=== PATIENT | female | born 1960 | race Caucasian/White ===

== ENCOUNTER 2023-06-18 06:16 | Outpatient (OUT) | payer OTHER, SELFPAY ==
--- NOTE | 2023-06-18 | PCN_ITS ---
CARDIAC STRESS TEST Requesting Physician:? Procedure Date:? 06/18/2023 This was a treadmill stress test with myocardial perfusion imaging performed at the [facility] on 06/18/2023.? Informed consent was obtained.? The patient was attached to electrocardiographic monitoring.? An intravenous line was secured. The patient exercised on the treadmill according to the Clement protocol.? Exercise time was 8 minutes and 31 seconds and the patient reached stage 3 of the protocol and achieved 10.1 METS. Cardiolite was injected at peak exercise. Resting heart rate was 51 BPM.? Maximum heart rate was 133 BPM, representing 84% of maximal predicted heart rate.? Resting blood pressure was 128/76 and maximum blood pressure was 188/82. Resting ECG showed sinus bradycardia with no ischemic changes.? ECG during treadmill exercise showed sinus tachycardia with occasional PVCs.? There was evidence of [address] segment depressions in leads 2, 3, AVF, V4, V5 and V6 that persisted into the recovery period.? After 4 minutes into recovery period, the ECG changes resolved and the ECG returned to baseline.? The patient developed dyspnea and severe nausea that resolved 2 minutes into recovery period. SUMMARY OF THE FINDINGS: 1.? Positive exercise stress test for exercise induced ischemic ECG changes. 2.? 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 3.? Resting hypertension with hypertensive response to exercise. 4. Myocardial perfusion imaging will be reported separately. TRESSA
--- NOTE | 2023-06-18 06:20 | NM_ITS ---
Patient: KAMAR DE LA TORRE Exam Date: 06/18/2023 : 1960 Gender:F Ordering : ANGELLA GANT Admission #: [id number] Family : DR Tristen Michaels . Order #: [id number] CLICK HERE TO VIEW EXAM RADIOLOGY REPORT PROCEDURE: NM KG PERF SPECT REST STR COMPARISON: None. INDICATIONS: Dyspnea on exertion TECHNIQUE: Exam Description: Stress/Rest one day protocol gated SPECT Rest Imagin.2 mCi Tc-99m Cardiolite IV on 06/18/2023 Stress Imaging 29.9 mCi Tc-99m Cardiolite IV on 06/18/2023 Exercise Protocol: Clement Heart Rate (bpm): Rest: 51 Max: 133 PMHR: 84 Blood Pressure: Rest: 128/76 Max: 188/82 Symptoms: fatigue, dyspnea, nausea Rest and peak stress ECG findings were abnormal and the exercise portion of the study was abnormal per attending physician Dr. Thomas due to EKG changes. For more details please see separate cardiac stress test report. FINDINGS: QUALITY OF STUDY: Excellent. PERFUSION DEFECT: None. LOCATION: N/A SIZE: N/A. SEVERITY: N/A. TYPE: N/A. WALL MOTION: Normal. LV SIZE: Normal. 73 mL. TID / TCD: None; 0.8 LVEF: Normal. Calculated EF 73%. SUMMARY: Myocardial perfusion imaging study is NORMAL. CONCLUSION: 1. Normal myocardial perfusion scan with no reversible ischemia 2. Abnormal exercise test secondary to EKG changes Dictated by: Vishal Botello MD on 06/19/2023 at 10:06 Approved by: Vishal Botello MD on 06/19/2023 at 10:08
== END 2023-06-18 06:17 | disposition home or self-care (01) ==
LOC: NM 06:16
PROVIDERS: PCP Family Medicine; Visit Provider Internal Medicine Cardiovascular Disease
DX: R07.9 Chest pain, unspecified (principal); R06.00 Dyspnea, unspecified; R53.83 Other fatigue; R11.0 Nausea
CPT/HCPCS: 78452; 93017; A9500

== ENCOUNTER 2023-06-20 14:07 | Outpatient (OUT) | payer OTHER, SELFPAY ==
--- NOTE | 2023-06-20 14:35 | CA_ITS ---
Patient: KAMAR DE LA TORRE Exam Date: 06/20/2023 : 1960 Gender:F Ordering : ANGELLA GANT Admission #: [id number] Family : Order #: [id number] CLICK HERE TO VIEW EXAM ECHOCARDIOGRAM REPORT PROCEDURE: CA ECHO DOPPLER COMPLETE INDICATIONS: Shortness of breath COMPARISON: None. DESCRIPTION: COMPLETE ECHOCARDIOGRAM Real-time transthoracic echocardiography with 2D, M-mode, spectral and color flow Doppler performed. QUALITY: Technical quality was good. LEFT VENTRICLE: Normal chamber size. Normal left ventricular wall thickness. Normal systolic function. LV EF: Normal left ventricular ejection fraction, (55%). DIASTOLIC: Normal diastolic function. ATRIAL SEPTUM: Visually appears intact. LEFT ATRIUM: Normal chamber size. RIGHT ATRIUM: Normal chamber size. RIGHT VENTRICLE: Normal chamber size. Normal right ventricular systolic function. TRICUSPID VALVE: Normal mobility and thickness. No stenosis with trivial regurgitation. No evidence of pulmonary hypertension. RVSP 33 mmHg MITRAL VALVE: Normal mobility and thickness. No evidence of mitral valve stenosis. There is no mitral annular calcification. Mild mitral regurgitation. AORTIC VALVE: Normal trileaflet appearance. No visible sclerosis. Normal leaflet mobility. No evidence of aortic valve stenosis. No aortic regurgitation. AORTIC ROOT: Normal diameter and appearance. PULMONIC VALVE: Normal thickness and mobility. No stenosis. Mild regurgitation. PERICARDIUM: No evidence of pericardial effusion. IVC: Collapses with inspirations. PLEURA: CONCLUSION: 1. Normal ventricular function. LVEF is 55%. 2. No significant valvular dysfunction. 3. Normal right-sided pressures. 4. No pericardial effusion. Adult Echocardiography Procedure Report Left Ventricle LVEDD (3.7 - 5.6 cm): 4.83 cm LVESD (2.2 - 4.0 cm): 3.25 cm LVIVS thickness (0.6 - 1.2 cm): 0.79 cm LVPW thickness (0.5 - 1.0 cm): 0.80 cm e': 0.10 m/s E - e': 4.74 LVOT Max Gradient: 2.54 mm[Hg] LVOT Area (cm2): 0.80 m/s Peak Velocity (LVOT): 0.80 m/s Mean Velocity (LVOT): 0.59 m/s LVOT Diameter 2.27 cm Left Atrium LA Volume Index (2D A2C): 27.53 ml/m2 Left Atrium Systolic Dimension: 3.79 cm Mitral Valve MV E to A Ratio: 0.71 Mitral Valve A-Wave Peak Velocity: 0.66 m/s Mitral Valve E-Wave Peak Velocity: 0.47 m/s Right Ventricle Aorta AO Root Diam: 3.07 cm Ascending Ao Diam: 2.51 cm Aortic Valve AoV Area (Peak Fernie): 2.42 cm2, 2.42 cm2 AoV Area (VTI): 2.47 cm2, 2.47 cm2 Peak Velocity(Antegrade Flow): 1.33 m/s Peak Gradient(Antegrade Flow): 7.05 mm[Hg] Mean Velocity(Antegrade Flow): 0.88 m/s Mean Gradient(Antegrade Flow): 3.60 mm[Hg] Velocity Time Integral: 30.52 cm Tricuspid Valve Peak Velocity (Regurgitant Flow): 2.75 m/s Pulmonic Valve Peak Velocity: 0.97 m/s Peak Gradient: 4.05 mm[Hg], 3.44 mm[Hg] Right Atrium Right Atrium Systolic Pressure: 37.56 ml, 37.56 ml Dictated by: Mundo Thomas M.D. on 06/20/2023 at 19:10 Approved by: Mundo Thomas M.D. on 06/20/2023 at 19:13
== END 2023-06-20 14:08 | disposition home or self-care (01) ==
LOC: CARD 14:07
PROVIDERS: PCP Family Medicine; Visit Provider Internal Medicine Cardiovascular Disease
DX: R06.02 Shortness of breath (principal)
CPT/HCPCS: 93306

== ENCOUNTER 2023-06-29 09:02 | Outpatient (OUT) | payer OTHER, SELFPAY ==
--- NOTE | 2023-06-29 | US_ITS ---
[address] [address] Patient Name: KAMAR DE LA TORRE MRN: [id number] date: 1960 Sex: F Assigned Patient Location: Current Patient Location: Accession/Order Number: [id number] Exam Date: 06/29/2023 09:15 Report Date: 06/29/2023 18:08 At the request of: ANGELA QUILES Procedure: US abdomen complete EXAM: US abdomen complete EXAM DATE: 06/29/2023 7:15 AM MDT COMPARISON: None available. INDICATION: R10.13 EPIGASTRIC PAIN FINDINGS: Liver parenchyma is homogeneous. Hepatic echotexture is relatively isoechoic to adjacent renal cortex (normal). Hepatic length measures 14.1 cm. Splenic parenchyma is homogeneous. Pancreas is partially obscured by bowel gas; visualized pancreatic parenchyma is homogeneous. Gallbladder is normally distended. No gallstones are identified. Gallbladder wall measures 1 mm. Sonographic Lyles's sign is absent. No intra-or extrahepatic bile duct dilatation noted. Portal vein is patent with normal hepatopedal flow. Aorta measures up to 2 cm in AP diameter. There is scattered atherosclerotic disease throughout the visualized aorta. No free fluid noted. Incidental note is made of a left ovarian cyst measuring up to 1.7 cm. No internal color Doppler flow is noted within this cyst. Dimensions- Common bile duct: 2.9 mm. Spleen: 9.5 cm in length. Right kidney: 9.9 x 6 x 5.7 cm. Left kidney: 9.5 x 4.8 x 4.2 cm. US/US abdomen complete IMPRESSION: 1. No acute sonographic abnormality identified within the abdomen. 2. Incidentally noted 1.7 cm simple appearing left ovarian cyst is within the physiological size range for a post-menopausal woman. 3. No gallstones or bile duct dilation identified. Sonographic Lyles's sign is absent. Electronically authenticated by: KANA MEJIA Date: 06/29/2023 18:08
== END 2023-06-29 09:03 | disposition home or self-care (01) ==
LOC: US 09:03
PROVIDERS: PCP Family Medicine; Visit Provider Nurse Practitioner Family
DX: R10.13 Epigastric pain (principal)
CPT/HCPCS: 76700

== ENCOUNTER 2023-10-08 11:39 | Outpatient (OUT) | payer OTHER, SELFPAY ==
[2023-10-08 11:59] LABS: Basophils Percent Auto 0.6 % (0.2-2.0); Eosinophils Percent Auto 0.7 % (0.9-7.0); Hematocrit 41.1 % (36.0-48.0); Hemoglobin 13.6 g/dL (12.0-16.0); Immature Granulocytes Abs Auto 0.01 10^3/uL (0.00-0.03); Immature Granulocytes Pct Auto 0.2 % (0.0-0.5); Lymphocytes Absolute Auto 1.2 10^3/uL (1.2-3.8); Lymphocytes Percent Auto 21.9 % (20.5-60.0); Mean Corpuscular HGB Conc 33.1 g/dL (29.9-35.2); Mean Corpuscular Volume 93.6 fL (81.0-99.0); Mean Platelet Volume 9.6 fL (9.5-13.5); Monocytes Absolute Auto 0.4 10^3/uL (0.3-0.8); Monocytes Percent Auto 7.9 % (1.7-12.0); Neutrophils Absolute Auto 3.7 10^3/uL (1.4-6.5); Neutrophils Percent Auto 68.7 % (43.0-75.0); Platelet Count 252 10^3/uL (150-450); Red Blood Count 4.39 10^6/uL (4.20-5.40); Red Cell Distribution Width 12.5 % (11.0-15.0); White Blood Count 5.3 10^3/uL (4.0-11.0)
[2023-10-08 13:37] LABS: Anion Gap 8.8; BUN Creatinine Ratio 18.3; Calcium 8.8 mg/dL (8.5-10.1); Carbon Dioxide 30.3 mmol/L (21.0-32.0); Chloride 105 mmol/L (98-107); Estimated GFR (African America >60 (>=60); Estimated GFR (Non-African Ame 51 (>=60); Glucose 83 mg/dL (74-106); Potassium 4.1 mmol/L (3.5-5.1); Sodium 140 mmol/L (136-145)
== END 2023-10-08 11:40 | disposition home or self-care (01) ==
LOC: LAB 11:43
PROVIDERS: PCP Family Medicine
DX: Z01.812 Encounter for preprocedural laboratory examination (principal); E04.1 Nontoxic single thyroid nodule
CPT/HCPCS: 36415; 80048; 85025

== ENCOUNTER 2023-11-30 12:40 | Outpatient (OUT) | payer OTHER, SELFPAY ==
--- OUTSIDE RECORDS SUMMARY | 2023-11-30 12:45 | XMS_ITS | CCD ---
Author Name Unknown Address [address] [place] [address] Organization [facility] Care Team Providers Care Cane Cutter Name Role Phone MD Payal Franco Attending Provider DIAB ., PAYAL Admitting Unavailable DIAB ., PAYAL Consulting Unavailable DIAB ., PAYAL Attending Unavailable HOY ., DR AGUAYO Primary Care Unavailable LEEROY VILLA Consulting Unavailable UNLUTL Consulting Unavailable HOY ., DR AGUAYO Admitting Unavailable HOY ., DR AGUAYO Primary Care Unavailable HOY ., DR AGUAYO Consulting Unavailable HOY ., DR AGUAYO Attending Unavailable ZIEBER, DR ANDREW Cabrera Consulting Unavailable HOY ., DR AGUAYO Attending Unavailable HOY ., DR AGUAYO Admitting Unavailable HOY ., DR AGUAYO Primary Care Unavailable LONAY ., DR AGUAYO Consulting Unavailable MD Dede Michaels Primary Care Provider [phone] MD Oziel Whalen Attending Provider Oziel Whalen Admitting Unavailable Oziel Whalen Attending Unavailable Ddee Michaels Primary Care Unavailable Diab, Payal A Admitting Unavailable Diab, Payal A Attending Unavailable Dede Michaels Primary Care Unavailable Markell Odell Unavailable ANGELLA JI Attending Unavailable ANGELLA JI Attending Unavailable ANGELLA JI Attending Unavailable Allergies Allergy Classification Reported Allergen(s) Allergy Type Date of Onset Reaction(s) Facility (1 source) bee venom Drug allergy (disorder) [facility] Repository (2 sources) venom-honey bee; Translations: [venom-honey bee] Allergy to substance 07-08-20 Anaphylaxis [facility] (2 sources) Sulfamethoxazole / Trimethoprim Drug Allergy upset stomach [employer] Other Medications Current Medications Medication Drug Class(es) Dates Sig (Normalized) Sig (Original) [id number] 200 actuat albuterol 0.09 mg/actuat metered dose inhaler (1 source) beta2-Adrenergi c Agonist Start: 07-08-2023 take 90 ug by inhalation every four hours Albuterol Sulfate Active 90 MCG INHALATION Q4H July 08, 2023 12:00am apixaban 5 mg oral tablet (1 source) Factor Xa Inhibitor Start: 07-08-2023 take 1 tablet by mouth once daily Apixaban (Eliquis) 5 mg tablet Active 5 MG PO Daily July 08, 2023 12:00am cholecalciferol 0.125 mg oral tablet (1 source) Vitamin D Start: 07-08-2023 take 1 tablet by mouth once daily Cholecalciferol (Vitamin D3) (Vitamin D3) 125 mcg (5,000 unit) Tablet Active 125 MCG PO Daily July 08, 2023 12:00am FLUoxetine 20 mg oral capsule (3 sources) Serotonin Reuptake Inhibitor Start: 07-08-2023 take 1 capsule by mouth once daily Fluoxetine (Prozac) 20 mg Capsule Active 20 MG PO Daily July 08, 2023 12:00am PROzac Active methIMAzole 10 mg oral tablet (3 sources) Thyroid Hormone Synthesis Inhibitor Start: 07-08-2023 Methimazole Active 1 0 MG PO LOADING DOSE July 08, 2023 12:00am methIMAzole Acti ve metoprolol tartrate 25 mg oral tablet (3 sources) beta-Adrenergic Julia Start: 07-08-2023 take 12.5 mg by mouth once daily Metoprolol Tartrate Active 12.5 MG PO Daily July 08, 2023 12:00am Metoprolol Tartr ate Active omeprazole 40 mg delayed release oral capsule (4 sources) Proton Pump Inhibitor Start: 08-16-2023 take 1 capsule by mouth once daily Omeprazole 40 MG 1 capsule 30 minutes before morning meal Orally Once a day for 30 day(s) Aug, Active Start: 07-09-2023 take 40 mg by mouth once daily Omeprazole Active 40 MG PO Daily July 09, 2023 12:00am Start: 07-08-2023 End: 07-09-2023 take 1 capsule by mouth once daily Omeprazole (Prilosec) 20 mg Capsule,Delayed Release(Dr/Ec) Discontinued 20 MG PO Daily July 08, 2023 12:00am July 09, 2023 2:03pm Problems Active Problems Problem Classification Problem Date Documented Da te Episodic/Chronic Abdominal hernia (2 sources) Diaphragmatic hernia without obstruction or gangrene Episodic Acute bronchitis (1 source) Acute bronchitis due to other specified organisms; Translations: [ACUTE BRONCHITIS D/T SPEC ORGANISMS] Onset: 04-30-2023 Episodic Cardiac dysrhythmias (3 sources) Unspecified atrial fibrillation; Translations: [Paroxysmal atrial fibrillation] Onset: 04-30-2023 Chronic Congestive heart failure; nonhypertensive (1 source) Unspecified diastolic (congestive) heart failure; Translations: [UNSPECIFIED DIASTOLIC HEART FAILURE] Onset: 06-13-2022 Chronic Heart valve disorders (1 source) Nonrheumatic pulmonary valve insufficiency; Translations: [NONRHEUMATIC PULMONARY VALVE INSUFF] Onset: 06-13-2022 Chronic Hypertension with complications and secondary hypertension (1 source) Hypertensive heart disease with heart failure; Translations: [HTN HEART DISEASE W/HEART FAIL] Onset: 06-13-2022 Chronic Other aftercare (1 source) 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; Translations: [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] Onset: 04-30-2023 Episodic Other gastrointestinal disorders (1 source) Dysphagia, unspecified; Translations: [Dysphagia, unspecified] Onset: 07-09-2023 Episodic Other lower respiratory disease (4 sources) Shortness of breath; Translations: [SHORTNESS OF BREATH] Onset: 04-29-2023 Episodic Other lower respiratory disease (1 source) Shortness of breath; Translations: [Shortness of breath] Onset: 04-29-2023 Episodic Thyroid disorders (1 source) Autoimmune thyroiditis; Translations: [AUTOIMMUNE THYROIDITIS] Onset: 04-30-2023 Chronic Viral infection (1 source) COVID-19; Translations: [COVID-19] Onset: 06-13-2022 Past or Other Problems Problem Classification Problem Date Documented Da te Episodic/Chronic Deficiency and other anemia (1 source) Anemia, unspecified; Translations: [ANEMIA UNSPECIFIED] Onset: 06-13-2022 Episodic Diabetes mellitus without complication (1 source) Other abnormal glucose; Translations: [OTHER ABNORMAL GLUCOSE] Onset: 06-13-2022 Episodic Other lower respiratory disease (5 sources) Dyspnea, unspecified; Translations: [DYSPNEA UNSPECIFIED] Onset: 06-02-2022 Episodic Other screening for suspected conditions (not mental disorders or infectious disease) (4 sources) Abnormal results of kidney function studies; Translations: [ABNORM RESULTS KIDNEY FUNCTION STDY] Onset: 06-11-2022 Episodic Results Test Name Value Interpretation Reference Range Facility Office Visiton 08-09-2023 Follow-up visit [id number] Liliana Vázquez 1960 F Date Provider Department Center 08/09/2023 3848-ANGELLA JI CARD [facility] Family History Problem Relation Age of Onset Stroke Mother Stroke Father Stroke Sister Family Status - Relation Status Age at Mother Father Sister Level of Service:91244 [place] OFFICE/OUTPATIENT ESTABLISHED MOD MDM 30-[address] [facility] Neeraj 07-09-2023 L - -------- Specimen: [id number] Received: 07/09/23 Status: MITCHELL Elina Num: [id number] Spec Type: Surgical Subm Dr: Oziel Whalen MD Tissues: A Esophagus Biopsy (ESOPHAGUS BX) Procedures: HE/Ivelisse, Gross/Micro L4 -------- Age/ Patient Sex Location Account Attending Physician -------- Liliana Vázquez 63/F [id number] Oziel Whalen MD -------- SPEC NUM: [id number] RECD: 07/09/23 STATUS: MITCHELL ANTOINE NUM: [id number] RUSYT: 07/09/23- [facility] DR: Oziel Whalen MD ENTERED: 07/09/[address] [facility] [address]: SPEC TYPE: Surgical DEPT: S ORDERED: HE/2, Gross/Micro L4 ORDERED: HE/2, Gross/Micro L4 Pathological Diagnosis Esophagus, biopsy: - Squamous esophageal mucosa with mild chronic esophagitis - No columnar mucosa identified - No evidence of eosinophilic esophagitis identified Clinical Information Dysphagia, rule out EOE Gross Description Received in formalin labeled with the patient's name, date of and esophagus biopsy is one padilla tissue measuring 0.5 x 0.2 x 0.1 cm. Entirely submitted in one cassette labeled A1. Microscopic Description Two H E slides reviewed. The microscopic examination confirms the diagnosis. -------- Specimen: [id number] Received: 07/09/23 Status: MITCHELL Antoine Num: [id number] Spec Type: Surgical Subm Dr: Oziel Whalen MD Tissues: A Esophagus Biopsy (ESOPHAGUS BX) Procedures: Caleb MARTIN -------- Patient: Liliana Vázquez [id number] (Continued) -------- Specimen: [id number] Received: 07/09/23 (Continued) Signed (signature on file) Jaylen Sauceda MD 07/11/23 1157 -------- Specimen: [id number] Received: 07/09/23 Status: MITCHELL Antoine Num: [id number] Spec Type: Surgical Subm Dr: Oziel Whalen MD Tissues: A Esophagus Biopsy (ESOPHAGUS BX) Procedures: Michael MARTIN/Felton L4 -------- Patient: Liliana Vázquez [id number] (Continued) -------- Specimen: [id number] Received: 07/09/23 (Continued) CPT Codes 53153 -------- -------- Specimen: [id number] Received: 07/09/23 Status: MITCHLEL Antoine Num: [id number] Spec Type: Surgical Subm Dr: Oziel Whalen MD Tissues: A Esophagus Biopsy (ESOPHAGUS BX) Procedures: HE/2, Gross/Micro L4 -------- Patient: Liliana Vázquez [id number] (Continued) -------- Signed (signature on file) Jaylen Sauceda MD 07/11/23 1157 [facility] 36on 07-02-2023 36 Patient's event monitor showed 19 mins of afib this morning. Strip was emailed to Dr. Ji who recommended she start Eliquis 5mg bid. I then spoke with patient who agreed to start it. Rx was sent to her pharmacy. [facility] Office Visiton 06-25-2023 Follow-up visit [id number] GurpreetLiliana S 1960 F Date Provider Department [facility] No family history on file Level of Service:18071 [place] OFFICE/OUTPATIENT ESTABLISHED MOD MDM 30-39 MIN [facility] Office Visiton 06-07-2023 Follow-up visit [id number] Liliana Vázquez 1960 F Date Provider Department Center 06/07/2023 ANGELLA GRIER ROMA [facility] No family history on file Level of Service:77474 [place] OFFICE/OUTPATIENT NEW MODERATE MDM 45-59 MINUTES [facility] BNPon 04-29-2023 Natriuretic peptide B (Bld) [Mass/Vol] 181.0 pg/mL Normal <=900.0 [facility] Comment on above: Performed By: #### B LOOSE HAND PACKER, CMP, CMADM ####[facility] [address] [place] [address]DrStefania Barnhart CARDIAC NAVA ADMITon 05-29-2 023 CK [Catalytic activity/Vol] 78 U/L Normal 26-192 [facility] Comment on above: Performed By: #### B LOOSE HAND PACKER, CMP, CMADM ####[facility] [address] [place] [address]Dr. Madison Barnhart CK.MB [Mass/Vol] ng/mL Normal <=3.60 [facility] Comment on above: Performed By: #### B LOOSE HAND PACKER, CMP, CMADM ####[facility] [address] [place] [address]Dr. Madison Barnhart HSTROP 5.2 pg/mL Normal 4.0-51.3 [facility] Comment on above: Result Comment: CUT- OFF POINTS HAVE BEEN ESTABLISHED BASED ON THE FOURTH UNIVERSAL DEFINITIONS OF MYOCARDIAL INFARCTION. THE UPPER REFERENCE LIMIT (URL) OF TROPONIN, DEFINED THE 99TH PERCENTILE OF cTnI DISTRIBUTION IN A REFERENCE POPULATION, HAS BEEN CONFIRMED THE DECISION THRESHOLD FOR MS DIAGNOSIS. Performed By: #### B LOOSE HAND PACKER, CMP, CMADM ####[facility] [address] [place] [address]Dr. Madison Barnhart KG 72 ng/mL Normal 9-82 [facility] Comment on above: Performed By: #### B LOOSE HAND PACKER, CMP, CMADM ####[facility] [address] [place], [place] [address]Dr. Madison Barnhart CBC AUTO DIFFon 04-29-2023 BASO # 0.0 103/ul Normal 0.0-0.1 [facility] Comment on above: Performed By: #### C BC ####[facility] [address] [place] [address]Dr. Madison Barnhart Basophils/100 WBC (Bld) 0.3 % Normal 0.2-2.0 [facility] Comment on above: Performed By: #### C BC ####[facility] [address] [place], [place] [address]DrStefania Barnhart EO # 0.1 103/ul Normal 0.0-0.7 [facility] Comment on above: Performed By: #### C BC ####[facility] [address] [place], [place] [address]DrStefania Barnhart Eosinophils/100 WBC (Bld) 2.2 % Normal 0.9-7.0 [facility] Comment on above: Performed By: #### C BC ####[facility] [address] [place] [address]Dr. Madison Barnhart Erythrocyte distribution width (RBC) [Ratio] 13.1 % Normal 11.0-15.0 [facility] Comment on above: Performed By: #### C BC ####[facility] [address] [place], [place] [address]Dr. Madison Barnhart Hematocrit (Bld) [Volume fraction] 42.1 % Normal 36.0-48.0 [facility] Comment on above: Performed By: #### C BC ####[facility] [address] [place], [place] [address]Dr. Madison Barnhart Hemoglobin (Bld) [Mass/Vol] 13.9 g/dL Normal 12.0-16.0 [facility] Comment on above: Performed By: #### C BC ####[facility] [address] [place], [place] [address]Dr. Madison Barnhart IG # 0.04 10e3/ul Critically high 0.00-0.03 The [facility] Comment on above: Performed By: #### C BC ####[facility] [address] [place], [place] [address]Dr. Madison Barnhart IG % 0.7 % Critically high 0.0-0.5 The [facility] Comment on above: Performed By: #### C BC ####[facility] [address] [place], [place] [address]Dr. Madison Barnhart LYMPH # 0.5 103/ul Critically low 1.2-3.8 The [facility] Comment on above: Performed By: #### C BC ####[facility] [address] [place], [place] [address]Dr. Madison Barnhart Lymphocytes/100 WBC (Bld) 7.9 % Critically low 20.5-60.0 [facility] Comment on above: Performed By: #### C BC ####[facility] [address] [place] [address]Dr. Madison Barnhart MANUAL DIFF REQ NO Normal [facility] Comment on above: Performed By: #### C BC ####[facility] [address] [place] [address]Dr. Madison Barnhart MCH (RBC) [Entitic mass] 30.7 pg Normal 26.7-34.0 [facility] Comment on above: Performed By: #### C BC ####[facility] [address] [place] [address]Dr. Madison Barnhart MCHC (RBC) [Mass/Vol] 33.0 g/dL Normal 29.9-35.2 [facility] Comment on above: Performed By: #### C BC ####[facility] [address] [place], [place] [address]Dr. Madison Obey MCV (RBC) [Entitic vol] 92.9 fL Normal 81.0-99.0 [facility] Comment on above: Performed By: #### C BC ####[facility] [address] [place], [place] [address]Dr. Madison Obey MONO # 0.8 103/ul Normal 0.3-0.8 [facility] Comment on above: Performed By: #### C BC ####[facility] [address] [place] [address]Dr. Lamarhilario Barnhart Monocytes/100 WBC (Bld) 13.1 % Critically high 1.7-12.0 [facility] Comment on above: Performed By: #### C BC ####[facility] [address] [place] [address]Dr. Madison Obey NEUT # 4.6 103/ul Normal 1.4-6.5 [facility] Comment on above: Performed By: #### C BC ####[facility] [address] [place], [place] [address]Dr. Madison Obey Neutrophils/100 WBC (Bld) 75.8 % Critically high 43.0-75.0 [facility] Comment on above: Performed By: #### C BC ####[facility] [address] [place], [place] [address]Zx. Madison Barnhart Platelet mean volume (Bld) [Entitic vol] 9.4 fL Critically low 9.5-13.5 [facility] Comment on above: Performed By: #### C BC ####[facility] [address] [place], [place] [address]Hr. Madison Barnhart PLT 237 103/ul Normal 150-450 [facility] Comment on above: Performed By: #### C BC ####[facility] [address] [place], [place] [address]Xl. Madison Barnhart RBC 4.53 106/ul Normal 4.20-5.40 [facility] Comment on above: Performed By: #### C BC ####[facility] [address] [place], [place] [address]Yf. Madison Barnhart WBC 6.0 103/ul Normal 4.0-11.0 [facility] Comment on above: Performed By: #### C BC ####[facility] [address] [place], [place] [address] CHEST W CONon 04-29-2023 CT CHEST W CON EXAMINATION: CT CHES T W CON HISTORY: SHORTNESS OF BREATH COMPARISON: XR chest 04/29/2023, CTA chest 06/02/2022. TECHNIQUE: Helical axial CT images of the chest were obtained after the administration of intravenous contrast. Dose reduction techniques were achieved by using automated exposure control and/or adjustment of mA and/or kV according to patient size and/or use of iterative reconstruction technique. FINDINGS: VASCULATURE: No aneurysm. No atherosclerotic calcification. HEART/PERICARDIUM: The heart is normal in size. No pericardial effusion. MEDIASTINAL/HILAR LYMPH NODES: No lymphadenopathy. ESOPHAGUS: Normal as visualized. PLEURAL CAVITY: No pleural effusion or pneumothorax. LUNGS/AIRWAYS: No areas of consolidation, nodule or mass is seen. There are areas of scarring in bilateral apex, bilateral lower lobes and right middle lobe. The central airways are patent. CHEST WALL/AXILLA/LOWER NECK: There are small low-attenuation nodules in bilateral thyroid lobes. VISUALIZED UPPER ABDOMEN: Images through the upper abdomen demonstrates no acute abnormality. Decreased density of the liver, likely represent steatosis. BONES: No acute process.. IMPRESSION: No acute cardiopulmonary abnormality. Small low-attenuation nodules in bilateral thyroid lobes. Ultrasound is recommended for better evaluation on nonemergent basis. Electronically authenticated by: TL UNLU Date: 2023-04-29 14:57 Normal [facility] D-Dimer High Sensitivityon 0 04-29-2023 D-Dimer High Sensitivity < 200 Normal 0-243 [facility] Comment on above: Result Comment: The reference range for D-dimer is <243 ng/mL D-dimer units. D-dimer results must be used in conjunction with a clinical pretest probability (PTP) assessment model for deep vein thrombosis (DVT) and pulmonary embolism (PE). Results <230 ng/mL d-dimer units can be used as a negative predictor in patients with low or moderate probability for DVT/PE. Results above the exclusion threshold of 230 ng/ml D-dimer units for DVT/PE may indicate the need for further diagnostic testing. D-Dimer can be increased in hospitalized patients due to co-morbid conditions. PERFORMED BY: [place] [address] PATHOLOGIST FENCE INSTALLER HELPER HOWIE BARKER M.D. Performed By: #### D DIMER #### [address] No Panel InformationOrdered By: Payal Franco on 04-29-2023 D-Dimer Quantitative (PE/DVT) < 200 ng/mL 0-243 [facility] Comment on above: The reference range for D-dimer is <243 ng/mL D-dimer units.D-dimer results must be used in conjunction with a clinicalpretest probability (PTP) assessment model for deep veinthrombosis (DVT) and pulmonary embolism (PE). Results <230ng/mL d-dimer units can be used as a negative predictor inpatients with low or moderate probability for DVT/PE.Results above the exclusion threshold of 230 ng/ml D-dimerunits for DVT/PE may indicate the need for furtherdiagnostic testing.D-Dimer can be increased in hospitalized patients due toco-morbid conditions. PROF 14(COMP METB)on 023 Albumin [Mass/Vol] 3.2 g/dL Critically low 3.4-5.0 [facility] Comment on above: Performed By: #### B LOOSE HAND PACKER, CMP, CMADM ####[facility] [address] [place] [address]Dr. Madison Obey Albumin/Globulin [Mass ratio] 1.1 {ratio} Normal [facility] Comment on above: Performed By: #### B LOOSE HAND PACKER, CMP, CMADM ####[facility] [address] [place] [address]Dr. Madison Barnhart ALP [Catalytic activity/Vol] 119 U/L Critically high 46-116 [facility] Comment on above: Performed By: #### B LOOSE HAND PACKER, CMP, CMADM ####[facility] [address] [place] [address]Dr. Madison Barnhart ALT [Catalytic activity/Vol] 32 U/L Normal 14-59 [facility] Comment on above: Performed By: #### B LOOSE HAND PACKER, CMP, CMADM ####[facility] [address] [place] [address]Dr. Madison Barnhart Anion gap [Moles/Vol] 10.4 mmol/L Normal [facility] Comment on above: Performed By: #### B LOOSE HAND PACKER, CMP, CMADM ####[facility] [address] [place] [address]Dr. Madison Barnhart AST [Catalytic activity/Vol] 21 U/L Normal 15-37 [facility] Comment on above: Performed By: #### B LOOSE HAND PACKER, CMP, CMADM ####[facility] [address] [place] [address]Dr. Madison Barnhart Bilirubin [Mass/Vol] 0.6 mg/dL Normal 0.2-1.0 [facility] Comment on above: Performed By: #### B LOOSE HAND PACKER, CMP, CMADM ####[facility] [address] [place] [address]Dr. Madison Barnhart Calcium [Mass/Vol] 8.2 mg/dL Critically low 8.5-10.1 [facility] Comment on above: Performed By: #### B LOOSE HAND PACKER, CMP, CMADM ####[facility] [address] [place] [address]Dr. Madison Barnhart Chloride [Moles/Vol] 107 mmol/L Normal 98-107 [facility] Comment on above: Performed By: #### B LOOSE HAND PACKER, CMP, CMADM ####[facility] [address] [place] [address]Dr. Madison Barnhart CO2 [Moles/Vol] 27.7 mmol/L Normal 21.0-32.0 [facility] Comment on above: Performed By: #### B LOOSE HAND PACKER, CMP, CMADM ####[facility] [address] [place] [address]Dr. Madison Barnhart Creatinine [Mass/Vol] 1.19 mg/dL Critically high 0.55-1.02 [facility] Comment on above: Performed By: #### B LOOSE HAND PACKER, CMP, CMADM ####[facility] [address] [place] [address]Dr. Madison Barnhart EGFR-AF GUATEMALAN 56 mL/min/1.73m2 Critically low >=60 [facility] Comment on above: Performed By: #### B LOOSE HAND PACKER, CMP, CMADM ####[facility] [address] [place] [address]Dr. Madison Barnhart EGFR-NON AF GUATEMALAN 46 mL/min/1.73m2 Critically low >=60 [facility] Comment on above: Performed By: #### B LOOSE HAND PACKER, CMP, CMADM ####[facility] [address] [place] [address]Dr. Madison Barnhart Globulin (S) [Mass/Vol] 3.0 g/dL Normal [facility] Comment on above: Performed By: #### B LOOSE HAND PACKER, CMP, CMADM ####[facility] [address] [place] [address]Dr. Madison Barnhart Glucose [Mass/Vol] 122 mg/dL Critically high 74-106 [facility] Comment on above: Performed By: #### B LOOSE HAND PACKER, CMP, CMADM ####[facility] [address] [place] [address]Dr. Madison Barnhart Potassium [Moles/Vol] 4.1 mmol/L Normal 3.5-5.1 [facility] Comment on above: Performed By: #### B LOOSE HAND PACKER, CMP, CMADM ####[facility] [address] [place] [id number]. Madison Barnhart Protein [Mass/Vol] 6.2 g/dL Critically low 6.4-8.2 [facility] Comment on above: Performed By: #### B LOOSE HAND PACKER, CMP, CMADM ####[facility] [address] [place] [id number]. Madison Barnhart Sodium [Moles/Vol] 141 mmol/L Normal 136-145 [facility] Comment on above: Performed By: #### B LOOSE HAND PACKER, CMP, CMADM ####[facility] [address] [place] [id number]. Madison Barnhart Urea nitrogen [Mass/Vol] 16.0 mg/dL Normal 7.0-18.0 [facility] Comment on above: Performed By: #### B LOOSE HAND PACKER, CMP, CMADM ####[facility] [address] [id number]. Madison Barnhart Urea nitrogen/Creatinine [Mass ratio] 13.4 mg/mg Normal [facility] Comment on above: Performed By: #### B LOOSE HAND PACKER, CMP, CMADM ####[facility] [address] [place] [address]Dr. Madison Barnhart TROPONIN, HIGH SENSITIVITYon 04-29-2023 HSTROP 5.2 pg/mL Normal 4.0-51.3 [facility] Comment on above: Result Comment: CUT- OFF POINTS HAVE BEEN ESTABLISHED BASED ON THE FOURTH UNIVERSAL DEFINITIONS OF MYOCARDIAL INFARCTION. THE UPPER REFERENCE LIMIT (URL) OF TROPONIN, DEFINED THE 99TH PERCENTILE OF cTnI DISTRIBUTION IN A REFERENCE POPULATION, HAS BEEN CONFIRMED THE DECISION THRESHOLD FOR MS DIAGNOSIS. Performed By: #### H STROPN #### [facility] Laboratory [address] [address] [address] Madison Barnhart XR CHEST 1 Von 04-29-2023 XR CHEST 1 V XR CHEST 1 V 04/29/2023 11:20 AM EDT INDICATION: Dyspnea COMPARISON: CT angiography of the chest 06/02/2022, radiograph of the chest 05/06/2019 FINDINGS: Cardiomediastinal silhouette within normal limits. No focal consolidation or pleural effusion. No pneumothorax. No acute fracture or dislocation. IMPRESSION: No acute cardiopulmonary process. Electronically authenticated by: LEEROY VILLA Date: 2023-04-29 11:45 Normal [facility] CREATININE CLEARon 2 CREA CLEARANCE 79.62 ml/min Normal 75.00-115.[address] [facility] Comment on above: Result Comment: Prev iously reported as: 1.74 On 06/11/2022 10:36 By [email or web address] Performed By: #### C REACL #### [facility] Laboratory [address] [place] [address] Dr. Madison Barnhart CREA, 24 HR UR 1359.90 mg/24 hr Normal 800.00-1, 800. 00 [facility] Comment on above: Performed By: #### C REACL #### [facility] Laboratory [address] [place] [address] Dr. Madison Barnhart Creatinine [Mass/Vol] 1.08 mg/dL Critically high 0.55-1.02 [facility] Comment on above: Result Comment: repe ated Previously reported as: 49.42 On 06/11/2022 10:36 By [email or web address] Performed By: #### C REACL #### [facility] [address] [place] [address] Dr. Madison Barnhart UR TOT VOL 3000 ml/24 HR Normal [facility] Comment on above: Performed By: #### C REACL #### [facility] [address] [place] [address] Dr. Madison Barnhart URINE CREAT 45.33 mg/dL Normal 20.00-300.00 [facility] Comment on above: Performed By: #### C REACL #### [facility] Laboratory [address] [place] [address] Dr. Madison Barnhart ECHOCARDIO M/2D COMPLETEon 0 06-11-2022 ECHOCARDIO M/2D COMPLETE Patient: LILIANA VÁZQUEZ Exam Date: 06/11/2022 : 1960 Gender:F Ordering : DR DEDE MICHAELS . Admission #: [id number] Family : Order #: [id number] CLICK HERE TO VIEW EXAM ECHOCARDIOGRAM REPORT PROCEDURE: CARDIO PULMONARY ECHOCARDIO M/2D COMP INDICATIONS: Dyspnea, Acute Covid COMPARISON: None. DESCRIPTION: COMPLETE ECHOCARDIOGRAM Real-time transthoracic echocardiography with 2D, M-mode, spectral and color flow Doppler performed. QUALITY: Technical quality was good. LEFT VENTRICLE: Normal chamber size. Normal wall thickness. Global left ventricular systolic function is normal. LV EF: Calculated left ventricular ejection fraction is 61% DIASTOLIC: Normal diastolic function. ATRIAL SEPTUM: LEFT ATRIUM: Normal chamber size. RIGHT ATRIUM: Mild dilatation. RIGHT VENTRICLE: Normal chamber size. Normal right ventricular systolic function. TRICUSPID VALVE: Normal mobility and thickness. No stenosis with trivial regurgitation. No evidence of pulmonary hypertension. RVSP 33 mmHg MITRAL VALVE: Mild anterior leaflet prolapse. No evidence of mitral valve stenosis. There is no mitral annular calcification. Mild mitral regurgitation. AORTIC VALVE: Normal trileaflet appearance. No visible sclerosis. Normal leaflet mobility. No evidence of aortic valve stenosis. No aortic regurgitation. AORTIC ROOT: Normal diameter and appearance. PULMONIC VALVE: Normal thickness and mobility. No stenosis. Mild regurgitation. PERICARDIUM: No evidence of pericardial effusion. IVC: Normal in size and collapses with inspiration. PLEURA: CONCLUSION: 1. Normal left ventricular size and wall thickness. Normal systolic function. LVEF is 60 to 65%. 2. Normal right ventricular size and systolic function. 3. Normal diastolic function. 4. Mild anterior mitral leaflet prolapse with mild regurgitation. 5. Mild pulmonary regurgitation. 6. Normal right-sided pressures. 7. No pericardial effusion. Dictated by: Mundo Thomas M.D. on 06/11/2022 at 16:21 Approved by: Mundo Thomas M.D. on 06/11/2022 at 16:26 Normal [facility] PROTEIN 24HR URINEon 022 T PROT, 24 HR UR 123.0 mg/24 hr Normal <=149.1 [facility] Comment on above: Performed By: #### P ROT24U ####[facility] [address] [place], [place] [address]QxStefania Barnhart UR PROT 4.1 mg/dL Normal <=11.9 [facility] Comment on above: Performed By: #### P ROT24U ####[facility] [address] [place] [address]DrStefania Barnhart UR TOT VOL 3000 ml/24 HR Normal [facility] Comment on above: Performed By: #### P ROT24U ####[facility] [address] [place] [address]DrStefania Barnhart INSULINon 06-05-2022 Insulin 10.2 uIU/mL Normal 2.6-24.9 [facility] Comment on above: Performed By: #### I NSULIN ####[facility] [address] [place] [address]DrStefania Barnhart BNPon 06-02-2022 Natriuretic peptide B (Bld) [Mass/Vol] 215.0 pg/mL Normal <=900.0 [facility] Comment on above: Performed By: #### L IPID, T7, TSH, BNP, CMP #### [facility] Laboratory [address] [address] [address] Madison Barnhart CBC AUTO DIFFon 06-02-2022 BASO # 0.0 103/ul Normal 0.0-0.1 [facility] Comment on above: Performed By: #### C BC ####[facility] [address] [place] [address]DrStefania Barnhart Basophils/100 WBC (Bld) 0.7 % Normal 0.2-2.0 [facility] Comment on above: Performed By: #### C BC ####[facility] [address] [place] [address]DrStefania Barnhart EO # 0.1 103/ul Normal 0.0-0.7 [facility] Comment on above: Performed By: #### C BC ####[facility] [address] [place] [address]DrStefania Barnhart Eosinophils/100 WBC (Bld) 1.5 % Normal 0.9-7.0 [facility] Comment on above: Performed By: #### C BC ####[facility] [address] [place], [place] [address]DrStefania Barnhart Erythrocyte distribution width (RBC) [Ratio] 13.2 % Normal 11.0-15.0 [facility] Comment on above: Performed By: #### C BC ####[facility] [address] [place] [address]Dr. Madison Barnhart Hematocrit (Bld) [Volume fraction] 42.2 % Normal 36.0-48.0 [facility] Comment on above: Performed By: #### C BC ####[facility] [address] [place] [address]Dr. Madison Barnhart Hemoglobin (Bld) [Mass/Vol] 13.7 g/dL Normal 12.0-16.0 [facility] Comment on above: Performed By: #### C BC ####[facility] [address] [place], [place] [address]Dr. Madison Barnhart IG # 0.04 10e3/ul Critically high 0.00-0.03 [facility] Comment on above: Performed By: #### C BC ####[facility] [address] [place], [place] [address]Dr. Madison Barnhart IG % 0.7 % Critically high 0.0-0.5 [facility] Comment on above: Performed By: #### C BC ####[facility] [address] [place], [place] [address]Dr. Madison Barnhart LYMPH # 1.3 103/ul Normal 1.2-3.8 [facility] Comment on above: Performed By: #### C BC ####[facility] [address] [place], [place] [address]Dr. Madison Barnhart Lymphocytes/100 WBC (Bld) 23.3 % Normal 20.5-60.0 [facility] Comment on above: Performed By: #### C BC ####[facility] [address] [place], [place] [address]Dr. Madison Barnhart MANUAL DIFF REQ NO Normal [facility] Comment on above: Performed By: #### C BC ####[facility] [address] [place], [place] [address]Dr. Madison Barnhart MCH (RBC) [Entitic mass] 30.6 pg Normal 26.7-34.0 [facility] Comment on above: Performed By: #### C BC ####[facility] [address] [place] [address]Dr. Lamarhilario Obey MCHC (RBC) [Mass/Vol] 32.5 g/dL Normal 29.9-35.2 [facility] Comment on above: Performed By: #### C BC ####[facility] [address] [place] [address]Dr. Madison Barnhart MCV (RBC) [Entitic vol] 94.2 fL Normal 81.0-99.0 [facility] Comment on above: Performed By: #### C BC ####[facility] [address] [place], [place] [address]DrStefania Barnhart MONO # 0.5 103/ul Normal 0.3-0.8 [facility] Comment on above: Performed By: #### C BC ####[facility] [address] [place], [place] [address]Dr. Madison Barnhart Monocytes/100 WBC (Bld) 8.8 % Normal 1.7-12.0 [facility] Comment on above: Performed By: #### C BC ####[facility] [address] [place], [place] [address]DrStefania Barnhart NEUT # 3.5 103/ul Normal 1.4-6.5 [facility] Comment on above: Performed By: #### C BC ####[facility] [address] [place], [place] [address]Dr. Madison Barnhart Neutrophils/100 WBC (Bld) 65.0 % Normal 43.0-75.0 [facility] Comment on above: Performed By: #### C BC ####[facility] [address] [place], [place] [address]DrStefania Barnhart Platelet mean volume (Bld) [Entitic vol] 9.0 fL Critically low 9.5-13.5 [facility] Comment on above: Performed By: #### C BC ####[facility] [address] [place], [place] [address]Dr. Madison Barnhart PLT 245 103/ul Normal 150-450 [facility] Comment on above: Performed By: #### C BC ####[facility] [address] [place] [address]Dr. Madison Barnhart RBC 4.48 106/ul Normal 4.20-5.40 [facility] Comment on above: Performed By: #### C BC ####[facility] [address] [place] [id number] Barnhart WBC 5.4 103/ul Normal 4.0-11.0 [facility] Comment on above: Performed By: #### C BC ####[facility] [address] [place] [address]Dr. Madison Barnhart FREE THYROXINE INDEX T7on FTI 2.26 Normal 1.30-4.50 [facility] Comment on above: Performed By: #### L IPID, T7, TSH, BNP, CMP #### [facility] Laboratory [address] [address] [address] Madison Barnhart T3U 31.0 % Normal 30.0-39.0 [facility] Comment on above: Performed By: #### L IPID, T7, TSH, BNP, CMP #### [facility] [address] [address] [address] Madison Barnhart T4 [Mass/Vol] 7.30 ug/dL Normal 4.80-13.90 [facility] Comment on above: Performed By: #### L IPID, T7, TSH, BNP, CMP #### [facility] [address] [address] [address] Madison Barnhart GLYCOHEMOGLOBIN A1Con 2021 ADA RECOMMENDATION SEE BELOW Normal [facility] Comment on above: Result Comment: ADA RECOMMENDED LIMIT 4.0 - 6.0 ADA THERAPEUTIC TARGET < 7.0 ACTION SUGGESTED > 7.0 Performed By: #### A 1C ####[facility] [address] [place] [address]Dr. Madison Barnhrat Glucose [Mass/Vol] 117 mg/dL Normal [facility] Comment on above: Performed By: #### A 1C ####[facility] [address] [place], [place] [address]OkStefania Barnhart HbA1c (Bld) [Mass fraction] 5.7 % Normal 4.5-6.2 [facility] Comment on above: Performed By: #### A 1C ####[facility] [address] [place], [place] [address]YeStefania Barnhart IRONon 06-02-2022 Iron [Mass/Vol] 85.0 ug/dL Normal 50.0-170.0 [facility] Comment on above: Performed By: #### I JACK ####[facility] [address] [place], [place] [address]JcStefania Barnhart LIPID PROFILEon 06-02-2022 CHOL-HDL RATIO NORM SEE BELOW Normal [facility] Comment on above: Result Comment: 3.3 - 4.4 LOW RISK 4.4 - 7.1 AVERAGE RISK 7.1 - 11.0 MODERATE RISK >11.0 HIGH RISK Performed By: #### L IPID, T7, TSH, BNP, CMP #### [facility] [address] [address] [address] Madison Barnhart Cholesterol [Mass/Vol] 238 mg/dL Critically high <=200 [facility] Comment on above: Performed By: #### L IPID, T7, TSH, BNP, CMP #### [facility] [address] [place], [place] [address] Dr. Madison Barnhart Cholesterol in HDL [Mass/Vol] 90 mg/dL Critically high 40-60 [facility] Comment on above: Performed By: #### L IPID, T7, TSH, BNP, CMP #### [facility] [address] [address] [address] Madison Barnhart Cholesterol in LDL [Mass/Vol] 132.4 mg/dL Normal [facility] Comment on above: Performed By: #### L IPID, T7, TSH, BNP, CMP #### [facility] [address] [address] [address] Madison Barnhart Cholesterol.total/Chol esterol in HDL [Mass ratio] 2.6 {ratio} Normal [facility] Comment on above: Performed By: #### L IPID, T7, TSH, BNP, CMP #### [facility] [address] [address] [address] Madison Barnhart HDL NORMAL > or = 60 mg/dl - LO W CARDIOVASCULAR RISK <40 mg/dl - HIGH CARDIOVASCULAR RISK Normal [facility] Comment on above: Performed By: #### L IPID, T7, TSH, BNP, CMP #### [facility] [address] [address] [address] Madison Barnhart LDL CALC NORMAL SEE BELOW Normal [facility] Comment on above: Result Comment: <100 mg/dl OPTIMAL 100 - 129 mg/dl NEAR OR ABOVE OPTIMAL 130 - 159 mg/dl BORDERLINE HIGH 160 - 189 mg/dl HIGH >190 mg/dl VERY HIGH Performed By: #### L IPID, T7, TSH, BNP, CMP #### [facility] Laboratory [address] [place] [address] Dr. Madison Barnhart Triglyceride [Mass/Vol] 78 mg/dL Normal <=150 [facility] Comment on above: Performed By: #### L IPID, T7, TSH, BNP, CMP #### [facility] [address] [place] [address] Dr. Madison Barnhart VLDL CALC 15.6 mg/dL Normal [facility] Comment on above: Performed By: #### L IPID, T7, TSH, BNP, CMP #### [facility] [address] [place] [address] Dr. Madison Barnhart PROF 14(COMP METB)on 022 Albumin [Mass/Vol] 3.5 g/dL Normal 3.4-5.0 [facility] Comment on above: Performed By: #### L IPID, T7, TSH, BNP, CMP #### [facility] [address] [place] [address] Dr. Madison Barnhart Albumin/Globulin [Mass ratio] 1.1 {ratio} Normal [facility] Comment on above: Performed By: #### L IPID, T7, TSH, BNP, CMP #### [facility] [address] [place] [address] Dr. Madison Barnhart ALP [Catalytic activity/Vol] 92 U/L Normal 46-116 [facility] Comment on above: Performed By: #### L IPID, T7, TSH, BNP, CMP #### [facility] [address] [place] [address] Dr. Madison Barnhart ALT [Catalytic activity/Vol] 28 U/L Normal 14-59 [facility] Comment on above: Performed By: #### L IPID, T7, TSH, BNP, CMP #### [facility] [address] [place] [address] Dr. Madison Barnhart Anion gap [Moles/Vol] 10.6 mmol/L Normal [facility] Comment on above: Performed By: #### L IPID, T7, TSH, BNP, CMP #### [facility] [address] [place] [address] Dr. Madison Barnhart AST [Catalytic activity/Vol] 17 U/L Normal 15-37 [facility] Comment on above: Performed By: #### L IPID, T7, TSH, BNP, CMP #### [facility] [address] [place] [address] Dr. Madison Barnhart Bilirubin [Mass/Vol] 0.5 mg/dL Normal 0.2-1.0 [facility] Comment on above: Performed By: #### L IPID, T7, TSH, BNP, CMP #### [facility] [address] [place] [address] Dr. Madison Barnhart Calcium [Mass/Vol] 8.4 mg/dL Critically low 8.5-10.1 [facility] Comment on above: Performed By: #### L IPID, T7, TSH, BNP, CMP #### [facility] [address] [place] [address] Dr. Madison Barnhart Chloride [Moles/Vol] 105 mmol/L Normal 98-107 [facility] Comment on above: Performed By: #### L IPID, T7, TSH, BNP, CMP #### [facility] [address] [place] [address] Dr. Madison Barnhart CO2 [Moles/Vol] 28.3 mmol/L Normal 21.0-32.0 [facility] Comment on above: Performed By: #### L IPID, T7, TSH, BNP, CMP #### [facility] [address] [place] [address] Dr. Madison Barnhart Creatinine [Mass/Vol] 1.08 mg/dL Critically high 0.55-1.02 [facility] Comment on above: Performed By: #### L IPID, T7, TSH, BNP, CMP #### [facility] [address] [address] [address] Madison Barnhart EGFR-AF GUATEMALAN >60 Normal >=60 [facility] Comment on above: Performed By: #### L IPID, T7, TSH, BNP, CMP #### [facility] [address] [place] [address] Dr. Madison Barnhart EGFR-NON AF GUATEMALAN 52 mL/min/1.73m2 Critically low >=60 [facility] Comment on above: Performed By: #### L IPID, T7, TSH, BNP, CMP #### [facility] [address] [place] [address] Dr. Madison Barnhart Globulin (S) [Mass/Vol] 3.3 g/dL Normal [facility] Comment on above: Performed By: #### L IPID, T7, TSH, BNP, CMP #### [facility] [address] [place] [address] Dr. Madison Barnhart Glucose [Mass/Vol] 99 mg/dL Normal 74-[address] [facility] Comment on above: Performed By: #### L IPID, T7, TSH, BNP, CMP #### [facility] [address] [place] [address] Dr. Madison Barnhart Potassium [Moles/Vol] 3.9 mmol/L Normal 3.5-5.1 [facility] Comment on above: Performed By: #### L IPID, T7, TSH, BNP, CMP #### [facility] [address] [place] [address] Dr. Madison Barnhart Protein [Mass/Vol] 6.8 g/dL Normal 6.4-8.[address] [facility] Comment on above: Performed By: #### L IPID, T7, TSH, BNP, CMP #### [facility] [address] [address] [address] Madison Barnhart Sodium [Moles/Vol] 140 mmol/L Normal 136-145 [facility] Comment on above: Performed By: #### L IPID, T7, TSH, BNP, CMP #### [facility] [address] [address] [address] Madison Barnhart Urea nitrogen [Mass/Vol] 22.0 mg/dL Critically high 7.0-18.0 [facility] Comment on above: Performed By: #### L IPID, T7, TSH, BNP, CMP #### [facility] [address] [address] [address] Madison Barnhart Urea nitrogen/Creatinine [Mass ratio] 20.4 mg/mg Normal [facility] Comment on above: Performed By: #### L IPID, T7, TSH, BNP, CMP #### [facility] [address] [address] [address] Madison Barnhart TSHon 06-02-2022 TSH 1.046 uIU/mL Normal 0.358-3.740 [facility] Comment on above: Performed By: #### L IPID, T7, TSH, BNP, CMP #### [facility] [address] [address] [address] Madison Barnhart Ambulatory Clinical Summaryo n 08-09-2020 Ambulatory Clinical Summary {[id number] Normal [facility] Coding Summary.on 10-27-2019 Coding Summary. CODING DATE: 10/27/2019 FINAL [facility] STATUS: Home (Routine DC) PAYOR: Ivana APC DESCRIPTION 5671 Level 1 Pathology ADMIT DX: REASON FOR VISIT DX: L91.8 Other hypertrophic disorders of the skin FINAL DX: PRINCIPAL: L91.8 Other hypertrophic disorders of the skin SECONDARY: PYMT PROC APC STAT DESCRIPTION DOCTOR NAME DATE NOTE: The code number assigned matches the documented diagnosis and / or procedure in the patient's chart. However, the narrative phrase printed from the coding software may appear abbreviated, or result in slightly different terminology. Coded By: Christa Marcus Date Saved: 10/27/2019 03:40 pm [facility] Vital Signs Date Time Vital Sign Value Performing Clinician Facility 08-16-2023 14:00-0400 Body height 172.72 cm Markell Odell Other [employer] Other 08-16-2023 14:00-0400 Body mass index (BMI) [Ratio] 25.39 kg/m2 Markell Odell Other [employer] Other 08-16-2023 14:00-0400 Body weight 75.75 kg Markell Odell Other [employer] Other 08-16-2023 14:00-0400 Diastolic blood pressure 78 mm[Hg] Markell Odell Other [employer] Other 08-16-2023 14:00-0400 Systolic blood pressure 138 mm[Hg] Markell Odell Other [employer] Other 07-09-2023 14:02-0400 Diastolic blood pressure 67 mm[Hg] MD Dede Michaels Work Phone: [facility] 07-09-2023 14:02-0400 Heart rate 55 /min MD Dede Michaels Work Phone: [facility] 07-09-2023 14:02-0400 Respiratory rate 16 /min MD Dede Michaels Work Phone: [facility] 07-09-2023 14:02-0400 SaO2% (BldA) [Mass fraction] 98 % MD Dede Michaels Work Phone: [facility] 07-09-2023 14:02-0400 Systolic blood pressure 128 mm[Hg] MD Dede Michaels Work Phone: [facility] 07-09-2023 12:16040 Body height 172.72 cm MD Dede Michaels Work Phone: [facility] 07-09-2023 12:16040 Body temperature 97.8 [degF] MD Dede Michaels Work Phone: [facility] 07-09-2023 12:16 Body weight 77.11 kg MD Dede Michaels Work Phone: [facility] Encounters Encounter Date Encounter Type Care Provider Facility Start: 08-20-2023 End: 08-20-2023 ambulatory Markell Odell Other [employer] Other Start: 08-20-2023 Telephone encounter [facility] Start: 08-16-2023 End: 08-16-2023 ambulatory Markell Odell Other [employer] Other Start: 08-16-2023 Office outpatient visit 15 minutes Markell Odell [facility] Start: 08-09-2023 End: 08-12-2023 ambulatory [facility] Start: 07-09-2023 End: 07-09-2023 ambulatory Oziel Whalen Facility:[facility] Start: 07-09-2023 End: 07-09-2023 Admission to same day surgery center MD Dede Michaels Work Phone: [facility] Work Phone: Start: 07-09-2023 End: 07-09-2023 ambulatory MD Dede Michaels Work Phone: [facility] Work Phone: Start: 06-25-2023 End: 06-25-2023 ambulatory [facility] Start: 06-07-2023 End: 06-07-2023 ambulatory [facility] Start: 04-29-2023 End: 04-29-2023 ambulatory PAYAL FRANCO . [facility] Work Phone: Start: 04-29-2023 End: 04-29-2023 Departed Referred MD Payal Franco Work Phone: [facility] Work Phone: Start: 06-11-2022 End: 06-12-[address] DEDE MICHAELS . Facility: Start: 06-02-2022 End: 06-03-[address] DEDE MICHAELS . Facility: Procedures Date Procedure Procedure Detail Performing Clinician Start: 07-09-2023 Esophagogastroduodenoscopy MD Dede Michaels Work Phone: Plan of Treatment Date Care Activity Detail Author Start: 07-09-2023 [facility] Patient Education Hiatal Hernia (DC) [facility] Work Phone: Payers Date Payer Category Payer Self-pay [id number] 2023 Unknown [id number] [facility] [id number] 1960 Unknown [id number] [id number] 1960 Unknown [id number] 1960 Unknown [id number] [id number] 1958 Unknown [id number] Unknown Ivana BC/BS [id number] Unknown [id number] Unknown [id number] [id number] Social History Date Type Detail Facility Tobacco smoking status NHIS Unknown if ever smoked [facility] Work Phone: Start: 1960 Sex Assigned At Female [facility] Start: 07-09-2023 Tobacco smoking status NHIS Never smoked tobacco (finding) [facility] Sex Assigned At Sex Assigned At Bir th [employer] Other Goals Date Patient Goal Desired Activity /State Clinical Notes 06-05-2022 to 08-20-2023 Note Date & Type Note Facility 08-20-2023 Evaluation note Encounter Date Diagnosis Assessment Notes Aug, Hiatal hernia (ICD-10 - K44.9) [employer] Other 09-15-2023 Evaluation note* Encounter Date Diagnosis Assessment Notes Treatment Notes Treatment Clinical Notes Aug, Hiatal hernia (ICD-10 - K44.9) Patient is taking 40 mg of Prilosec QD and will increase to BID Patient instructed on the proper use of PPI medications Patient reports that her symptoms are waking her at night that she make take on OTC Pepcid for break through symptoms Patient reports that she has a cough and it could be caused by reflux Patient is advised to raise the head of her bed at night RTO 3 months [employer] Other 09-08-2023 NotePatient here for 2 mo follow up. She started Eliquis. Metoprolol was decreased at last visit. She is doing well, denies chest pain and palpitations. Denies bleeding on Eliquis.[facility]09-08-2023 NoteCardiology Clinic Note Chief Complaint: follow up HPI: Liliana Vázquez is a 63 y.o. female with a past medical history including HTN and afib. Patient was intiially referred to Cardiology for an episode of chest pain. Stress test was performed, and although patient was noted to have ST depression on treadmill portion, she had no reversible ischemia on myocardial perfusion imaging. Echocardiogram was performed and was unremarkable. EF was normal. No significant valvular dysfunction was noted. Patient presents today for follow-up. Overall, she states that she is doing well. She states that she was recently diagnosed with a hiatal hernia, which she believes was causing her problems initially. She denies any anginal chest pain or shortness of breath. She denies any lower extremity edema, orthopnea, paroxysmal nocturnal dyspnea. Overall, she is very pleased with how she is doing. She is tolerating her anticoagulation for atrial fibrillation without any bleeding issues. She is accompanied today by her , who corroborates her story. Cardiology ROS: GENERAL: Denies fever, chills, night sweats, weight loss. HEENT: Denies changes in vision, photophobia, changes in hearing, epistaxis, oral bleeding. CARDIOVASCULAR: Denies chest pain, exertional dyspnea, orthopnea/PND, lower extremity edema, palpitations, lightheadedness/dizziness. RESPIRATORY: Denies SOB, coughing, wheezing GI: Denies abdominal pain, nausea/vomiting, heartburn, melena/hematochezia. RENAL: Denies dysuria, hematuria, flank pain. MSK: Denies muscle weakness/pain, arthralgias/joint pain. NEUROLOGIC: Denies LOC, weakness, numbness, headaches. SKIN: Denies abnormal rashes or bleeding. PSYCH: Denies significant anxiety, depression, sleep disturbances. Past Medical History She has a past medical history of Abnormal ECG, Arrhythmia, and Atrial fibrillation ([facility]). Surgical History She has no past surgical history on file. Social History She reports that she has never smoked. She has never used smokeless tobacco. She reports current alcohol use. No history on file for drug use. Family History Family History Problem Relation Name Age of Onset Stroke Mother Stroke Father Stroke Sister Medications Current Outpatient Medications on File Prior to Visit Medication Sig Dispense Refill albuterol 90 mcg/actuation inhaler INHALE 2 PUFFS INTO THE LUNGS EVERY 4 HOURS NEEDED FOR 30 DAYS cholecalciferol (D3-5) 5,000 Units tablet Take 1 tablet by mouth in the morning. FLUoxetine (PROzac) 20 mg capsule Take 1 tablet by mouth in the morning. methIMAzole (Tapazole) 5 mg tablet Take 1 tablet by mouth in the morning. metoprolol succinate XL (Toprol-XL) 25 mg 24 hr tablet Take 12.5 tablets by mouth in the morning. [DISCONTINUED] apixaban (Eliquis) 5 mg tablet Take 1 tablet (5 mg) by mouth in the morning and at bedtime. 60 tablet 11 aspirin 81 mg EC tablet Take 81 mg by mouth in the morning. No current facility-administered medications on file prior to visit. Allergies Patient has no known allergies. Physical Exam VITAL SIGNS: BP 136/85 (BP Location: Left arm, Patient Position: Sitting) Pulse 64 Ht 1.727 m (5' 8 ) Wt 74.4 kg (164 lb) SpO2 97% BMI 24.94 kg/m??? Constitutional: Well developed, Well nourished, No acute distress, Non-toxic appearance. HENT: Normocephalic, Atraumatic, Bilateral external ears have normal appearance, Nose appears normal, nares are patent. Eyes: PERRLA, EOMI, Conjunctiva normal, No discharge. Neck: Normal range of motion, No tenderness, Supple, No stridor. No cervical lymphadenopathy noted. Cardiovascular: Normal heart rate, Normal rhythm, No murmurs, No rubs, No gallops. Thorax & Lungs: Normal breath sounds, No respiratory distress, No wheezing, No chest tenderness to palpation. Abdomen: Bowel sounds normal, Soft, Nontender, No masses, No pulsatile masses. Skin: Warm, Dry, No erythema, No rash. Back: No tenderness, No CVA tenderness. Extremities: Intact distal pulses, No edema, No tenderness, No cyanosis, No clubbing. Musculoskeletal: Grossly normal strength in extremities Neurologic: Alert & oriented x 3, no gross focal neurological deficits Psychiatric: Affect normal, Judgment normal, Mood normal. Impression: -Chest pain, no ischemia on myocardial perfusion imaging, likely non cardiac -Afib with documented afib on event monitor -HTN, well controlled at home per patient report -Palpitations -Questionable TIA Plan: -Continue metoprolol and eliquis for atrial fibrillation. -Continue current antihypertensive medication regimen -Optimize medical management -Aggressive risk factor modification -Plan of care discussed with patient. All questions were answered. Patient voices understanding and is agreeable with current plan. -Patient was educated on red flag symptoms. Strict return precautions were provided. Patient verbalizes understanding (more content not included)... [facility] NotePatient here to discuss abnormal stress test. Had normal echo, and is still wearing 30 day event monitor.[facility]07-25-2023 Note Cardiology Clinic Note Chief Complaint: follow up HPI: Liliana Vázquez is a 63 y.o. female with a reported history of atrial fibrillation and HTN. Patient was referred to Cardiology for an episode of chest pain. Stress test was performed, and although patient was noted to have ST depression on treadmill portion, she had no reversible ischemia on myocardial perfusion imaging. Echocardiogram was performed and was unremarkable. EF was normal. No significant valvular dysfunction was noted. Patient presents today for follow-up. She states that she is doing well. She denies any cardiac complaints or concerns. She denies any recurrence of chest pain. She denies any lower extremity edema, orthopnea, paroxysmal nocturnal dyspnea. Overall, patient is doing well. Of note: Due to remote history of atrial fibrillation And no anticoagulation, decision was made to obtain 30-day event monitor. Patient was noted to have sustained atrial fibrillation on event monitor, and anticoagulation was started. Patient denies any bleeding complications. Cardiology ROS: GENERAL: Denies fever, chills, night sweats, weight loss. HEENT: Denies changes in vision, photophobia, changes in hearing, epistaxis, oral bleeding. CARDIOVASCULAR: Denies chest pain, exertional dyspnea, orthopnea/PND, lower extremity edema, palpitations, lightheadedness/dizziness. RESPIRATORY: Denies SOB, coughing, wheezing GI: Denies abdominal pain, nausea/vomiting, heartburn, melena/hematochezia. RENAL: Denies dysuria, hematuria, flank pain. MSK: Denies muscle weakness/pain, arthralgias/joint pain. NEUROLOGIC: Denies LOC, weakness, numbness, headaches. SKIN: Denies abnormal rashes or bleeding. PSYCH: Denies significant anxiety, depression, sleep disturbances. Past Medical History She has a past medical history of Abnormal ECG, Arrhythmia, and Atrial fibrillation ([facility]). Surgical History She has no past surgical history on file. Social History She has no history on file for tobacco use, alcohol use, and drug use. Family History No family history on file. Medications Current Outpatient Medications on File Prior to Visit Medication Sig Dispense Refill albuterol 90 mcg/actuation inhaler INHALE 2 PUFFS INTO THE LUNGS EVERY 4 HOURS NEEDED FOR 30 DAYS aspirin 81 mg EC tablet Take 81 mg by mouth in the morning. cholecalciferol (D3-5) 5,000 Units tablet Take 1 tablet by mouth in the morning. FLUoxetine (PROzac) 20 mg capsule Take 1 tablet by mouth in the morning. methIMAzole (Tapazole) 5 mg tablet Take 1 tablet by mouth in the morning. metoprolol succinate XL (Toprol-XL) 25 mg 24 hr tablet Take 1 tablet by mouth in the morning. No current facility-administered medications on file prior to visit. Allergies Patient has no known allergies. Physical Exam VITAL SIGNS: BP 139/77 (BP Location: Left arm, Patient Position: Sitting) Pulse 58 Ht 1.727 m (5' 8 ) Wt 76.7 kg (169 lb) SpO2 96% BMI 25.70 kg/m??? Constitutional: Well developed, Well nourished, No acute distress, Non-toxic appearance. HENT: Normocephalic, Atraumatic, Bilateral external ears have normal appearance, Nose appears normal, nares are patent. Eyes: PERRLA, EOMI, Conjunctiva normal, No discharge. Neck: Normal range of motion, No tenderness, Supple, No stridor. No cervical lymphadenopathy noted. Cardiovascular: Normal heart rate, Normal rhythm, No murmurs, No rubs, No gallops. Thorax & Lungs: Normal breath sounds, No respiratory distress, No wheezing, No chest tenderness to palpation. Abdomen: Bowel sounds normal, Soft, Nontender, No masses, No pulsatile masses. Skin: Warm, Dry, No erythema, No rash. Back: No tenderness, No CVA tenderness. Extremities: Intact distal pulses, No edema, No tenderness, No cyanosis, No clubbing. Musculoskeletal: Grossly normal strength in extremities Neurologic: Alert & oriented x 3, no gross focal neurological deficits Psychiatric: Affect normal, Judgment normal, Mood normal. Impression: -Chest pain, no ischemia on myocardial perfusion imaging -Afib with documented afib on event monitor -HTN, well controlled at home per patient report -Palpitations -Questionable TIA Plan: -Patient presents to cardiology with atypical chest pain. Perfusion imaging did not demonstrate any reversible ischemia. She has not had recurrence of chest pain. No further ischemic evaluation indicated at this time. -Patient has documented history of A-fib. She was previously not anticoagulated because of low [id number] score. However, after further review of her chart, it appears that Years ago, she had an episode that was concerning for CVA versus TIA. MRI did not demonstrate definite evidence of infarct. As such, her [id number] score is actually 4. I discussed with patient need for anticoagulation. She preferred to proceed with 30-day event monitor. Patient has not had a documented atrial fibrillation on ai (more content not included)...[facility]07-07-2023 NoteCardiology Clinic Note Chief Complaint: new patient for chest pain HPI: Liliana Vázquez is a 63 y.o. female with a reported history of atrial fibrillation and HTN. Patient was recently evaluated in the emergency department after presenting with an episode of substernal chest pain. Work-up was reportedly unremarkable. Patient was asked to follow-up with cardiology to establish care. Today, patient states that she feels well overall. She has not had any recurrence of chest pain. She denies any lower extremity edema, orthopnea, or paroxysmal nocturnal dyspnea. She denies any near-syncope or syncope. Of note: Patient has a reported history of atrial fibrillation. He also has a documented episode where there was question of TIA versus CVA. MRI brain did not demonstrate evidence of CVA. As such, patient was not anticoagulated. Cardiology ROS: GENERAL: Denies fever, chills, night sweats, weight loss. HEENT: Denies changes in vision, photophobia, changes in hearing, epistaxis, oral bleeding. CARDIOVASCULAR: Denies chest pain, exertional dyspnea, orthopnea/PND, lower extremity edema, palpitations, lightheadedness/dizziness. RESPIRATORY: Denies SOB, coughing, wheezing GI: Denies abdominal pain, nausea/vomiting, heartburn, melena/hematochezia. RENAL: Denies dysuria, hematuria, flank pain. MSK: Denies muscle weakness/pain, arthralgias/joint pain. NEUROLOGIC: Denies LOC, weakness, numbness, headaches. SKIN: Denies abnormal rashes or bleeding. PSYCH: Denies significant anxiety, depression, sleep disturbances. Past Medical History She has a past medical history of Abnormal ECG, Arrhythmia, and Atrial fibrillation ([facility]). Surgical History She has no past surgical history on file. Social History She has no history on file for tobacco use, alcohol use, and drug use. Family History No family history on file. Medications Current Outpatient Medications on File Prior to Visit Medication Sig Dispense Refill albuterol 90 mcg/actuation inhaler INHALE 2 PUFFS INTO THE LUNGS EVERY 4 HOURS NEEDED FOR 30 DAYS aspirin 81 mg EC tablet Take 81 mg by mouth in the morning. cholecalciferol (D3-5) 5,000 Units tablet Take 1 tablet by mouth in the morning. FLUoxetine (PROzac) 20 mg capsule Take 1 tablet by mouth in the morning. methIMAzole (Tapazole) 5 mg tablet Take 1 tablet by mouth in the morning. metoprolol succinate XL (Toprol-XL) 25 mg 24 hr tablet Take 1 tablet by mouth in the morning. No current facility-administered medications on file prior to visit. Allergies Patient has no known allergies. Physical Exam VITAL SIGNS: BP 134/82 (BP Location: Left arm, Patient Position: Sitting) Pulse 62 Ht 1.727 m (5' 8 ) Wt 77.6 kg (171 lb) SpO2 98% BMI 26.00 kg/m??? Constitutional: Well developed, Well nourished, No acute distress, Non-toxic appearance. HENT: Normocephalic, Atraumatic, Bilateral external ears have normal appearance, Nose appears normal, nares are patent. Eyes: PERRLA, EOMI, Conjunctiva normal, No discharge. Neck: Normal range of motion, No tenderness, Supple, No stridor. No cervical lymphadenopathy noted. Cardiovascular: Normal heart rate, Normal rhythm, No murmurs, No rubs, No gallops. Thorax & Lungs: Normal breath sounds, No respiratory distress, No wheezing, No chest tenderness to palpation. Abdomen: Bowel sounds normal, Soft, Nontender, No masses, No pulsatile masses. Skin: Warm, Dry, No erythema, No rash. Back: No tenderness, No CVA tenderness. Extremities: Intact distal pulses, No edema, No tenderness, No cyanosis, No clubbing. Musculoskeletal: Grossly normal strength in extremities Neurologic: Alert & oriented x 3, no gross focal neurological deficits Psychiatric: Affect normal, Judgment normal, Mood normal. Impression: -Chest pain -Afib -HTN -Palpitations -Questionable TIA Plan: -Patient is atypical in nature, but does have some concerning features. As such, we will pursue further ischemic evaluation. Will order stress test. Additionally, will order echocardiogram to assess LVEF, wall motion. -Patient has documented history of A-fib. She was previously not anticoagulated because of low NCZ0OS5-QVMo score. However, after further review of her chart, it appears that Years ago, she had an episode that was concerning for CVA versus TIA. MRI did not demonstrate definite evidence of infarct. As such, her [id number] score is actually 4. I discussed with patient need for anticoagulation. At this time, she declines. She understands the risk of CVA. -We will order 30-day event monitor to assess A-fib burden discussed anticoagulation after that information -Continue daily aspirin, metoprolol in the meantime -Optimize medical management -Aggressive risk factor modification -Plan of care discussed with patient. All questions were answered. Patient voices understanding and is agreeable with current plan. -Patient was educat (more content not included)...[facility]07-07-2023 NoteNew patient here to re-establish care. She recently presented to [facility] ED for chest pressure and SOB. She was treated for bronchitis at that time. SUMMERS and palpitations have been worsening lately. Review of Systems Cardiovascular: Positive for chest pain (pressure type), dyspnea on exertion and palpitations. All other systems reviewed and are negative.[facility] 06-05-2022 NoteEXAMINATION: CTA CHEST WO W CON HISTORY: COVID-19 , persistent dyspnea COMPARISON: No relevant comparison available. TECHNIQUE: Multi-planar CT images were created with IV contrast. Axial, Coronal, and Sagittal images. Dose reduction techniques were achieved by using automated exposure control and/or adjustment of mA and/or kV according to patient size and/or use of iterative reconstruction technique. 3-D reconstruction was performed on a separate workstation. FINDINGS: VASCULATURE: No pulmonary embolism or abnormal opacity. LUNGS: No visible pulmonary disease. PLEURA: No mass, effusion, or pneumothorax. KELLY: No mass or adenopathy. MEDIASTINUM: No mass or adenopathy. CARDIAC: No enlargement, pericardial effusion, or pericardial thickening. AORTA: No aneurysm or dissection. CHEST WALL: No mass or axillary adenopathy. BONES: No bone lesion or fracture. LIMITED ABDOMEN: No suspicious findings. Limited images of the upper abdomen. OTHER: Negative. IMPRESSION: 1. No pulmonary embolism. 2. No pulmonary infiltrates or significant chronic interstitial changes. Electronically authenticated by: ANDREW RODRIGUEZ Date: 2022-06-05 07:54[facility]Evaluation noteNo assessment information availableUc Health Ctr Work Phone: History and physical note Author Oziel Whalen [facility] July 09, 2023 1:21pm Note Date/Time July 09, 2023 1:2 1pm [facility] [address] [place] [address] Gastroenterology H&P Signed Patient: Liliana Vázquez MR# : [id number] : 1960 Acct:[id number] Age/Sex: 63 / F Adm Date: 3 Loc: Room: Type: [facility] Attending Dr: Oziel Whalen MD Copies to: MD Dede Ovalles MD~ Date of Service: 07/09/2023 HISTORY & PHYSICAL: Patient's history with special attention to the cardiovascular, pulmonary systems and the current problem was reviewed with the patient immediately prior to the procedure. Present medications and doses reviewed in the EMR. Allergies and pertinent laboratory tests were also reviewedat this time in the EMR. The physical examination, as below, was then performed. Indication, assessment and HPI: 63-year-old female presents for EGD to evaluate dysphagia, GERD which is well-controlled on omeprazole 20 mg daily Family history of GI malignancy? No PHYSICAL EXAMINATION Mouth and Pharynx : Moist mucus membranes, normal dentition Cardiac: Regular rate, regular rhythm Pulmonary: Clear to auscultation bilaterally, no wheezing Neurological: Alert and oriented x3, no focal deficits noted Abdomen: Abdomen soft, non-tender REVIEW OF SYSTEMS Constitutional: Denies malaise, fevers Cardiovascular: Denies chest pain, palpitations Respiratory: Denies shortness of breath, wheezing Gastrointestinal: Per HPI Genitourinary: Denies dysuria, polyuria Musculoskeletal: Denies joint swelling, joint stiffness Neurological: Denies numbness, tingling Integumentary: Denies rashes, skin lesions Endocrine: Denies fatigue, weight loss Written informed consent obtained from the patient. Risks (including but not limited to perforation, infection, bloating, bleeding, need for emergent surgeryand loss of life), benefits and alternatives explained and questions answered. The patient verbalized understanding. Based on history patient is an appropriate candidate for the procedure. Oziel Whalen MD Documented By: Oziel Whalen MD 07/09/23 1320 Signed By: <Electronically signed by Oziel Whalen MD> 07/09/23 1321 [facility] Work Phone: History general Narrative - Reported* Type Description Date Medical History Hyperthyroidism Medical History high blood pressure Medical History Atrial fibrillation [employer] Other Hospital Discharge instructions Additional Instructions DISCHARGE INSTRUCTIONS FOR UPPER ENDOSCOPY WHAT TO EXPECT: - You may feel full, gassy or cramping after your procedure. In some cases, this may be from a few hours to a day. Walking may help relieve the discomfort. - Your throat may feel sore today from the scope that the doctor passed through your throat to visualize your stomach. Take a throat lozenge or suck on ice to ease the discomfort. - You may notice some streaks of blood in your sputum if the doctor has taken a biopsy. - You should begin to recover from anesthesia within 1 hour of the procedure, however may feel groggy for the next 24 hours. DO's AND DON'Ts: - Call your doctor right away if you have a hard abdomen, severe pain, vomiting or if you cough up large amounts of blood. - Call your doctor if you develop any rashes, hives or difficulty breathing. - If you take 81 mg aspirin for your heart it is safe to resume this medication. - If you take other blood thinner medications your doctor will instruct you when these can safely be resumed. - Do NOT drive for 24 hours. - Do NOT operate machinery such as power tools, [place] [employer] mowers, [employer]ink[employer]ers, sewing machines, etc. for 24 hours. - Avoid alcoholic beverages and drugs for allergies, nerves, or sleep. - Do NOT stay alone. Do NOT leave your child unattended. - Do NOT make important personal or business decisions or sign any legal documents. - Eat solid foods and drink liquids in smaller amounts than usual until normal appetite returns. If you should experience an upset stomach, liquids high in sugar content (soda, Jatinder-Aid, non-acid juices) are recommended. - Do NOT smoke. - Do take it easy today. You need not stay in bed, but avoid strenuous activities such as jogging or working out. FOLLOW UP & RECOMMENDATIONS: -The GI office will make you a follow-up appointment to discuss your biopsy results -Continue your omeprazole 40 mg once daily -You can restart your Eliquis tomorrow -Notify the doctor if you have any problems. -Follow up with PCP. -Office number [phone].[facility] Work Phone: Summary Purpose Family History Relationship Condition Age at Onset Recorded Date/T stefan Not Specified Chronic obstructive pulmonary disease Un known father Hypertension Unknown Malignant neoplasm of prostate Unknown brother Malignant neoplasm of lung Unknown Advance Directives Advance Directive Response Recorded Date/ Time Advance Directives No December 27, 2017 4:31pm Chief Complaint and Reason for Visit Chief Complaint Shortness of Breath Gastroesophagitis w/o Reflux Disease, Gastritis Additional Source Comments INFORMATION SOURCE (unrecogn ized section and content) DATE CREATED AUTHOR 08/08/2020 [facility] DATE CREATED AUTHOR AUTHOR'S ORGANIZ ATION 05/11/2023 [facility] DATE CREATED AUTHOR AUTHOR'S ORGANIZ ATION 07/14/2023 [facility] DATE CREATED AUTHOR AUTHOR'S ORGANIZ ATION 08/19/2023 [facility] Care Teams (unrecognized sec tion and content) Team Status: Inactive Member Role Status Delon Franco MD Attending Provider Active Team Status: Active Member Role Status Delon Michaels MD Primary Care Provider Active Team Status: Inactive Member Role Status Dates Payal Franco MD Attending Provider Active Dede Michaels MD Primary Care Provider Active Team Status: Inactive Member Role Status Dates Dede Michaels MD Primary Care Provider Active Oziel Whalen MD Attending Provider Active Goals (unrecognized section and content) Goals may be documented in a n alternate sectionNo InformationNo Information REASON FOR VISIT (unrecogniz ed section and content) Patient is here for a follow up for EGD, continue PPImeds FOR RECORDS PERTAINING TO PATIENTS WHO ARE OR HAVE BEEN ENROLLED IN A CHEMICAL DEPENDENCY/SUBSTANCEABUSE PROGRAM, SOME INFORMATION MAY BE OMITTED. This clinical summary was aggregated from multiple sources. Caution should be exercised in using it in the provision of clinical care. This summary normalizes information from multiple sources, and as a consequence, information in this document may materially change the coding, format and clinical context of patient data. In addition, data may be omitted in some cases. CLINICAL DECISIONS SHOULD BE BASED ON THE PRIMARY CLINICAL RECORDS. [facility] [employer] [facility]. provides no warranty or guarantee of the accuracy or completeness of information in this document.
[2023-11-30 14:28] LABS: Free T3 2.23 pg/mL (2.18-3.98); TSH W/ REFLEX FT4 1.603 (0.358-3.740)
== END 2023-11-30 12:41 | disposition home or self-care (01) ==
LOC: LAB 12:43
PROVIDERS: PCP Family Medicine
DX: E89.0 Postprocedural hypothyroidism (principal); E05.90 Thyrotoxicosis, unspecified without thyrotoxic crisis or storm
CPT/HCPCS: 36415; 84443; 84481

== ENCOUNTER 2023-11-30 12:40 | Outpatient (OUT) | payer OTHER, SELFPAY ==
--- OUTSIDE RECORDS SUMMARY | 2023-12-05 15:47 | XMS_ITS | CCD ---
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 Name Role Phone MD Payal Franco Attending Provider [phone] DIAB ., PAYAL Admitting Unavailable DIAB ., [...] Unavailable MD Dede Michaels Primary Care Provider [phone] MD Oziel Whalen Attending Provider Oziel Whalen Admitting Unavailable Oziel Whalen Attending Unavailable Dede Michaels Primary Care Unavailable Diab, Payal A Admitting Unavailable Diab, Payal A Attending Unavailable Dede Michaels Primary Care Unavailable Markell Odell Unavailable ANGELLA JI Attending Unavailable ANGELLA JI Attending Unavailable ANGELLA JI Attending Unavailable Allergies Allergy Classification Reported Allergen(s) Allergy Type Date of Onset Reaction(s) Facility (1 source) bee venom Drug allergy (disorder) [facility] Repository (2 sources) venom-honey bee; Translations: [venom-honey bee] Allergy to substance 07-08-20 Anaphylaxis [facility] (2 sources) Sulfamethoxazole / Trimethoprim Drug Allergy upset stomach [employer] Other Medications Current Medications Medication Drug Class(es) Dates Sig (Normalized) Sig (Original) [id number] 200 actuat albuterol 0.09 mg/actuat metered dose [...] 06-13-2022 Chronic Other aftercare (1 source) Other nursing home (current) drug therapy; Translations: [OTH LICENSED AND CERTIFIED MIDWIFE CURRENT DRUG THERAPY] Onset: 04-30-2023 Episodic Other [...] Range Facility Office Visiton 08-09-2023 Follow-up visit [id number] Liliana Vázquez 1960 F Date Provider Department Center 08/09/2023 3848-ANGELLA JI CARD [facility] Family History Problem Relation Age of Onset Stroke Mother Stroke Father Stroke Sister Family Status - Relation Status Age at Mother Father Sister Level of Service:45822 [facility] OFFICE/OUTPATIENT ESTABLISHED MOD MDM 30-39 MIN Normal [facility] Neeraj 07-09-2023 L - -------- Specimen: [id number] Received: 07/09/23 Status: MITCHELL Elina Num: [id number] Spec Type: Surgical Subm Dr: Oziel Whalen MD Tissues: A Esophagus Biopsy (ESOPHAGUS BX) Procedures: HE/Ivelisse, Gross/Micro L4 -------- Age/ Patient Sex Location Account Attending Physician -------- Liliana Vázquez 63/F [id number] Oziel Wahlen MD -------- SPEC NUM: [id number] RECD: 07/09/23 STATUS: MITCHELL ANTOINE NUM: [id number] RUSTY: 07/09/23- [facility] DR: Oziel Whalen MD ENTERED: 07/09/[address] [facility] DR: SPEC TYPE: Surgical DEPT: S ORDERED: [...] microscopic examination confirms the diagnosis. -------- Specimen: [id number] Received: 07/09/23 Status: MITCHELL Antoine Num: [id number] Spec Type: Surgical Subm Dr: Oziel Whalen MD Tissues: A Esophagus Biopsy (ESOPHAGUS BX) Procedures: Caleb MARTIN -------- Patient: Liliana Vázquez [id number] (Continued) -------- Specimen: [id number] Received: 07/09/23 (Continued) Signed (signature on file) Jaylen Sauceda MD 07/11/23 1157 -------- Specimen: [id number] Received: 07/09/23 Status: MITCHELL Antoine Num: [id number] Spec Type: Surgical Subm Dr: Oziel Whalen MD Tissues: A Esophagus Biopsy (ESOPHAGUS BX) Procedures: Michael MARTIN/Felton L4 -------- Patient: Liliana Vázquez [id number] (Continued) -------- Specimen: [id number] Received: 07/09/23 (Continued) CPT Codes 50655 -------- -------- Specimen: [id number] Received: 07/09/23 Status: MITCHELL Antoine Num: [id number] Spec Type: Surgical Subm Dr: Oziel Whalen MD Tissues: A Esophagus Biopsy (ESOPHAGUS BX) Procedures: HE/2, Gross/Micro L4 -------- Patient: Liliana Vázquez [id number] (Continued) -------- Signed (signature on file) Jaylen Sauceda MD 07/11/23 1157 [facility] 36on 07-02-2023 36 Patient's event monitor showed 19 mins of afib this morning. Strip was emailed to Dr. Ji who recommended she start Eliquis 5mg bid. I then spoke with patient who agreed to start it. Rx was sent to her pharmacy. [facility] Office Visiton 06-25-2023 Follow-up visit [id number] GurpreetLiliana S 1960 F Date Provider Department Center [facility]2023 [facility] No family history on file Level of Service:49269 [place] OFFICE/OUTPATIENT ESTABLISHED MOD MDM 30-39 MIN [facility] Office Visiton 06-07-2023 Follow-up visit [id number] Liliana Vázquez 1960 F Date Provider Department Center 06/07/2023 ANGELLA GRIER ROMA [facility] No family history on file Level of Service:04026 [facility] OFFICE/OUTPATIENT NEW MODERATE MDM 45-59 MINUTES [facility] BNPon 04-29-2023 Natriuretic peptide B (Bld) [Mass/Vol] 181.0 pg/mL Normal <=900.0 [facility] Comment on above: Performed By: #### B PASSPORT SUPPORT ASSOCIATE, CMP, CMADM ####[facility] [address] [place] [address]DrStefania Barnhart CARDIAC NAVA ADMITon 05-29-2 023 CK [Catalytic activity/Vol] 78 U/L Normal 26-192 [facility] Comment on above: Performed By: #### B PASSPORT SUPPORT ASSOCIATE, CMP, CMADM ####[facility] [address] [place] [address]Dr. Madison Barnhart CK.MB [Mass/Vol] ng/mL Normal <=3.60 [facility] Comment on above: Performed By: #### B PASSPORT SUPPORT ASSOCIATE, CMP, CMADM ####[facility] [address] [place] [address]Dr. Madison Barnhart HSTROP 5.2 pg/mL Normal 4.0-51.3 [facility] Comment on above: Result Comment: CUT- OFF POINTS HAVE BEEN ESTABLISHED BASED ON THE FOURTH UNIVERSAL DEFINITIONS OF MYOCARDIAL INFARCTION. THE UPPER REFERENCE LIMIT (URL) OF TROPONIN, DEFINED THE 99TH PERCENTILE OF cTnI DISTRIBUTION IN A REFERENCE POPULATION, HAS BEEN CONFIRMED THE DECISION THRESHOLD FOR ME DIAGNOSIS. Performed By: #### B PASSPORT SUPPORT ASSOCIATE, CMP, CMADM ####[facility] [address]sts[address] [place] [address]Dr. Madison Barnhart KG 72 ng/mL Normal 9-82 [facility] Comment on above: Performed By: #### B PASSPORT SUPPORT ASSOCIATE, CMP, CMADM ####[facility] F[address]uc[address] [place], [place] [address]Dr. Madison Barnhart CBC AUTO DIFFon 04-29-2023 BASO # 0.0 103/ul Normal 0.0-0.1 [facility] Comment on above: Performed By: #### C BC ####[facility] [address] [place] [address]Dr. Madison Barnhart Basophils/100 WBC (Bld) 0.3 % Normal 0.2-2.0 [facility] Comment on above: Performed By: #### C BC ####[facility] [address] [place], [place] [address]DrStefania Barnhart EO # 0.1 103/ul Normal 0.0-0.7 [facility] Comment on above: Performed By: #### C BC ####[facility] R[address]zt[address] [place], [place] [address]DrStefania Barnhart Eosinophils/100 WBC (Bld) 2.2 % Normal 0.9-7.0 [facility] Comment on above: Performed By: #### C BC ####[facility] [address] [place] [address]Dr. Madison Barnhart Erythrocyte distribution width (RBC) [Ratio] 13.1 % Normal 11.0-15.0 [facility] Comment on above: Performed By: #### C BC ####[facility] Mvqrh[address]mx[address] [place], [place] [address]Dr. Madison Barnhart Hematocrit (Bld) [Volume fraction] 42.1 % Normal 36.0-48.0 [facility] Comment on above: Performed By: #### C BC ####[facility] Vuamzeihxc[address] [place], [place] [address]Dr. Madison Barnhart Hemoglobin (Bld) [Mass/Vol] 13.9 g/dL Normal 12.0-16.0 [facility] Comment on above: Performed By: #### C BC ####[facility] Qlckfwcnju[address] [place], [place] [address]Dr. Madison Barnhart IG # 0.04 10e3/ul Critically high 0.00-0.03 [facility] Comment on above: Performed By: #### C BC ####[facility] Frfmhawtou[address] [place], [place] [address]Dr. Madison Barnhart IG % 0.7 % Critically high 0.0-0.5 [facility] Comment on above: Performed By: #### C BC ####[facility] Shpsetuuab[address] [place], [place] [address]Dr. Madison Barnhart LYMPH # 0.5 103/ul Critically low 1.2-3.8 [facility] Comment on above: Performed By: #### C BC ####[facility] Kqgipvilvm[address] [place], [place] [address]Dr. Madison Barnhart Lymphocytes/100 WBC (Bld) 7.9 % Critically low 20.5-60.0 [facility] Comment on above: Performed By: #### C BC ####[facility] [address] [place] [address]Dr. Madison Barnhart MANUAL DIFF REQ NO Normal [facility] Comment on above: Performed By: #### C BC ####[facility] [address] [place] [address]Dr. Madison Barnhart MCH (RBC) [Entitic mass] 30.7 pg Normal 26.7-34.0 [facility] Comment on above: Performed By: #### C BC ####[facility] [address] [place] [address]Dr. Madison Barnhart MCHC (RBC) [Mass/Vol] 33.0 g/dL Normal 29.9-35.2 [facility] Comment on above: Performed By: #### C BC ####[facility] Xserpwgilx[address] [place], [place] [address]Dr. Madison Obey MCV (RBC) [Entitic vol] 92.9 fL Normal 81.0-99.0 [facility] Comment on above: Performed By: #### C BC ####[facility] Vvzj[address]zg[address] [place], [place] [address]Dr. Madison Obey MONO # 0.8 103/ul Normal 0.3-0.8 [facility] Comment on above: Performed By: #### C BC ####[facility] [address] [place] [address]Dr. Lamarhilario Barnhart Monocytes/100 WBC (Bld) 13.1 % Critically high 1.7-12.0 [facility] Comment on above: Performed By: #### C BC ####[facility] [address] [place] [address]Dr. Madison Obey NEUT # 4.6 103/ul Normal 1.4-6.5 [facility] Comment on above: Performed By: #### C BC ####[facility] [address] [place], [place] [address]Dr. Madison Obey Neutrophils/100 WBC (Bld) 75.8 % Critically high 43.0-75.0 [facility] Comment on above: Performed By: #### C BC ####[facility] [address] [place], [place] [address]Xe. Madison Barnhart Platelet mean volume (Bld) [Entitic vol] 9.4 fL Critically low 9.5-13.5 [facility] Comment on above: Performed By: #### C BC ####[facility] [address]oxi[address] [place], [place] [address]Le. Madison Barnhart PLT 237 103/ul Normal 150-450 [facility] Comment on above: Performed By: #### C BC ####[facility] [address]iesx[address] [place], [place] [address]Fg. Madison Barnhart RBC 4.53 106/ul Normal 4.20-5.40 [facility] Comment on above: Performed By: #### C BC ####[facility] [address]av[address]opm[address] [place], [place] [address]Sg. Madison Barnhart WBC 6.0 103/ul Normal 4.0-11.0 [facility] Comment on above: Performed By: #### C BC ####[facility] Jed[address]oeosa[address] [place], [place] [address]F[address] CHEST W CONon 04-29-2023 [...] by: TL UNLU Date: 2023-04-29 14:57 Normal [facility] D-Dimer High Sensitivityon 0 04-29-2023 D-Dimer High Sensitivity < 200 Normal 0-243 [facility] Comment on above: Result Comment: The [...] patients due to co-morbid conditions. PERFORMED BY: [place] [address] PATHOLOGIST [employer]FT SH[employer] DANCER HOWIE BARKER M.D. Performed By: #### D DIMER #### [address] No Panel InformationOrdered By: Payal Franco on 04-29-2023 D-Dimer Quantitative (PE/DVT) < 200 ng/mL 0-243 [facility] Comment on above: The reference range [...] [Mass/Vol] 3.2 g/dL Critically low 3.4-5.0 [facility] Comment on above: Performed By: #### B PASSPORT SUPPORT ASSOCIATE, CMP, CMADM ####[facility] [address] [place] [address]Dr. Madison Obey Albumin/Globulin [Mass ratio] 1.1 {ratio} Normal [facility] Comment on above: Performed By: #### B PASSPORT SUPPORT ASSOCIATE, CMP, CMADM ####[facility] [address] [place] [address]Dr. Madison Barnhart ALP [Catalytic activity/Vol] 119 U/L Critically high 46-116 [facility] Comment on above: Performed By: #### B PASSPORT SUPPORT ASSOCIATE, CMP, CMADM ####[facility] [address] [place] [address]Dr. Madison Barnhart ALT [Catalytic activity/Vol] 32 U/L Normal 14-59 [facility] Comment on above: Performed By: #### B PASSPORT SUPPORT ASSOCIATE, CMP, CMADM ####[facility] [address] [place] [address]Dr. Madison Barnhart Anion gap [Moles/Vol] 10.4 mmol/L Normal [facility] Comment on above: Performed By: #### B PASSPORT SUPPORT ASSOCIATE, CMP, CMADM ####[facility] [address] [place] [address]Dr. Madison Barnhart AST [Catalytic activity/Vol] 21 U/L Normal 15-37 [facility] Comment on above: Performed By: #### B PASSPORT SUPPORT ASSOCIATE, CMP, CMADM ####[facility] [address] [place] [address]Dr. Madison Barnhart Bilirubin [Mass/Vol] 0.6 mg/dL Normal 0.2-1.0 [facility] Comment on above: Performed By: #### B PASSPORT SUPPORT ASSOCIATE, CMP, CMADM ####[facility] [address] [place] [address]Dr. Madison Barnhart Calcium [Mass/Vol] 8.2 mg/dL Critically low 8.5-10.1 [facility] Comment on above: Performed By: #### B PASSPORT SUPPORT ASSOCIATE, CMP, CMADM ####[facility] [address] [place] [address]Dr. Madison Barnhart Chloride [Moles/Vol] 107 mmol/L Normal 98-107 [facility] Comment on above: Performed By: #### B PASSPORT SUPPORT ASSOCIATE, CMP, CMADM ####[facility] [address]yr[address] [place] [address]Dr. Madison Barnhart CO2 [Moles/Vol] 27.7 mmol/L Normal 21.0-32.0 [facility] Comment on above: Performed By: #### B PASSPORT SUPPORT ASSOCIATE, CMP, CMADM ####[facility] [address]mkmg[address] [place] [address]Dr. Madison Barnhart Creatinine [Mass/Vol] 1.19 mg/dL Critically high 0.55-1.02 [facility] Comment on above: Performed By: #### B PASSPORT SUPPORT ASSOCIATE, CMP, CMADM ####[facility] [address]bv[address] [place] [address]Dr. Madison Barnhart EGFR-AF MICRONESIAN 56 mL/min/1.73m2 Critically low >=60 [facility] Comment on above: Performed By: #### B PASSPORT SUPPORT ASSOCIATE, CMP, CMADM ####[facility] [address] [place] [address]Dr. Madison Barnhart EGFR-NON AF MICRONESIAN 46 mL/min/1.73m2 Critically low >=60 [facility] Comment on above: Performed By: #### B PASSPORT SUPPORT ASSOCIATE, CMP, CMADM ####[facility] [address]pay[address] [place] [address]Dr. Madison Barnhart Globulin (S) [Mass/Vol] 3.0 g/dL Normal [facility] Comment on above: Performed By: #### B PASSPORT SUPPORT ASSOCIATE, CMP, CMADM ####[facility] [address] [place] [address]Dr. Madison Barnhart Glucose [Mass/Vol] 122 mg/dL Critically high 74-106 [facility] Comment on above: Performed By: #### B PASSPORT SUPPORT ASSOCIATE, CMP, CMADM ####[facility] [address]ct[address] [place] [address]Dr. Madison Barnhart Potassium [Moles/Vol] 4.1 mmol/L Normal 3.5-5.1 [facility] Comment on above: Performed By: #### B PASSPORT SUPPORT ASSOCIATE, CMP, CMADM ####[facility] [address] [place] [id number]. Madison Barnhart Protein [Mass/Vol] 6.2 g/dL Critically low 6.4-8.2 [facility] Comment on above: Performed By: #### B PASSPORT SUPPORT ASSOCIATE, CMP, CMADM ####[facility] X[address]dvbwwip[address] [place] [address]Dr. Madison Barnhart Sodium [Moles/Vol] 141 mmol/L Normal 136-145 [facility] Comment on above: Performed By: #### B PASSPORT SUPPORT ASSOCIATE, CMP, CMADM ####[facility] [address]aju[address] [place] [address]Dr. Madison Barnhart Urea nitrogen [Mass/Vol] 16.0 mg/dL Normal 7.0-18.0 [facility] Comment on above: Performed By: #### B PASSPORT SUPPORT ASSOCIATE, CMP, CMADM ####[facility] [address]qoxlbbsy[address] [place] [address]Dr. Madison Barnhart Urea nitrogen/Creatinine [Mass ratio] 13.4 mg/mg Normal [facility] Comment on above: Performed By: #### B PASSPORT SUPPORT ASSOCIATE, CMP, CMADM ####[facility] [address] [place] [address]Dr. Madison Barnhart TROPONIN, HIGH SENSITIVITYon 04-29-2023 HSTROP 5.2 pg/mL Normal 4.0-51.3 [facility] Comment on above: Result Comment: CUT- OFF POINTS HAVE BEEN ESTABLISHED BASED ON THE FOURTH UNIVERSAL DEFINITIONS OF MYOCARDIAL INFARCTION. THE UPPER REFERENCE LIMIT (URL) OF TROPONIN, DEFINED THE 99TH PERCENTILE OF cTnI DISTRIBUTION IN A REFERENCE POPULATION, HAS BEEN CONFIRMED THE DECISION THRESHOLD FOR ME DIAGNOSIS. Performed By: #### H STROPN #### [facility] [address] [place] [address] [address] Madison Barnhart XR CHEST 1 Von [...] by: LEEROY VILLA Date: 2023-04-29 11:45 Normal [facility] CREATININE CLEARon 2 CREA CLEARANCE 79.62 ml/min Normal 75.00-115.00 [facility] Comment on above: Result Comment: Prev iously reported as: 1.74 On 06/11/2022 10:36 By [email or web address] Performed By: #### C REACL #### [facility] [address] [place] [address] Dr. Madison Barnhart CREA, 24 HR UR 1359.90 mg/24 hr Normal 800.00-1, 800. 00 [facility] Comment on above: Performed By: #### C REACL #### [facility] [address] [place] [address] Dr. Madison Barnhart Creatinine [Mass/Vol] 1.08 mg/dL Critically high 0.55-1.02 [facility] Comment on above: Result Comment: repe ated Previously reported as: 49.42 On 06/11/2022 10:36 By [email or web address] Performed By: #### C REACL #### [facility] [address] [place] [address] Dr. Madison Barnhart UR TOT VOL 3000 ml/24 HR Normal [facility] Comment on above: Performed By: #### C REACL #### [facility] [address] [place] [address] Dr. Madison Barnhart URINE CREAT 45.33 mg/dL Normal 20.00-300.00 [facility] Comment on above: Performed By: #### C REACL #### [facility] [address] [place] [address] Dr. Madison Barnhart ECHOCARDIO M/2D COMPLETEon 0 06-11-2022 ECHOCARDIO M/2D COMPLETE Patient: LILIANA VÁZQUEZ Exam Date: 06/11/2022 : 1960 Gender:F Ordering : DR DEDE MICHAELS . Admission #: [id number] Family : Order #: [id number] CLICK HERE TO VIEW EXAM ECHOCARDIOGRAM REPORT [...] M.D. on 06/11/2022 at 16:26 Normal [facility] PROTEIN 24HR URINEon 022 T PROT, 24 HR UR 123.0 mg/24 hr Normal <=149.1 [facility] Comment on above: Performed By: #### P ROT24U ####[facility] [address] [place], [place] [address]XnStefania Barnhart UR PROT 4.1 mg/dL Normal <=11.9 [facility] Comment on above: Performed By: #### P ROT24U ####[facility] [address] [place] [address]DrStefania Barnhart UR TOT VOL 3000 ml/24 HR Normal [facility] Comment on above: Performed By: #### P ROT24U ####[facility] [address] [place] [address]DrStefania Barnhart INSULINon 06-05-2022 Insulin 10.2 uIU/mL Normal 2.6-24.9 [facility] Comment on above: Performed By: #### I NSULIN ####[facility] [address] [place] [address]DrStefania Barnhart BNPon 06-02-2022 Natriuretic peptide B (Bld) [Mass/Vol] 215.0 pg/mL Normal <=900.0 [facility] Comment on above: Performed By: #### L IPID, T7, TSH, BNP, CMP #### [facility] [address] [place] [address] [address] Madison Barnhart CBC AUTO DIFFon 06-02-2022 BASO # 0.0 103/ul Normal 0.0-0.1 [facility] Comment on above: Performed By: #### C BC ####[facility] [address]bz[address] [place] [address]DrStefania Barnhart Basophils/100 WBC (Bld) 0.7 % Normal 0.2-2.0 [facility] Comment on above: Performed By: #### C BC ####[facility] [address] [place] [address]DrStefania Barnhart EO # 0.1 103/ul Normal 0.0-0.7 [facility] Comment on above: Performed By: #### C BC ####[facility] [address]zz[address]cbrlc[address] [place] [address]DrStefania Barnhart Eosinophils/100 WBC (Bld) 1.5 % Normal 0.9-7.0 [facility] Comment on above: Performed By: #### C BC ####[facility] [address] [place], [place] [address]DrStefania Barnhart Erythrocyte distribution width (RBC) [Ratio] 13.2 % Normal 11.0-15.0 [facility] Comment on above: Performed By: #### C BC ####[facility] [address]mesdqphc[address] [place] [address]Dr. Madison Barnhart Hematocrit (Bld) [Volume fraction] 42.2 % Normal 36.0-48.0 [facility] Comment on above: Performed By: #### C BC ####[facility] [address]sc[address]sw[address]rsg[address] [place] [address]Dr. Madison Barnhart Hemoglobin (Bld) [Mass/Vol] 13.7 g/dL Normal 12.0-16.0 [facility] Comment on above: Performed By: #### C BC ####[facility] C[address]uzs[address]zz[address] [place], [place] [address]Dr. Madison Barnhart IG # 0.04 10e3/ul Critically high 0.00-0.03 [facility] Comment on above: Performed By: #### C BC ####[facility] [address] [place], [place] [address]Dr. Madison Barnhart IG % 0.7 % Critically high 0.0-0.5 [facility] Comment on above: Performed By: #### C BC ####[facility] Mkkehggjvd[address] [place], [place] [address]Dr. Madison Barnhart LYMPH # 1.3 103/ul Normal 1.2-3.8 [facility] Comment on above: Performed By: #### C BC ####[facility] [address]xjrfy[address] [place], [place] [address]Dr. Madison Barnhart Lymphocytes/100 WBC (Bld) 23.3 % Normal 20.5-60.0 [facility] Comment on above: Performed By: #### C BC ####[facility] [address]lt[address]zcw[address] [place], [place] [address]Dr. Madison Barnhart MANUAL DIFF REQ NO Normal [facility] Comment on above: Performed By: #### C BC ####[facility] [address]uk[address]xbzx[address] [place], [place] [address]Dr. Madison Barnhart MCH (RBC) [Entitic mass] 30.6 pg Normal 26.7-34.0 [facility] Comment on above: Performed By: #### C BC ####[facility] [address]enace[address] [place] [address]Dr. Lamarhilario Obey MCHC (RBC) [Mass/Vol] 32.5 g/dL Normal 29.9-35.2 [facility] Comment on above: Performed By: #### C BC ####[facility] [address]tyn[address] [place] [address]Dr. Madison Barnhart MCV (RBC) [Entitic vol] 94.2 fL Normal 81.0-99.0 [facility] Comment on above: Performed By: #### C BC ####[facility] Z[address]httnyr[address] [place], [place] [address]DrStefania Barnhart MONO # 0.5 103/ul Normal 0.3-0.8 [facility] Comment on above: Performed By: #### C BC ####[facility] [address]wyktsk[address] [place], [place] [address]Dr. Madison Barnhart Monocytes/100 WBC (Bld) 8.8 % Normal 1.7-12.0 [facility] Comment on above: Performed By: #### C BC ####[facility] [address]yt[address]mzz[address] [place], [place] [address]DrStefania Barnhart NEUT # 3.5 103/ul Normal 1.4-6.5 [facility] Comment on above: Performed By: #### C BC ####[facility] Qmbkyfqqzt[address] [place], [place] [address]Dr. Madison Barnhart Neutrophils/100 WBC (Bld) 65.0 % Normal 43.0-75.0 [facility] Comment on above: Performed By: #### C BC ####[facility] [address]sswssfai[address] [place], [place] [address]DrStefania Barnhart Platelet mean volume (Bld) [Entitic vol] 9.0 fL Critically low 9.5-13.5 [facility] Comment on above: Performed By: #### C BC ####[facility] [address] [place], [place] [address]Dr. Madison Barnhart PLT 245 103/ul Normal 150-450 [facility] Comment on above: Performed By: #### C BC ####[facility] [address] [place] [address]Dr. Madison Barnhart RBC 4.48 106/ul Normal 4.20-5.40 [facility] Comment on above: Performed By: #### C BC ####[facility] [address] [place] [id number] Barnhart WBC 5.4 103/ul Normal 4.0-11.0 [facility] Comment on above: Performed By: #### C BC ####[facility] [address] [place] [address]Dr. Madison Barnhart FREE THYROXINE INDEX T7on FTI 2.26 Normal 1.30-4.50 [facility] Comment on above: Performed By: #### L IPID, T7, TSH, BNP, CMP #### [facility] [address] [place] [address] [address] Madison Barnhart T3U 31.0 % Normal 30.0-39.0 [facility] Comment on above: Performed By: #### L IPID, T7, TSH, BNP, CMP #### [facility] [address] [address] [address] Madison Barnhart T4 [Mass/Vol] 7.30 ug/dL Normal 4.80-13.90 [facility] Comment on above: Performed By: #### L IPID, T7, TSH, BNP, CMP #### [facility] Laboratory [address] [address] [address] Madison Barnhart GLYCOHEMOGLOBIN A1Con 2021 ADA RECOMMENDATION SEE BELOW Normal [facility] Comment on above: Result Comment: ADA RECOMMENDED LIMIT 4.0 - 6.0 ADA THERAPEUTIC TARGET < 7.0 ACTION SUGGESTED > 7.0 Performed By: #### A 1C ####[facility] [address] [address]Dr[address] Madison Barnhart Glucose [Mass/Vol] 117 mg/dL Normal [facility] Comment on above: Performed By: #### A 1C ####[facility] [address] [place], [place] [address]PmStefania Barnhart HbA1c (Bld) [Mass fraction] 5.7 % Normal 4.5-6.2 [facility] Comment on above: Performed By: #### A 1C ####[facility] [address] [place], [place] [address]ZpStefania Barnhart IRONon 06-02-2022 Iron [Mass/Vol] 85.0 ug/dL Normal 50.0-170.0 [facility] Comment on above: Performed By: #### I JACK ####[facility] [address] [place], [place] [address]OiStefania Barnhart LIPID PROFILEon 06-02-2022 CHOL-HDL RATIO NORM SEE BELOW Normal [facility] Comment on above: Result Comment: 3.3 - 4.4 LOW RISK 4.4 - 7.1 AVERAGE RISK 7.1 - 11.0 MODERATE RISK >11.0 HIGH RISK Performed By: #### L IPID, T7, TSH, BNP, CMP #### [facility] [address] [address] [address] Madison Barnhart Cholesterol [Mass/Vol] 238 mg/dL Critically high <=200 [facility] Comment on above: Performed By: #### L IPID, T7, TSH, BNP, CMP #### [facility] [address] [place], [place] [address] Dr. Madison Barnhart Cholesterol in HDL [Mass/Vol] 90 mg/dL Critically high 40-60 [facility] Comment on above: Performed By: #### L IPID, T7, TSH, BNP, CMP #### [facility] [address] [address] [address] Madison Barnhart Cholesterol in LDL [Mass/Vol] 132.4 mg/dL Normal [facility] Comment on above: Performed By: #### L IPID, T7, TSH, BNP, CMP #### [facility] [address] [address] [address] Madison Barnhart Cholesterol.total/Chol esterol in HDL [Mass ratio] 2.6 {ratio} Normal [facility] Comment on above: Performed By: #### L IPID, T7, TSH, BNP, CMP #### [facility] [address] [address] [address] Madison Barnhart HDL NORMAL > or = 60 mg/dl - LO W CARDIOVASCULAR RISK <40 mg/dl - HIGH CARDIOVASCULAR RISK Normal [facility] Comment on above: Performed By: #### L IPID, T7, TSH, BNP, CMP #### [facility] [address] [address] [address] Madison Barnhart LDL CALC NORMAL SEE BELOW Normal [facility] Comment on above: Result Comment: <100 mg/dl OPTIMAL 100 - 129 mg/dl NEAR OR ABOVE OPTIMAL 130 - 159 mg/dl BORDERLINE HIGH 160 - 189 mg/dl HIGH >190 mg/dl VERY HIGH Performed By: #### L IPID, T7, TSH, BNP, CMP #### [facility] [address] [place] [address] Dr. Madison Barnhart Triglyceride [Mass/Vol] 78 mg/dL Normal <=150 [facility] Comment on above: Performed By: #### L IPID, T7, TSH, BNP, CMP #### [facility] [address] [place] [address] Dr. Madison Barnhart VLDL CALC 15.6 mg/dL Normal [facility] Comment on above: Performed By: #### L IPID, T7, TSH, BNP, CMP #### [facility] [address] [place] [address] Dr. Madison Barnhart PROF 14(COMP METB)on 022 Albumin [Mass/Vol] 3.5 g/dL Normal 3.4-5.0 [facility] Comment on above: Performed By: #### L IPID, T7, TSH, BNP, CMP #### [facility] [address] [place] [address] Dr. Madison Barnhart Albumin/Globulin [Mass ratio] 1.1 {ratio} Normal [facility] Comment on above: Performed By: #### L IPID, T7, TSH, BNP, CMP #### [facility] [address] [place] [address] Dr. Maidson Barnhart ALP [Catalytic activity/Vol] 92 U/L Normal 46-116 [facility] Comment on above: Performed By: #### L IPID, T7, TSH, BNP, CMP #### [facility] [address] [place] [address] Dr. Madison Barnhart ALT [Catalytic activity/Vol] 28 U/L Normal 14-59 [facility] Comment on above: Performed By: #### L IPID, T7, TSH, BNP, CMP #### [facility] [address] [place] [address] Dr. Madison Barnhart Anion gap [Moles/Vol] 10.6 mmol/L Normal [facility] Comment on above: Performed By: #### L IPID, T7, TSH, BNP, CMP #### [facility] [address] [place] [address] Dr. Madison Barnhart AST [Catalytic activity/Vol] 17 U/L Normal 15-37 [facility] Comment on above: Performed By: #### L IPID, T7, TSH, BNP, CMP #### [facility] [address] [place] [address] Dr. Madison Barnhart Bilirubin [Mass/Vol] 0.5 mg/dL Normal 0.2-1.0 [facility] Comment on above: Performed By: #### L IPID, T7, TSH, BNP, CMP #### [facility] [address] [place] [address] Dr. Madison Barnhart Calcium [Mass/Vol] 8.4 mg/dL Critically low 8.5-10.1 [facility] Comment on above: Performed By: #### L IPID, T7, TSH, BNP, CMP #### [facility] [address] [place] [address] Dr. Madison Barnhart Chloride [Moles/Vol] 105 mmol/L Normal 98-107 [facility] Comment on above: Performed By: #### L IPID, T7, TSH, BNP, CMP #### [facility] [address] [place] [address] Dr. Madison Barnhart CO2 [Moles/Vol] 28.3 mmol/L Normal 21.0-32.0 [facility] Comment on above: Performed By: #### L IPID, T7, TSH, BNP, CMP #### [facility] [address] [place] [address] Dr. Madisno Barnhart Creatinine [Mass/Vol] 1.08 mg/dL Critically high 0.55-1.02 [facility] Comment on above: Performed By: #### L IPID, T7, TSH, BNP, CMP #### [facility] [address] [address] [address] Madison Barnhart EGFR-AF MICRONESIAN >60 Normal >=60 [facility] Comment on above: Performed By: #### L IPID, T7, TSH, BNP, CMP #### [facility] [address] [place] [address] Dr. Madison Barnhart EGFR-NON AF MICRONESIAN 52 mL/min/1.73m2 Critically low >=60 [facility] Comment on above: Performed By: #### L IPID, T7, TSH, BNP, CMP #### [facility] [address] [place] [address] Dr. Madison Barnhart Globulin (S) [Mass/Vol] 3.3 g/dL Normal [facility] Comment on above: Performed By: #### L IPID, T7, TSH, BNP, CMP #### [facility] [address] [place] [address] Dr. Madison Barnhart Glucose [Mass/Vol] 99 mg/dL Normal 74-106 [facility] Comment on above: Performed By: #### L IPID, T7, TSH, BNP, CMP #### [facility] [address] [place] [address] Dr. Madison Barnhart Potassium [Moles/Vol] 3.9 mmol/L Normal 3.5-5.1 [facility] Comment on above: Performed By: #### L IPID, T7, TSH, BNP, CMP #### [facility] [address] [place] [address] Dr. Madison Barnhart Protein [Mass/Vol] 6.8 g/dL Normal 6.4-8.2 [facility] Comment on above: Performed By: #### L IPID, T7, TSH, BNP, CMP #### [facility] [address] [address] [address] Madison Barnhart Sodium [Moles/Vol] 140 mmol/L Normal 136-145 [facility] Comment on above: Performed By: #### L IPID, T7, TSH, BNP, CMP #### [facility] [address] [address] [address] Madison Barnhart Urea nitrogen [Mass/Vol] 22.0 mg/dL Critically high 7.0-18.0 [facility] Comment on above: Performed By: #### L IPID, T7, TSH, BNP, CMP #### [facility] [address] [address] [address] Madison Barnhart Urea nitrogen/Creatinine [Mass ratio] 20.4 mg/mg Normal [facility] Comment on above: Performed By: #### L IPID, T7, TSH, BNP, CMP #### [facility] [address] [address] [address] Madison Barnhart TSHon 06-02-2022 TSH 1.046 uIU/mL Normal 0.358-3.740 [facility] Comment on above: Performed By: #### L IPID, T7, TSH, BNP, CMP #### [facility] [address] [address] [address] Madison Barnhart Ambulatory Clinical Summaryo n 08-09-2020 Ambulatory Clinical Summary {[id number] Normal [facility] Coding Summary.on 10-27-2019 Coding Summary. CODING DATE: 10/27/2019 FINAL [facility] STATUS: Home (Routine DC) PAYOR: Ivana APC [...] Christa Marcus Date Saved: 10/27/2019 03:40 pm [facility] Vital Signs Date Time Vital Sign Value Performing Clinician Facility 08-16-2023 14:00-0400 Body height 172.72 cm Markell Odell Other [facility] Other 08-16-2023 14:00-0400 Body mass index (BMI) [Ratio] 25.39 kg/m2 Markell Odell Other [facility] Other 08-16-2023 14:00-0400 Body weight 75.75 kg Markell Odell Other [facility] Other 08-16-2023 14:00-0400 Diastolic blood pressure 78 mm[Hg] Markell Odell Other [employer] Other 08-16-2023 14:00-0400 Systolic blood pressure 138 mm[Hg] Markell Odell Other [employer] Other 07-09-2023 14:02-0400 Diastolic blood pressure 67 mm[Hg] MD Dede Michaels Work Phone: [facility] 07-09-2023 14:02-0400 Heart rate 55 /min MD Dede Michaels Work Phone: [facility] 07-09-2023 14:02-0400 Respiratory rate 16 /min MD Dede Michaels Work Phone: [facility] 07-09-2023 14:02-0400 SaO2% (BldA) [Mass fraction] 98 % MD Dede Michaels Work Phone: [facility] 07-09-2023 14:02-0400 Systolic blood pressure 128 mm[Hg] MD Dede Michaels Work Phone: [facility] 07-09-2023 12:16040 Body height 172.72 cm MD Dede Michaels Work Phone: [facility] 07-09-2023 12:16040 Body temperature 97.8 [degF] MD Dede Michaels Work Phone: [facility] 07-09-2023 12:16 Body weight 77.11 kg MD Dede Michaels Work Phone: [facility] Encounters Encounter Date Encounter Type Care Provider Facility Start: 08-20-2023 End: 08-20-2023 ambulatory Markell Odell Other [facility] Other Start: 08-20-2023 Telephone encounter [facility] Start: 08-16-2023 End: 08-16-2023 ambulatory Markell Odell Other [employer] Other Start: 08-16-2023 Office outpatient visit 15 minutes Markell Odell [facility] Start: 08-09-2023 End: 08-12-2023 ambulatory [facility] Start: 07-09-2023 End: 07-09-2023 ambulatory Oziel Whalen Facility:[facility] Start: 07-09-2023 End: 07-09-2023 Admission to same day surgery center MD Dede Michaels Work Phone: [facility] Work Phone: Start: 07-09-2023 End: 07-09-2023 ambulatory MD Dede Michaels Work Phone: [facility] Work Phone: Start: 06-25-2023 End: 06-25-2023 ambulatory [facility] Start: 06-07-2023 End: 06-07-2023 ambulatory [facility] Start: 04-29-2023 End: 04-29-2023 ambulatory PAYAL FRANCO . [facility] Work Phone: Start: 04-29-2023 End: 04-29-2023 Departed Referred MD Payal Franco Work Phone: [facility] [place] Work Phone: Start: 06-11-2022 End: 06-12-[address] DEDE MICHAELS . Facility: Start: 06-02-2022 End: 06-03-[address] DEDE MICHAELS . Facility: Procedures Date Procedure Procedure Detail Performing Clinician Start: 07-09-2023 Esophagogastroduodenoscopy MD Dede Michaels Work Phone: Plan of Treatment Date Care Activity Detail Author Start: 07-09-2023 [facility] Patient Education Hiatal Hernia (DC) [facility] Work Phone: Payers Date Payer Category Payer Self-pay [id number] 2023 Unknown [id number] [facility] [id number] 1960 Unknown [id number] 2.16.84 [id number] 1960 Unknown [id number] .16.84 [id number] 1960 Unknown [id number] .16.84 [id number] 1958 Unknown [id number] Unknown Ivana BC/BS [id number] Unknown [id number] 2.16.8 [id number] Unknown [id number] 2.16.8 [id number] Social History Date Type Detail Facility Tobacco smoking status NHIS Unknown if ever smoked [facility] Work Phone: Start: 1960 Sex Assigned At Female F [facility] Start: 07-09-2023 Tobacco smoking status NHIS Never smoked tobacco (finding) [facility] Sex Assigned At Sex Assigned At Bir th [employer] Other Goals Date Patient Goal Desired Activity /State Clinical Notes 06-05-2022 to 08-20-2023 Note Date & Type Note Facility 08-20-2023 Evaluation note Encounter Date Diagnosis Assessment Notes Aug, Hiatal hernia (ICD-10 - K44.9) [facility] Other 09-15-2023 Evaluation note* Encounter Date Diagnosis [...] her bed at night RTO 3 months [employer] Other 09-08-2023 NotePatient here for 2 mo follow up. She started Eliquis. Metoprolol was decreased at last visit. She is doing well, denies chest pain and palpitations. Denies bleeding on Eliquis.[facility]09-08-2023 NoteCardiology Clinic Note Chief Complaint: follow up [...] of Abnormal ECG, Arrhythmia, and Atrial fibrillation ([facility]). Surgical History She has no [...] Patient verbalizes understanding (more content not included)... [facility]08[facility]08[facility] NotePatient here to discuss abnormal stress test. Had normal echo, and is still wearing 30 day event monitor.[facility]07-25-2023 Note Cardiology Clinic Note Chief Complaint: follow [...] of Abnormal ECG, Arrhythmia, and Atrial fibrillation ([facility]). Surgical History She has no [...] was previously not anticoagulated because of low [id number]-DLId score. However, after further review of her chart, it appears that Years ago, she had an episode that was concerning for CVA versus TIA. MRI did not demonstrate definite evidence of infarct. As such, her [id number] score is actually 4. I discussed with patient need for anticoagulation. She preferred to proceed with 30-day event monitor. Patient has not had a documented atrial fibrillation on ai (more content not included)...[facility]07-07-2023 NoteCardiology Clinic Note Chief Complaint: new patient [...] of Abnormal ECG, Arrhythmia, and Atrial fibrillation ([facility]). Surgical History She has no [...] was previously not anticoagulated because of low [id number]-PESh score. However, after further review of her chart, it appears that Years ago, she had an episode that was concerning for CVA versus TIA. MRI did not demonstrate definite evidence of infarct. As such, her [id number]-RLFl score is actually 4. I discussed with [...] plan. -Patient was educat (more content not included)...[facility]07-07-2023 NoteNew patient here to re-establish care. She recently presented to [facility] ED for chest pressure and SOB. She was treated for bronchitis at that time. SUMMERS and palpitations have been worsening lately. Review of Systems Cardiovascular: Positive for chest pain (pressure type), dyspnea on exertion and palpitations. All other systems reviewed and are negative.[facility] 06-05-2022 NoteEXAMINATION: CTA CHEST WO W CON [...] authenticated by: ANDREW RODRIGUEZ Date: 2022-06-05 07:54[facility] noteNo assessment information availableTr[facility] Work Phone: History and physical note Author Oziel Whalen [facility] July 09, 2023 1:21pm Note Date/Time July 09, 2023 1:2 1pm [facility] [address] [place] [address] Gastroenterology H&P Signed Patient: Liliana Vázquez MR# : [id number] : 1960 Acct:[id number] Age/Sex: 63 / F Adm Date: 3 Loc: Room: Type: [facility] Attending Dr: Oziel Whalen MD Copies to: [...] signed by Oziel Whalen MD> 07/09/[address] [facility] Work Phone: History general Narrative - Reported* Type Description Date Medical History Hyperthyroidism Medical History high blood pressure Medical History Atrial fibrillation [employer] Other Hospital Discharge instructions Additional Instructions DISCHARGE [...] NOT operate machinery such as power tools, goDog Fetch mowers, BioSTLwers, sewing machines, etc. for 24 hours. - [...] problems. -Follow up with PCP. -Office number [phone].[facility] Work Phone: Summary Purpose Family History Relationship [...] section and content) DATE CREATED AUTHOR 08/08/2020 [employer] [facility] DATE CREATED AUTHOR AUTHOR'S ORGANIZ ATION 05/11/2023 [facility] DATE CREATED AUTHOR AUTHOR'S ORGANIZ ATION 07/14/2023 [facility] DATE CREATED AUTHOR AUTHOR'S ORGANIZ ATION 08/19/2023 [facility] Care Teams (unrecognized sec tion and [...] BE BASED ON THE PRIMARY CLINICAL RECORDS. [facility] [employer] [facility]. provides no warranty or guarantee of the accuracy or completeness of information in this document.
== END 2023-11-30 12:41 | disposition home or self-care (01) ==
LOC: LAB 12-05 15:33
PROVIDERS: PCP Family Medicine; Visit Provider Family Medicine
DX: E05.90 Thyrotoxicosis, unspecified without thyrotoxic crisis or storm (principal)
CPT/HCPCS: 36415; 84436

== ENCOUNTER 2023-12-24 09:59 | Outpatient (OUT) | payer OTHER, SELFPAY ==
[2023-12-24 10:45] LABS: Estimated Average Glucose 114 mg/dL; Glycohemoglobin A1C 5.6 % (4.5-6.2)
[2023-12-24 10:52] LABS: Alanine Aminotransferase 22 U/L (14-59); Albumin Globulin Ratio 0.9; Albumin Level 3.3 g/dL (3.4-5.0); Alkaline Phosphatase 102 U/L (46-116); Anion Gap 10.8; Aspartate Amino Transferase 16 U/L (15-37); BUN Creatinine Ratio 19.4; Bilirubin Total 0.4 mg/dL (0.2-1.0); Calcium 8.5 mg/dL (8.5-10.1); Carbon Dioxide 28.2 mmol/L (21.0-32.0); Chloride 105 mmol/L (98-107); Chol HDL Ratio 2.8; Cholesterol 247 mg/dL (<=200); Estimated GFR (African America >60 (>=60); Estimated GFR (Non-African Ame 51 (>=60); Free T3 1.91 pg/mL (2.18-3.98); Globulin 3.6 g/dL; Glucose 94 mg/dL (74-106); HDL Cholesterol 87 mg/dL (40-60); Sodium 140 mmol/L (136-145); Thyroid Stimulating Hormone 1.561 uIU/mL (0.358-3.740); Total Protein 6.9 g/dL (6.4-8.2); Triglycerides 92 mg/dL (<=150); VLDL CHOLESTEROL 18.4 mg/dL
[2023-12-24 10:59] LABS: Basophils Percent Auto 0.6 % (0.2-2.0); Eosinophils Absolute Auto 0.1 10^3/uL (0.0-0.7); Eosinophils Percent Auto 2.3 % (0.9-7.0); Hematocrit 43.1 % (36.0-48.0); Hemoglobin 13.9 g/dL (12.0-16.0); Immature Granulocytes Abs Auto 0.02 10^3/uL (0.00-0.03); Immature Granulocytes Pct Auto 0.4 % (0.0-0.5); Lymphocytes Absolute Auto 1.2 10^3/uL (1.2-3.8); Lymphocytes Percent Auto 24.5 % (20.5-60.0); Mean Corpuscular HGB Conc 32.3 g/dL (29.9-35.2); Mean Corpuscular Hemoglobin 30.3 pg (26.7-34.0); Mean Corpuscular Volume 94.1 fL (81.0-99.0); Monocytes Absolute Auto 0.4 10^3/uL (0.3-0.8); Monocytes Percent Auto 7.7 % (1.7-12.0); Neutrophils Absolute Auto 3.1 10^3/uL (1.4-6.5); Neutrophils Percent Auto 64.5 % (43.0-75.0); Platelet Count 255 10^3/uL (150-450); Red Blood Count 4.58 10^6/uL (4.20-5.40); Red Cell Distribution Width 13.1 % (11.0-15.0); White Blood Count 4.8 10^3/uL (4.0-11.0)
[2023-12-25 12:08] LABS: Insulin 10.3 uIU/mL (2.6-24.9)
[2023-12-25 17:10] LABS: Cortisol - AM 20.9 ug/dL (6.2-19.4)
== END 2023-12-24 10:00 | disposition home or self-care (01) ==
PROVIDERS: PCP Family Medicine; Visit Provider Family Medicine
DX: Z00.00 Encounter for general adult medical examination without abnormal findings (principal); R73.09 Other abnormal glucose; E55.9 Vitamin D deficiency, unspecified
CPT/HCPCS: 36415; 80053; 80061; 82306; 82533; 83036; 83525; 83540; 84436; 84443; 84481; 85025

== ENCOUNTER 2023-12-27 13:04 | Outpatient (OUT) | payer OTHER, SELFPAY ==
--- OUTSIDE RECORDS SUMMARY | 2023-12-27 13:07 | XMS_ITS | CCD ---
Author Name Unknown Address [address] [place] [address] Organization [facility] Care Team Providers Care Disassembler Product Name Role Phone MD Payal Franco Attending Provider DIAB ., PAYAL Admitting Unavailable DIAB ., PAYAL Consulting Unavailable DIAB ., PAYAL Attending Unavailable HOY ., DR AGUAYO Primary Care Unavailable LEEROY VILLA Consulting Unavailable UNLU, TL Consulting Unavailable HOY ., DR AGUAYO Admitting [...] Unavailable MD Dede Michaels Primary Care Provider [phone] MD Oziel Whalen Attending Provider Oziel Whalen [...] source) bee venom Drug allergy (disorder) [facility] Repository (2 sources) venom-honey bee; Translations: [venom-honey bee] Allergy to substance 07-08-20 [facility] (2 sources) Sulfamethoxazole / Trimethoprim Drug Allergy upset stomach [place] [facility] Other Medications Current Medications Medication Drug Class(es) Dates Sig (Normalized) Sig (Original) [id number] 200 actuat albuterol 0.09 mg/actuat metered dose [...] 06-13-2022 Chronic Other aftercare (1 source) 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; Translations: [OTH RADIO RECORDER CURRENT DRUG THERAPY] Onset: 04-30-2023 Episodic Other [...] Range Facility Office Visiton 08-09-2023 Follow-up visit [id number] Phil Vázquezquegamal Willis 1960 F Date Provider Department Center 08/09/2023 3848-ANGELLA JI Family History Problem Relation Age of Onset Stroke Mother Stroke Father Stroke Sister Family Status - Relation Status Age at Mother Father Sister Level of Service:74196 PA OFFICE/OUTPATIENT ESTABLISHED MOD MDM 30-39 MIN Normal [facility] Neeraj 07-09-2023 L - -------- Specimen: [id number] Received: 07/09/23 Status: MITCHELL Antoine Num: [id number] Spec Type: Surgical Subm Dr: Oziel Whalen MD Tissues: A Esophagus Biopsy (ESOPHAGUS BX) Procedures: HE/2, Gross/Micro L4 -------- Age/ Patient Sex Location Account Attending Physician -------- Liliana Vázquez 63/F [id number] Oziel Whalen MD -------- SPEC NUM: [id number] RECD: 07/09/23 STATUS: MITCHELL ANTOINE NUM: [id number] RUSTY: 07/09/23 [facility] DR: Oziel Whalen MD ENTERED: 07/09/[address] [facility] DR: OSIEL TYPE: Surgical DEPT: S ORDERED: HE/2, Gross/Micro [...] microscopic examination confirms the diagnosis. -------- Specimen: [id number] Received: 07/09/23 Status: MITCHELL Antoine Num: [id number] Spec Type: Surgical Subm Dr: Oziel Whalen MD Tissues: A Esophagus Biopsy (ESOPHAGUS BX) Procedures: Michael MARTIN/Felton L4 -------- Patient: Liliana Vázquez [id number] (Continued) -------- Specimen: [id number] Received: 07/09/23 (Continued) Signed (signature on file) Jaylen Sauceda MD 07/11/23 1157 -------- Specimen: [id number] Received: 07/09/23 Status: MITCHELL Antoine Num: [id number] Spec Type: Surgical Subm Dr: Oziel Whalen MD Tissues: A Esophagus Biopsy (ESOPHAGUS BX) Procedures: Michael MARTIN/Felton L4 -------- Patient: Liliana Vázquez [id number] (Continued) -------- Specimen: [id number] Received: 07/09/23 (Continued) CPT Codes 44846 -------- -------- Specimen: [id number] Received: 07/09/23 Status: MITCHELL Antoine Num: [id number] Spec Type: Surgical Subm Dr: Oziel Whalen MD Tissues: A Esophagus Biopsy (ESOPHAGUS BX) Procedures: TUSHAR/2, Gross/Micro L4 -------- Patient: Liliana Vázquez [id number] (Continued) -------- Signed (signature on file) Jaylen Sauceda MD 07/11/23 1157 [facility] 36on 07-02-2023 36 Patient's event monitor showed 19 mins of afib this morning. Strip was emailed to Dr. Ji who recommended she start Eliquis 5mg bid. I then spoke with patient who agreed to start it. Rx was sent to her pharmacy. Normal [facility] Office Visiton 06-25-2023 Follow-up visit [id number] Liliana Vázquez S 1960 F Date Provider Department [facility] No family history on file Level of Service:03284 PA OFFICE/OUTPATIENT ESTABLISHED MOD MDM 30-39 MIN Normal [facility] Office Visiton 06-07-2023 Follow-up visit [id number] Liliana Vázquez 1960 F Date Provider Department Center 06/07/2023 ANGELLA GRIER [facility] No family history on file Level of Service:93327 PA OFFICE/OUTPATIENT NEW MODERATE MDM 45-59 MINUTES [facility] BNPon 04-29-2023 Natriuretic peptide B (Bld) [Mass/Vol] 181.0 pg/mL Normal <=900.0 [facility] Comment on above: Performed By: #### B COMMUNICATIONS PROJECT MANAGER, CMP, CMADM ####[facility] We[address] [place], [place] [address]Dr. Madison Barnhart CARDIAC NAVA ADMITon 023 CK [Catalytic activity/Vol] 78 U/L Normal 26-192 [facility] Comment on above: Performed By: #### B COMMUNICATIONS PROJECT MANAGER, CMP, CMADM ####[facility] [address] [place] [address]Dr. Madison Barnhart CK.MB [Mass/Vol] ng/mL Normal <=3.60 [facility] Comment on above: Performed By: #### B COMMUNICATIONS PROJECT MANAGER, CMP, CMADM ####[facility] [address] [place] [address]Dr. Madison Barnhart HSTROP 5.2 pg/mL Normal 4.0-51.3 [facility] Comment on above: Result Comment: CUT- OFF POINTS HAVE BEEN ESTABLISHED BASED ON THE FOURTH UNIVERSAL DEFINITIONS OF MYOCARDIAL INFARCTION. THE UPPER REFERENCE LIMIT (URL) OF TROPONIN, DEFINED THE 99TH PERCENTILE OF cTnI DISTRIBUTION IN A REFERENCE POPULATION, HAS BEEN CONFIRMED THE DECISION THRESHOLD FOR CA DIAGNOSIS. Performed By: #### B COMMUNICATIONS PROJECT MANAGER, CMP, CMADM ####[facility] [address]zuz[address] [place] [address]Dr. Madison Barnhart KG 72 ng/mL Normal 9-82 [facility] Comment on above: Performed By: #### B COMMUNICATIONS PROJECT MANAGER, CMP, CMADM ####[facility] Xyiwp[address] [place] [address]Dr. Madison Barnhart CBC AUTO DIFFon 04-29-2023 BASO # 0.0 103/ul Normal 0.0-0.1 [facility] Comment on above: Performed By: #### C BC ####[facility] [address]ob[address]zd[address] [place] [id number]. Madison Obey Basophils/100 WBC (Bld) 0.3 % Normal 0.2-2.0 [facility] Comment on above: Performed By: #### C BC ####[facility] [address]we[address] [place] [address]Dr. Madison Obey EO # 0.1 103/ul Normal 0.0-0.7 [facility] Comment on above: Performed By: #### C BC ####[facility] Grypzrjvsw[address] [place] [id number]. Madison Barnhart Eosinophils/100 WBC (Bld) 2.2 % Normal 0.9-7.0 [facility] Comment on above: Performed By: #### C BC ####[facility] E[address]wrdrfu[address] [place] [address]Dr. Madison Barnhart Erythrocyte distribution width (RBC) [Ratio] 13.1 % Normal 11.0-15.0 [facility] Comment on above: Performed By: #### C BC ####[facility] [address] [place], [place] [address]Dr. Madison Barnhart Hematocrit (Bld) [Volume fraction] 42.1 % Normal 36.0-48.0 [facility] Comment on above: Performed By: #### C BC ####[facility] [address]laxcdndl[address] [place] [address]Dr. Madison Barnhart Hemoglobin (Bld) [Mass/Vol] 13.9 g/dL Normal 12.0-16.0 [facility] Comment on above: Performed By: #### C BC ####[facility] [address]xlw[address] [place] [address]Dr. Madison Barnhart IG # 0.04 10e3/ul Critically high 0.00-0.03 [facility] Comment on above: Performed By: #### C BC ####[facility] Yaiovenaav[address] [place] [address]Dr. Madison Barnhart IG % 0.7 % Critically high 0.0-0.5 [facility] Comment on above: Performed By: #### C BC ####[facility] Xqfhufujqr[address] [place] [address]Dr. Madison Barnhart LYMPH # 0.5 103/ul Critically low 1.2-3.8 [facility] Comment on above: Performed By: #### C BC ####[facility] [address]kctrfoll[address] [place] [address]Dr. Madison Barnhart Lymphocytes/100 WBC (Bld) 7.9 % Critically low 20.5-60.0 [facility] Comment on above: Performed By: #### C BC ####[facility] [address]abdiv[address] [place] [address]Dr. Madison Barnhart MANUAL DIFF REQ NO Normal [facility] Comment on above: Performed By: #### C BC ####[facility] Mlktkcqvdk[address] [place] [id number]. Madison Barnhart MCH (RBC) [Entitic mass] 30.7 pg Normal 26.7-34.0 [facility] Comment on above: Performed By: #### C BC ####[facility] R[address]irzs[address] [place], [place] [address]Dr. Madison Barnhart MCHC (RBC) [Mass/Vol] 33.0 g/dL Normal 29.9-35.2 [facility] Comment on above: Performed By: #### C BC ####[facility] T[address] [place], [place] [address]Dr. Madison Obey MCV (RBC) [Entitic vol] 92.9 fL Normal 81.0-99.0 [facility] Comment on above: Performed By: #### C BC ####[facility] [address]morz[address] [place] [address]Dr. Madison Barnhart MONO # 0.8 103/ul Normal 0.3-0.8 [facility] Comment on above: Performed By: #### C BC ####[facility] R[address]qftudme[address] [place] [address]Dr. Lamarhilario Barnhart Monocytes/100 WBC (Bld) 13.1 % Critically high 1.7-12.0 [facility] Comment on above: Performed By: #### C BC ####[facility] [address] [place], [place] [address]Dr. Madison Barnhart NEUT # 4.6 103/ul Normal 1.4-6.5 [facility] Comment on above: Performed By: #### C BC ####[facility] Cdpts[address]bt[address] [place], [place] [address]Dr. Lamarhilario Barnhart Neutrophils/100 WBC (Bld) 75.8 % Critically high 43.0-75.0 [facility] Comment on above: Performed By: #### C BC ####[facility] [address] [place], [place] [address]Cu. Madison Barnhart Platelet mean volume (Bld) [Entitic vol] 9.4 fL Critically low 9.5-13.5 [facility] Comment on above: Performed By: #### C BC ####[facility] Tzyitmsbnf1574 [place], [place] [address]Mh. Madison Barnhart PLT 237 103/ul Normal 150-450 [facility] Comment on above: Performed By: #### C BC ####[facility] Xkvcvnpoyd7985 [place], [place] [address]Ct. Madison Barnhart RBC 4.53 106/ul Normal 4.20-5.40 [facility] Comment on above: Performed By: #### C BC ####[facility] Soijnqskom[address]49 [place], [place] [address]Of. Madison Barnhart WBC 6.0 103/ul Normal 4.0-11.0 [facility] Comment on above: Performed By: #### C BC ####[facility] [address]omqmfns[address] [place], [place] [address]Pu. [address] CHEST W CONon 04-29-2023 [...] on nonemergent basis. Electronically authenticated by: TL GARDINERU Date: 2023-04-29 14:57 Normal [facility] D-Dimer High Sensitivityon 0 04-29-2023 D-Dimer High Sensitivity < 200 Normal 0-243 [facility] Comment on above: Result Comment: The [...] patients due to co-morbid conditions. PERFORMED BY: [place] [address] PATHOLOGIST [employer] SCI[employer] TEACHER HOWIE BARKER M.D. Performed By: #### D DIMER #### [address] No Panel InformationOrdered By: Payal Franco on 04-29-2023 D-Dimer Quantitative (PE/DVT) < 200 ng/mL 0-243 [facility] Comment on above: The reference range [...] [Mass/Vol] 3.2 g/dL Critically low 3.4-5.0 [facility] Comment on above: Performed By: #### B COMMUNICATIONS PROJECT MANAGER, CMP, CMADM ####[facility] [address]ax[address] [place] [address]Dr. Lamarhilario Obey Albumin/Globulin [Mass ratio] 1.1 {ratio} Normal [facility] Comment on above: Performed By: #### B COMMUNICATIONS PROJECT MANAGER, CMP, CMADM ####[facility] [address]xbd[address] [place] [address]Dr. Lamarhilario Obey ALP [Catalytic activity/Vol] 119 U/L Critically high 46-116 [facility] Comment on above: Performed By: #### B COMMUNICATIONS PROJECT MANAGER, CMP, CMADM ####[facility] Ul[address]wr[address] [place], [place] [address]Dr. Madison Barnhart ALT [Catalytic activity/Vol] 32 U/L Normal 14-59 [facility] Comment on above: Performed By: #### B COMMUNICATIONS PROJECT MANAGER, CMP, CMADM ####[facility] Y[address] [place], [place] [address]Dr. Madison Barnhart Anion gap [Moles/Vol] 10.4 mmol/L Normal [facility] Comment on above: Performed By: #### B COMMUNICATIONS PROJECT MANAGER, CMP, CMADM ####[facility] Mpzlvzthxg[address] [place], [place] [address]Dr. Madison Barnhart AST [Catalytic activity/Vol] 21 U/L Normal 15-37 [facility] Comment on above: Performed By: #### B COMMUNICATIONS PROJECT MANAGER, CMP, CMADM ####[facility] Sch[address]cl[address] [place], [place] [address]Dr. Madison Barnhart Bilirubin [Mass/Vol] 0.6 mg/dL Normal 0.2-1.0 [facility] Comment on above: Performed By: #### B COMMUNICATIONS PROJECT MANAGER, CMP, CMADM ####[facility] Oevpqrsvxs[address] [place], [place] [address]Dr. Madison Barnhart Calcium [Mass/Vol] 8.2 mg/dL Critically low 8.5-10.1 [facility] Comment on above: Performed By: #### B COMMUNICATIONS PROJECT MANAGER, CMP, CMADM ####[facility] [address] [place] [address]Dr. Madison Barnhart Chloride [Moles/Vol] 107 mmol/L Normal 98-107 [facility] Comment on above: Performed By: #### B COMMUNICATIONS PROJECT MANAGER, CMP, CMADM ####[facility] Cxeyswzoco[address] [place] [address]Dr. Madison Barnhart CO2 [Moles/Vol] 27.7 mmol/L Normal 21.0-32.0 [facility] Comment on above: Performed By: #### B COMMUNICATIONS PROJECT MANAGER, CMP, CMADM ####[facility] [address] [place], [place] [address]Dr. Madison Barnhart Creatinine [Mass/Vol] 1.19 mg/dL Critically high 0.55-1.02 [facility] Comment on above: Performed By: #### B COMMUNICATIONS PROJECT MANAGER, CMP, CMADM ####[facility] Ywgxdqxeyw[address] [place], [place] [address]Dr. Madison Obey EGFR-AF ITALIAN 56 mL/min/1.73m2 Critically low >=60 [facility] Comment on above: Performed By: #### B COMMUNICATIONS PROJECT MANAGER, CMP, CMADM ####[facility] [address] [place], [place] [address]Dr. Madison Obey EGFR-NON AF ITALIAN 46 mL/min/1.73m2 Critically low >=60 [facility] Comment on above: Performed By: #### B COMMUNICATIONS PROJECT MANAGER, CMP, CMADM ####[facility] [address]etwe[address]ks[address] [place], [place] [address]Dr. Madison Obey Globulin (S) [Mass/Vol] 3.0 g/dL Normal [facility] Comment on above: Performed By: #### B COMMUNICATIONS PROJECT MANAGER, CMP, CMADM ####[facility] Su[address] [place], [place] [address]Dr. Madison Obey Glucose [Mass/Vol] 122 mg/dL Critically high 74-106 [facility] Comment on above: Performed By: #### B COMMUNICATIONS PROJECT MANAGER, CMP, CMADM ####[facility] [address]flcy[address] [place] [address]Dr. Lamarhilario Barnhart Potassium [Moles/Vol] 4.1 mmol/L Normal 3.5-5.1 [facility] Comment on above: Performed By: #### B COMMUNICATIONS PROJECT MANAGER, CMP, CMADM ####[facility] Xwcsvhadys[address] [place] [address]Dr. Madison Barnhart Protein [Mass/Vol] 6.2 g/dL Critically low 6.4-8.2 [facility] Comment on above: Performed By: #### B COMMUNICATIONS PROJECT MANAGER, CMP, CMADM ####[facility] [address]js[address]xuk[address] [place] [address]Dr. Madison Barnhart Sodium [Moles/Vol] 141 mmol/L Normal 136-145 [facility] Comment on above: Performed By: #### B COMMUNICATIONS PROJECT MANAGER, CMP, CMADM ####[facility] [address]hengrydt[address] [place] [address]Dr. Madison Barnhart Urea nitrogen [Mass/Vol] 16.0 mg/dL Normal 7.0-18.0 [facility] Comment on above: Performed By: #### B COMMUNICATIONS PROJECT MANAGER, CMP, CMADM ####[facility] [address]zn[address] [place] [address]Dr. Madison Barnhart Urea nitrogen/Creatinine [Mass ratio] 13.4 mg/mg Normal [facility] Comment on above: Performed By: #### B COMMUNICATIONS PROJECT MANAGER, CMP, CMADM ####[facility] [address] [place] [address]Dr. Madison Barnhart TROPONIN, HIGH SENSITIVITYon 04-29-2023 HSTROP 5.2 pg/mL Normal 4.0-51.3 [facility] Comment on above: Result Comment: CUT- OFF POINTS HAVE BEEN ESTABLISHED BASED ON THE FOURTH UNIVERSAL DEFINITIONS OF MYOCARDIAL INFARCTION. THE UPPER REFERENCE LIMIT (URL) OF TROPONIN, DEFINED THE 99TH PERCENTILE OF cTnI DISTRIBUTION IN A REFERENCE POPULATION, HAS BEEN CONFIRMED THE DECISION THRESHOLD FOR CA DIAGNOSIS. Performed By: #### H STROPN #### [facility] [address] [place] [address] [address] Madison Barnhart XR CHEST 1 Von [...] by: LEEROY VILLA Date: 2023-04-29 11:45 Normal [facility] CREATININE CLEARon 2 CREA CLEARANCE 79.62 ml/min Normal 75.00-115.00 [facility] Comment on above: Result Comment: Prev iously reported as: 1.74 On 06/11/2022 10:36 By [email or web address] Performed By: #### C REACL #### [facility] [address] [place] [address] Dr. Madison Barnhart CREA, 24 HR UR 1359.90 mg/24 hr Normal 800.00-1, 800. 00 [facility] Comment on above: Performed By: #### C REACL #### [facility] [address] [place] [address] Dr. Madison Barnhart Creatinine [Mass/Vol] 1.08 mg/dL Critically high 0.55-1.02 [facility] Comment on above: Result Comment: repe ated Previously reported as: 49.42 On 06/11/2022 10:36 By [email or web address] Performed By: #### C REACL #### [facility] [address] [place] [address] Dr. Madison Barnhart UR TOT VOL 3000 ml/24 HR Normal The [facility] Comment on above: Performed By: #### C REACL #### [facility] [address] [place] [address] Dr. Madison Barnhart URINE CREAT 45.33 mg/dL Normal 20.00-300.00 [facility] Comment on above: Performed By: #### C REACL #### [facility] [address] [place] [address] Dr. Madison Barnhart ECHOCARDIO M/2D COMPLETEon 0 06-11-2022 ECHOCARDIO M/2D COMPLETE Patient: LILIANA VÁZQUEZ Exam Date: 06/11/2022 : 1960 Gender:F Ordering : DR DEDE MICHAELS . Admission #: [id number] Family : Order #: [id number] CLICK HERE TO VIEW EXAM ECHOCARDIOGRAM REPORT [...] M.D. on 06/11/2022 at 16:26 Normal [facility] PROTEIN 24HR URINEon 022 T PROT, 24 HR UR 123.0 mg/24 hr Normal <=149.1 [facility] Comment on above: Performed By: #### P ROT24U ####[facility] [address]vuscp[address] [place], [place] [address]DiStefania Barnhart UR PROT 4.1 mg/dL Normal <=11.9 [facility] Comment on above: Performed By: #### P ROT24U ####[facility] [address] [place] [address]Dr. Madison Barnhart UR TOT VOL 3000 ml/24 HR Normal [facility] Comment on above: Performed By: #### P ROT24U ####[facility] [address] [place] [address]DrStefania Barnhart INSULINon 06-05-2022 Insulin 10.2 uIU/mL Normal 2.6-24.9 [facility] Comment on above: Performed By: #### I NSULIN ####[facility] [address] [place] [address]Dr. Madison Barnhart BNPon 06-02-2022 Natriuretic peptide B (Bld) [Mass/Vol] 215.0 pg/mL Normal <=900.0 [facility] Comment on above: Performed By: #### L IPID, T7, TSH, BNP, CMP #### [facility] [address] [place] [address] [address] Madison Barnhart CBC AUTO DIFFon 06-02-2022 BASO # 0.0 103/ul Normal 0.0-0.1 [facility] Comment on above: Performed By: #### C BC ####[facility] [address]fhfwbxho[address] [place] [address]DrStefania Barnhart Basophils/100 WBC (Bld) 0.7 % Normal 0.2-2.0 [facility] Comment on above: Performed By: #### C BC ####[facility] [address] [place], [place] [address]DrStefania Barnhart EO # 0.1 103/ul Normal 0.0-0.7 [facility] Comment on above: Performed By: #### C BC ####[facility] [address]xniht[address] [place], [place] [address]DrStefania Barnhart Eosinophils/100 WBC (Bld) 1.5 % Normal 0.9-7.0 [facility] Comment on above: Performed By: #### C BC ####[facility] [address]tris[address] [place], [place] [address]DrStefania Barnhart Erythrocyte distribution width (RBC) [Ratio] 13.2 % Normal 11.0-15.0 [facility] Comment on above: Performed By: #### C BC ####[facility] [address]vs[address] [place] [address]Dr. Madison Barnhart Hematocrit (Bld) [Volume fraction] 42.2 % Normal 36.0-48.0 [facility] Comment on above: Performed By: #### C BC ####[facility] [address] [place], [place] [address]Dr. Madison Barnhart Hemoglobin (Bld) [Mass/Vol] 13.7 g/dL Normal 12.0-16.0 [facility] Comment on above: Performed By: #### C BC ####[facility] [address]cf[address] [place], [place] [address]Dr. Madison Barnhart IG # 0.04 10e3/ul Critically high 0.00-0.03 [facility] Comment on above: Performed By: #### C BC ####[facility] [address]cyriwxls[address] [place], [place] [address]Dr. Madison Barnhart IG % 0.7 % Critically high 0.0-0.5 [facility] Comment on above: Performed By: #### C BC ####[facility] [address] [place], [place] [address]Dr. Madison Barnhart LYMPH # 1.3 103/ul Normal 1.2-3.8 [facility] Comment on above: Performed By: #### C BC ####[facility] [address]xeqrvcaqu[address] [place], [place] [address]Dr. Madison Barnhart Lymphocytes/100 WBC (Bld) 23.3 % Normal 20.5-60.0 [facility] Comment on above: Performed By: #### C BC ####[facility] [address] [place], [place] [address]Dr. Madison Barnhart MANUAL DIFF REQ NO Normal [facility] Comment on above: Performed By: #### C BC ####[facility] [address]vr[address] [place], [place] [address]Dr. Madison Obey MCH (RBC) [Entitic mass] 30.6 pg Normal 26.7-34.0 [facility] Comment on above: Performed By: #### C BC ####[facility] [address]irf[address] [place] [address]Dr. Madison Barnhart MCHC (RBC) [Mass/Vol] 32.5 g/dL Normal 29.9-35.2 [facility] Comment on above: Performed By: #### C BC ####[facility] [address] [place], [place] [address]Dr. Madison Obey MCV (RBC) [Entitic vol] 94.2 fL Normal 81.0-99.0 [facility] Comment on above: Performed By: #### C BC ####[facility] [address]lphxgni[address] [place], [place] [address]Dr. Madison Barnhart MONO # 0.5 103/ul Normal 0.3-0.8 [facility] Comment on above: Performed By: #### C BC ####[facility] [address]airt[address] [place], [place] [address]Dr. Madison Barnhart Monocytes/100 WBC (Bld) 8.8 % Normal 1.7-12.0 [facility] Comment on above: Performed By: #### C BC ####[facility] [address] [place], [place] [address]Dr. Lamarhilario Obey NEUT # 3.5 103/ul Normal 1.4-6.5 [facility] Comment on above: Performed By: #### C BC ####[facility] S[address]ztqaipzi[address] [place], [place] [address]Dr. Madison Barnhart Neutrophils/100 WBC (Bld) 65.0 % Normal 43.0-75.0 [facility] Comment on above: Performed By: #### C BC ####[facility] [address]clim[address] [place], [place] [address]Dr. Madison Barnhart Platelet mean volume (Bld) [Entitic vol] 9.0 fL Critically low 9.5-13.5 [facility] Comment on above: Performed By: #### C BC ####[facility] [address] [place] [address]Dr. Madison Barnhart PLT 245 103/ul Normal 150-450 [facility] Comment on above: Performed By: #### C BC ####[facility] [address]jaxj[address] [place] [address]Dr. Madison Barnhart RBC 4.48 106/ul Normal 4.20-5.40 [facility] Comment on above: Performed By: #### C BC ####[facility] [address]vs[address] [place] [address]Dr. Madison Barnhart WBC 5.4 103/ul Normal 4.0-11.0 [facility] Comment on above: Performed By: #### C BC ####[facility] [address] [place] [address]Dr. Madison Barnhart FREE THYROXINE INDEX T7on FTI 2.26 Normal 1.30-4.50 [facility] Comment on above: Performed By: #### L IPID, T7, TSH, BNP, CMP #### [facility] [address] [place] [address] [address] Madison Barnhart T3U 31.0 % Normal 30.0-39.0 [facility] Comment on above: Performed By: #### L IPID, T7, TSH, BNP, CMP #### [facility] [address] [address] [address] Madison Barnhart T4 [Mass/Vol] 7.30 ug/dL Normal 4.80-13.90 [facility] Comment on above: Performed By: #### L IPID, T7, TSH, BNP, CMP #### [facility] [address] [address] [address] Madison Barnhart GLYCOHEMOGLOBIN A1Con 2021 ADA RECOMMENDATION SEE BELOW Normal [facility] Comment on above: Result Comment: ADA RECOMMENDED LIMIT 4.0 - 6.0 ADA THERAPEUTIC TARGET < 7.0 ACTION SUGGESTED > 7.0 Performed By: #### A 1C ####[facility] [address] [address]Dr[address] Madison Barnhart Glucose [Mass/Vol] 117 mg/dL Normal [facility] Comment on above: Performed By: #### A 1C ####[facility] [address] [place], [place] [address]ToDr. Madison Barnhart HbA1c (Bld) [Mass fraction] 5.7 % Normal 4.5-6.2 [facility] Comment on above: Performed By: #### A 1C ####[facility] [address] [place], [place] [address]EtDr. Madison Barnhart IRONon 06-02-2022 Iron [Mass/Vol] 85.0 ug/dL Normal 50.0-170.0 [facility] Comment on above: Performed By: #### I JACK ####[facility] [address] [id number] Barnhart LIPID PROFILEon 06-02-2022 CHOL-HDL RATIO NORM SEE BELOW Normal [facility] Comment on above: Result Comment: 3.3 - 4.4 LOW RISK 4.4 - 7.1 AVERAGE RISK 7.1 - 11.0 MODERATE RISK >11.0 HIGH RISK Performed By: #### L IPID, T7, TSH, BNP, CMP #### [facility] [address] [address] [address] Madison Barnhart Cholesterol [Mass/Vol] 238 mg/dL Critically high <=200 [facility] Comment on above: Performed By: #### L IPID, T7, TSH, BNP, CMP #### [facility] [address] [address] [address] Madison Barnhart Cholesterol in HDL [Mass/Vol] 90 mg/dL Critically high 40-60 [facility] Comment on above: Performed By: #### L IPID, T7, TSH, BNP, CMP #### [facility] [address] [address] [address] Madison Barnhart Cholesterol in LDL [Mass/Vol] 132.4 mg/dL Normal [facility] Comment on above: Performed By: #### L IPID, T7, TSH, BNP, CMP #### [facility] [address] [address] [address] Madison Barnhart Cholesterol.total/Chol esterol in HDL [Mass ratio] 2.6 {ratio} Normal [facility] Comment on above: Performed By: #### L IPID, T7, TSH, BNP, CMP #### [facility] [address] [place] [address] Dr. Madison Barnhart HDL NORMAL > or = 60 mg/dl - LO W CARDIOVASCULAR RISK <40 mg/dl - HIGH CARDIOVASCULAR RISK Normal [facility] Comment on above: Performed By: #### L IPID, T7, TSH, BNP, CMP #### [facility] [address] [place] [address] Dr. Madison Barnhart LDL CALC NORMAL SEE BELOW Normal [facility] Comment on above: Result Comment: <100 mg/dl OPTIMAL 100 - 129 mg/dl NEAR OR ABOVE OPTIMAL 130 - 159 mg/dl BORDERLINE HIGH 160 - 189 mg/dl HIGH >190 mg/dl VERY HIGH Performed By: #### L IPID, T7, TSH, BNP, CMP #### [facility] [address] [place] [address] Dr. Madison Barnhatr Triglyceride [Mass/Vol] 78 mg/dL Normal <=150 [facility] Comment on above: Performed By: #### L IPID, T7, TSH, BNP, CMP #### [facility] [address] [place] [address] Dr. Madison Barnhart VLDL CALC 15.6 mg/dL Normal [facility] Comment on above: Performed By: #### L IPID, T7, TSH, BNP, CMP #### [facility] [address] [place] [address] Dr. Madison Barnhart PROF 14(COMP METB)on 022 Albumin [Mass/Vol] 3.5 g/dL Normal 3.4-5.0 [facility] Comment on above: Performed By: #### L IPID, T7, TSH, BNP, CMP #### [facility] [address] [place] [address] Dr. Madison Barnhart Albumin/Globulin [Mass ratio] 1.1 {ratio} Normal [facility] Comment on above: Performed By: #### L IPID, T7, TSH, BNP, CMP #### [facility] [address] [place] [address] Dr. Madison Barnhart ALP [Catalytic activity/Vol] 92 U/L Normal 46-116 [facility] Comment on above: Performed By: #### L IPID, T7, TSH, BNP, CMP #### [facility] [address] [place] [address] Dr. Madison Barnhart ALT [Catalytic activity/Vol] 28 U/L Normal 14-59 [facility] Comment on above: Performed By: #### L IPID, T7, TSH, BNP, CMP #### [facility] [address] [place] [address] Dr. Madison Barnhart Anion gap [Moles/Vol] 10.6 mmol/L Normal [facility] Comment on above: Performed By: #### L IPID, T7, TSH, BNP, CMP #### [facility] [address] [place] [address] Dr. Madison Barnhart AST [Catalytic activity/Vol] 17 U/L Normal 15-37 [facility] Comment on above: Performed By: #### L IPID, T7, TSH, BNP, CMP #### [facility] [address] [place] [address] Dr. Madison Barnhart Bilirubin [Mass/Vol] 0.5 mg/dL Normal 0.2-1.0 [facility] Comment on above: Performed By: #### L IPID, T7, TSH, BNP, CMP #### [facility] [address] [place] [address] Dr. Madison Barnhart Calcium [Mass/Vol] 8.4 mg/dL Critically low 8.5-10.1 [facility] Comment on above: Performed By: #### L IPID, T7, TSH, BNP, CMP #### [facility] [address] [place] [address] Dr. Madison Barnhart Chloride [Moles/Vol] 105 mmol/L Normal 98-107 [facility] Comment on above: Performed By: #### L IPID, T7, TSH, BNP, CMP #### [facility] [address] [place] [address] Dr. Madison Barnhart CO2 [Moles/Vol] 28.3 mmol/L Normal 21.0-32.0 [facility] Comment on above: Performed By: #### L IPID, T7, TSH, BNP, CMP #### [facility] [address] [address] [address] Madison Barnhart Creatinine [Mass/Vol] 1.08 mg/dL Critically high 0.55-1.02 [facility] Comment on above: Performed By: #### L IPID, T7, TSH, BNP, CMP #### [facility] [address] [address] [address] Madison Barnhart EGFR-AF ITALIAN >60 Normal >=60 [facility] Comment on above: Performed By: #### L IPID, T7, TSH, BNP, CMP #### [facility] [address] [address] [address] Madison Barnhart EGFR-NON AF ITALIAN 52 mL/min/1.73m2 Critically low >=60 [facility] Comment on above: Performed By: #### L IPID, T7, TSH, BNP, CMP #### [facility] [address] [address] [address] Madison Barnhart Globulin (S) [Mass/Vol] 3.3 g/dL Normal [facility] Comment on above: Performed By: #### L IPID, T7, TSH, BNP, CMP #### [facility] [address] [address] [address] Madison Barnhart Glucose [Mass/Vol] 99 mg/dL Normal 74-106 [facility] Comment on above: Performed By: #### L IPID, T7, TSH, BNP, CMP #### [facility] [address] [address] [address] Madison Barnhart Potassium [Moles/Vol] 3.9 mmol/L Normal 3.5-5.1 [facility] Comment on above: Performed By: #### L IPID, T7, TSH, BNP, CMP #### [facility] [address] [address] [address] Madison Barnhart Protein [Mass/Vol] 6.8 g/dL Normal 6.4-8.2 [facility] Comment on above: Performed By: #### L IPID, T7, TSH, BNP, CMP #### [facility] [address] [address] [address] Madison Barnhart Sodium [Moles/Vol] 140 mmol/L Normal 136-145 [facility] Comment on above: Performed By: #### L IPID, T7, TSH, BNP, CMP #### [facility] [address] [address] [address] Madison Barnhart Urea nitrogen [Mass/Vol] 22.0 mg/dL Critically high 7.0-18.0 [facility] Comment on above: Performed By: #### L IPID, T7, TSH, BNP, CMP #### [facility] [address] [place] [address] Dr. Madison Barnhart Urea nitrogen/Creatinine [Mass ratio] 20.4 mg/mg Normal [facility] Comment on above: Performed By: #### L IPID, T7, TSH, BNP, CMP #### [facility] [address] [address] [address] Madison Barnhart TSHon 06-02-2022 TSH 1.046 uIU/mL Normal 0.358-3.740 [facility] Comment on above: Performed By: #### L IPID, T7, TSH, BNP, CMP #### [facility] [address] [place] [address] Dr. Madison Barnhart Ambulatory Clinical Summaryo n 08-09-2020 Ambulatory Clinical Summary {[id number] Normal [facility] Coding Summary.on 10-27-2019 Coding Summary. CODING DATE: 10/27/2019 FINAL [facility] STATUS: Home (Routine DC) PAYOR: Ivana APC [...] Christa Marcus Date Saved: 10/27/2019 03:40 pm [facility] Vital Signs Date Time Vital Sign Value Performing Clinician Facility 08-16-2023 14:00-0400 Body height 172.72 cm Markell Odell Other [facility] [employer] Other 08-16-2023 14:00-0400 Body mass index (BMI) [Ratio] 25.39 kg/m2 Markell Odell Other [employer] Other 08-16-2023 14:00-0400 Body weight 75.75 kg Markell Odell Other [employer] Other 08-16-2023 14:00-0400 Diastolic blood pressure 78 mm[Hg] Markell Odell Other [employer] Other 08-16-2023 14:00-0400 Systolic blood pressure 138 mm[Hg] Markell Odell Other [employer] Other 07-09-2023 14:02-0400 Diastolic blood pressure 67 mm[Hg] MD Dede Michaels Work Phone: [facility] 07-09-2023 14:02-0400 Heart rate 55 /min MD Dede Michaels Work Phone: [facility] 07-09-2023 14:02-0400 Respiratory rate 16 /min MD Dede Michaels Work Phone: [facility] 07-09-2023 14:02-0400 SaO2% (BldA) [Mass fraction] 98 % MD Dede Michaels Work Phone: [facility] 07-09-2023 14:02-0400 Systolic blood pressure 128 mm[Hg] MD Dede Michaels Work Phone: [facility] 07-09-2023 12:16040 Body height 172.72 cm MD Dede Michaels Work Phone: [facility] 07-09-2023 12:16040 Body temperature 97.8 [degF] MD Dede Michaels Work Phone: [facility] 07-09-2023 12:16040 Body weight 77.11 kg MD Dede Michaels Work Phone: [facility] Encounters Encounter Date Encounter Type Care Provider Facility Start: 12-20-2023 End: 12-20-2023 ambulatory [facility] Start: 08-20-2023 End: 08-20-2023 ambulatory Markell Odell Other [facility] [employer] Other Start: 08-20-2023 Telephone encounter Markell Valerio [facility] Start: 08-16-2023 End: 08-16-2023 ambulatory Markell Odell Other [facility] [employer] Other Start: 08-16-2023 Office outpatient visit 15 minutes Markell RE[facility] Start: 08-09-2023 End: 08-12-2023 ambulatory [facility] Start: 07-09-2023 End: 07-09-2023 ambulatory Oziel Whalen Facility:[facility] Start: 07-09-2023 End: 07-09-2023 Admission to same day surgery center MD Dede Michaels Work Phone: [facility] Work Phone: Start: 07-09-2023 End: 07-09-2023 ambulatory MD Dede Michaels Work Phone: [facility] Work Phone: Start: 06-25-2023 End: 06-25-2023 ambulatory ANGELLA [facility] Start: 06-07-2023 End: 06-07-2023 ambulatory [facility] Start: 04-29-2023 End: 04-29-2023 ambulatory PAYAL FRANCO . [facility] Work Phone: Start: 04-29-2023 End: 04-29-2023 Departed Referred MD Payal Franco Work Phone: [facility] Work Phone: Start: 06-11-2022 End: 06-12-[address] DEDE MICHAELS . Facility: Start: 06-02-2022 End: 06-03-[address] DEDE MICHAELS . Facility: Procedures Date Procedure Procedure Detail Performing Clinician Start: 07-09-2023 Esophagogastroduodenoscopy MD Dede Michaels Work Phone: Plan of Treatment Date Care Activity Detail Author Start: 07-09-2023 [facility] Patient Education Hiatal Hernia (DC) [facility] Work Phone: Payers Date Payer Category Payer Self-pay [id number] 2023 Unknown [id number] [facility] [id number] 1960 Unknown [id number] [id number] [id number] 1960 Unknown [id number] 2.16.84 [id number] 1960 Unknown [id number] 2.16.84 [id number] 1958 Unknown [id number] Unknown [place] BC/BS [id number] Unknown [id number] 2.16.8 [id number] Unknown [id number] 2.16.8 [id number] Social History Date Type Detail Facility Tobacco smoking status NHIS Unknown if ever smoked [facility] Work Phone: Start: 1960 Sex Assigned At Female F [facility] Start: 07-09-2023 Tobacco smoking status NHIS Never smoked tobacco (finding) [facility] Sex Assigned At Sex Assigned At Bir th [employer] Other Goals Date Patient Goal Desired Activity /State Clinical Notes 06-05-2022 to 12-20-2023 Note Date & Type Note Facility 12-20-2023 Note Patient being seen v ia telemedicine for bradycardia s/p thyroidectomy. Last night HR was running 47-49. Review of Systems All other systems reviewed and are negative. [facility] 08-20-2023 Evaluation note Encounter Date Diagnosis Assessment Notes Aug, Hiatal hernia (ICD-10 - K44.9) [employer] Other 09-15-2023 Evaluation note* Encounter Date Diagnosis [...] her bed at night RTO 3 months [employer] Other 09-08-2023 NoteCardiology Clinic Note Chief Complaint: follow up [...] of Abnormal ECG, Arrhythmia, and Atrial fibrillation ([facility] Surgical History She has no past surgical [...] Patient verbalizes understanding (more content not included)... [facility]09-08-2023 NotePatient here for 2 mo follow up. She started Eliquis. Metoprolol was decreased at last visit. She is doing well, denies chest pain and palpitations. Denies bleeding on Eliquis.[facility]08-08-2023 Procedure note [facility]07-25-2023 NoteCardiology Clinic Note Chief Complaint: follow up [...] of Abnormal ECG, Arrhythmia, and Atrial fibrillation (CMS/HCC). Surgical History She has no past surgical [...] was previously not anticoagulated because of low GBH3VL3-UUXq score. However, after further review of her chart, it appears that Years ago, she had an episode that was concerning for CVA versus TIA. MRI did not demonstrate definite evidence of infarct. As such, her TLF3LC9-SNXf score is actually 4. I discussed with patient need for anticoagulation. She preferred to proceed with 30-day event monitor. Patient has not had a documented atrial fibrillation on ai (more content not included)...[facility]07-25-2023 NotePatient here to discuss abnormal stress test. Had normal echo, and is still wearing 30 day event monitor.[facility]07-07-2023 Note New patient here to re-establish care. She recently presented to [facility] ED for chest pressure and SOB. She was treated for bronchitis at that time. SUMMERS and palpitations have been worsening lately. Review of Systems Cardiovascular: Positive for chest pain (pressure type), dyspnea on exertion and palpitations. All other systems reviewed and are negative.[facility] 06-07-2023 NoteCardiology Clinic Note Chief Complaint: new patient [...] of Abnormal ECG, Arrhythmia, and Atrial fibrillation (CMS/HCC). Surgical History She has no past surgical [...] was previously not anticoagulated because of low FQI9DR0-TIFr score. However, after further review of her chart, it appears that Years ago, she had an episode that was concerning for CVA versus TIA. MRI did not demonstrate definite evidence of infarct. As such, her LBZ2NF1-XKWa score is actually 4. I discussed with [...] plan. -Patient was educat (more content not included)...[facility]07-05-2022 NoteEXAMINATION: CTA CHEST WO W CON HISTORY: [...] Electronically authenticated by: ANDREW RODRIGUEZ Date: 2022-06-05 07:54[facility] HospitalEvaluation noteNo assessment information availableLouis [facility] Work Phone: History and physical note Author Oziel Whalen [facility] July 09, 2023 1:21pm Note Date/Time July 09, 2023 1:2 1pm [facility] [address] [place] [address] Gastroenterology H&P Signed Patient: Liliana Vázquez MR# : [id number] : 1960 Acct:[id number] Age/Sex: 63 / F Adm Date: 3 Loc: Room: Type: [facility] Attending Dr: Oziel Whalen MD Copies to: [...] the procedure. Oziel Whalen MD Documented By: Ozile Whalen MD 07/09/23 1320 Signed By: <Electronically signed by Oziel Whalen MD> 07/09/23 1321 [facility] Work Phone: History general Narrative - Reported* Type Description Date Medical History Hyperthyroidism Medical History high blood pressure Medical History Atrial fibrillation [facility] [employer] Other Hospital Discharge instructions Additional Instructions DISCHARGE [...] NOT operate machinery such as power tools, lawn mowers, snow blowers, sewing machines, etc. for 24 hours. - [...] problems. -Follow up with PCP. -Office number [phone].[facility] Work Phone: Summary Purpose Family History No Family History Records Found Relationship Condition Age at Onset Recorded Date/T stefan Not Specified Chronic obstructive pulmonary disease Un known father Hypertension Unknown Malignant neoplasm of prostate Unknown brother Malignant neoplasm of lung Unknown Advance Directives No Advanced Directives Records Found Advance Directive Response Recorded Date/ Time Advance Directives No December 27, 2017 4:31pm Chief Complaint and Reason for Visit Chief Complaint Shortness of Breath Gastroesophagitis w/o Reflux Disease, Gastritis Additional Source Comments INFORMATION SOURCE (unrecogn ized section and content) DATE CREATED AUTHOR 08/08/2020 [facility] DATE CREATED AUTHOR AUTHOR'S ORGANIZ ATION 05/11/2023 [facility] DATE CREATED AUTHOR AUTHOR'S ORGANIZ ATION 07/14/2023 [facility] DATE CREATED AUTHOR AUTHOR'S ORGANIZ ATION 12/21/2023 [facility] Care Teams (unrecognized sec tion and content) Team Status: Inactive Member Role Status Dates Payal Franco MD Attending Provider Active Team Status: Active Member Role Status Dates Dede Michaels MD [...] BE BASED ON THE PRIMARY CLINICAL RECORDS. [facility]. provides no warranty or guarantee of the accuracy or completeness of information in this document.
--- NOTE | 2023-12-27 13:30 | MM_ITS ---
Patient Name: KAMAR DE LA TORRE MR#: [id number] : 1960 Exam Date: 12/27/2023 Ordering Doctor: DR Tristen Michaels . RADIOLOGY REPORT PROCEDURE: MM TOMOSYNTHESIS SCREENING BI COMPARISON: MG MAMM SCREEN CA W CAD, 10/27/2019. MG MAMM SCREEN 3D CA CAD, 12/28/2021. INDICATIONS: Screening Calculator Name NCI Breast Cancer Risk Assessment Tool 5 Year Breast Cancer Risk 2.10% Lifetime Breast Cancer Risk 9.40% Personal Breast Cancer No Personal Ovarian Cancer No Treatments None Family Cancers Father with prostate cancer at age 80; Brother with lung cancer at age 58. LOCATION: The [facility] BREAST COMPOSITION: Heterogeneously dense,which may obscure small masses. FINDINGS: DIAGNOSTIC CATEGORY 2--BENIGN FINDING. NO CHANGE FROM COMPARISON. Scattered benign-appearing calcifications are present. Scattered benign-appearing lymph nodes are present. RIGHT BREAST: No significant suspicious finding. Linear retroareolar densities, stable possibly dilated ducts LEFT BREAST: No significant suspicious finding. RECOMMENDATIONS: ROUTINE MAMMOGRAM AND CLINICAL EVALUATION IN 12 MONTHS. PLEASE NOTE: A NORMAL MAMMOGRAM DOES NOT EXCLUDE THE POSSIBILITY OF BREAST CANCER. A CLINICALLY SUSPICIOUS PALPABLE LUMP SHOULD BE BIOPSIED. Dictated by: Vishal Botello MD on 12/27/2023 at 13:40 Approved by: Vishal Botello MD on 12/27/2023 at 13:58
== END 2023-12-27 13:05 | disposition home or self-care (01) ==
LOC: MAMMO 13:04
PROVIDERS: PCP Family Medicine; Visit Provider Family Medicine
DX: Z12.31 Encounter for screening mammogram for malignant neoplasm of breast (principal); Z80.1 Family history of malignant neoplasm of trachea, bronchus and lung; Z80.42 Family history of malignant neoplasm of prostate
CPT/HCPCS: 77063; 77067

== ENCOUNTER 2024-01-27 11:37 | Outpatient (OUT) | payer OTHER, SELFPAY ==
--- OUTSIDE RECORDS SUMMARY | 2024-01-27 11:53 | XMS_ITS | CCD ---
Author Name Unknown Address [address] [place] [address] Organization [facility] Care Team Providers Care Mag[employer] Web Developer Name Role Phone MD Payal Franco Attending Provider [phone] DIAB ., PAYAL Admitting Unavailable DIAB ., [...] Unavailable MD Dede Michaels Primary Care Provider [phone] MD Oziel Whalen Attending Provider [phone] Oziel Whalen Admitting Unavailable Oziel Whalen Attending [...] source) bee venom Drug allergy (disorder) [facility] Repository (2 sources) venom-honey bee; Translations: [venom-honey bee] Allergy to substance 07-08-20 [facility] (2 sources) Sulfamethoxazole / Trimethoprim Drug Allergy upset stomach [place] [employer] Other Medications Current Medications Medication Drug Class(es) Dates Sig (Normalized) Sig (Original) [id number] 200 actuat albuterol 0.09 mg/actuat metered dose [...] 06-13-2022 Chronic Other aftercare (1 source) Other fdc (current) drug therapy; Translations: [OTH RETIREMENT CURRENT DRUG THERAPY] Onset: 04-30-2023 Episodic Other [...] Range Facility Office Visiton 08-09-2023 Follow-up visit [id number] Phil Vázquezquegamal Willis 1960 F Date Provider Department Center 08/09/2023 3848-ANGELLA JI Family History Problem Relation Age of Onset Stroke Mother Stroke Father Stroke Sister Family Status - Relation Status Age at Mother Father Sister Level of Service:65516 [place] OFFICE/OUTPATIENT ESTABLISHED MOD MDM 30-39 MIN Normal [facility] Neeraj 07-09-2023 L - -------- Specimen: [id number] Received: 07/09/23 Status: MITCHELL Antoine Num: [id number] Spec Type: Surgical Subm Dr: Oziel Whalen MD Tissues: A Esophagus Biopsy (ESOPHAGUS BX) Procedures: HE/2, Gross/Micro L4 -------- Age/ Patient Sex Location Account Attending Physician -------- Liliana Vázquez 63/F [id number] Oziel Whalen MD -------- SPEC NUM: [id number] RECD: 07/09/23 STATUS: MITCHELL ANTOINE NUM: [id number] RUSTY: 07/09/[address] [facility] [address]: Oziel Whalen MD ENTERED: 07/09/[address] [facility] [address]: OSIEL TYPE: Surgical [...] microscopic examination confirms the diagnosis. -------- Specimen: [id number] Received: 07/09/23 Status: MITCHELL Antoine Num: [id number] Spec Type: Surgical Subm Dr: Oziel Whalen MD Tissues: A Esophagus Biopsy (ESOPHAGUS BX) Procedures: Michael MARTIN/Felton L4 -------- Patient: Liliana Vázquez [id number] (Continued) -------- Specimen: [id number] Received: 07/09/23 (Continued) Signed (signature on file) Jaylen Sauceda MD 07/11/23 1157 -------- Specimen: [id number] Received: 07/09/23 Status: MITCHELL Antoine Num: [id number] Spec Type: Surgical Subm Dr: Oziel Whalen MD Tissues: A Esophagus Biopsy (ESOPHAGUS BX) Procedures: Michael MARTIN/Felton L4 -------- Patient: Liliana Vázquez [id number] (Continued) -------- Specimen: [id number] Received: 07/09/23 (Continued) CPT Codes 82111 -------- -------- Specimen: [id number] Received: 07/09/23 Status: MITCHELL Antoine Num: [id number] Spec Type: Surgical Subm Dr: Oziel Whalen MD Tissues: A Esophagus Biopsy (ESOPHAGUS BX) Procedures: TUSHAR/2, Gross/Micro L4 -------- Patient: Liliana Vázquez [id number] (Continued) -------- Signed (signature on file) Jaylen Sauceda MD 07/11/23 1157 [facility] 36on 07-02-2023 36 Patient's event monitor showed 19 mins of afib this morning. Strip was emailed to Dr. Ji who recommended she start Eliquis 5mg bid. I then spoke with patient who agreed to start it. Rx was sent to her pharmacy. Normal [facility] Office Visiton 06-25-2023 Follow-up visit [id number] Liliana Vázquez S 1960 F Date Provider Department [facility] No family history on file Level of Service:38967 [place] OFFICE/OUTPATIENT ESTABLISHED MOD MDM 30-39 MIN Normal [facility] Office Visiton 06-07-2023 Follow-up visit [id number] Liliana Vázquez 1960 F Date Provider Department Center 06/07/2023 ANGELLA GRIER [facility] No family history on file Level of Service:09723 [place] OFFICE/OUTPATIENT NEW MODERATE MDM 45-59 MINUTES [facility] BNPon 04-29-2023 Natriuretic peptide B (Bld) [Mass/Vol] 181.0 pg/mL Normal <=900.0 [facility] Comment on above: Performed By: #### B CHAIRMAN PRESIDENT AND CHIEF EXECUTIVE OFFICER, CMP, CMADM ####[facility] [address] [place], [place] [address]Dr. Madison Barnhart CARDIAC NAVA ADMITon 023 CK [Catalytic activity/Vol] 78 U/L Normal 26-192 [facility] Comment on above: Performed By: #### B CHAIRMAN PRESIDENT AND CHIEF EXECUTIVE OFFICER, CMP, CMADM ####[facility] [address] [place] [address]Dr. Madison Barnhart CK.MB [Mass/Vol] ng/mL Normal <=3.60 [facility] Comment on above: Performed By: #### B CHAIRMAN PRESIDENT AND CHIEF EXECUTIVE OFFICER, CMP, CMADM ####[facility] [address] [place] [address]Dr. Madison Barnhart HSTROP 5.2 pg/mL Normal 4.0-51.3 [facility] Comment on above: Result Comment: CUT- OFF POINTS HAVE BEEN ESTABLISHED BASED ON THE FOURTH UNIVERSAL DEFINITIONS OF MYOCARDIAL INFARCTION. THE UPPER REFERENCE LIMIT (URL) OF TROPONIN, DEFINED THE 99TH PERCENTILE OF cTnI DISTRIBUTION IN A REFERENCE POPULATION, HAS BEEN CONFIRMED THE DECISION THRESHOLD FOR SC DIAGNOSIS. Performed By: #### B CHAIRMAN PRESIDENT AND CHIEF EXECUTIVE OFFICER, CMP, CMADM ####[facility] [address] [place] [address]Dr. Madison Barnhart KG 72 ng/mL Normal 9-82 [facility] Comment on above: Performed By: #### B CHAIRMAN PRESIDENT AND CHIEF EXECUTIVE OFFICER, CMP, CMADM ####[facility] [address] [place] [address]Dr. Madison Barnhart CBC AUTO DIFFon 04-29-2023 BASO # 0.0 103/ul Normal 0.0-0.1 [facility] Comment on above: Performed By: #### C BC ####[facility] [address] [place] [id number]. Madison Obey Basophils/100 WBC (Bld) 0.3 % Normal 0.2-2.0 [facility] Comment on above: Performed By: #### C BC ####[facility] [address] [place] [address]Dr. Madison Obey EO # 0.1 103/ul Normal 0.0-0.7 [facility] Comment on above: Performed By: #### C BC ####[facility] [address] [place] [id number]. Madison Barnhart Eosinophils/100 WBC (Bld) 2.2 % Normal 0.9-7.0 [facility] Comment on above: Performed By: #### C BC ####[facility] [address] [place] [id number]. Madison Barnhart Erythrocyte distribution width (RBC) [Ratio] 13.1 % Normal 11.0-15.0 [facility] Comment on above: Performed By: #### C BC ####[facility] [address] [place], [place] [address]Dr. Madison Barnhart Hematocrit (Bld) [Volume fraction] 42.1 % Normal 36.0-48.0 [facility] Comment on above: Performed By: #### C BC ####[facility] [address] [place] [id number]. Madison Barnhart Hemoglobin (Bld) [Mass/Vol] 13.9 g/dL Normal 12.0-16.0 [facility] Comment on above: Performed By: #### C BC ####[facility] [address] [place] [id number]. Madison Barnhart IG # 0.04 10e3/ul Critically high 0.00-0.03 [facility] Comment on above: Performed By: #### C BC ####[facility] [address] [place] [address]Dr. Madison Barnhart IG % 0.7 % Critically high 0.0-0.5 [facility] Comment on above: Performed By: #### C BC ####[facility] [address] [place] [id number]. Madison Barnhart LYMPH # 0.5 103/ul Critically low 1.2-3.8 [facility] Comment on above: Performed By: #### C BC ####[facility] [address] [place] [id number]. Madison Barnhart Lymphocytes/100 WBC (Bld) 7.9 % Critically low 20.5-60.0 [facility] Comment on above: Performed By: #### C BC ####[facility] [address] [place] [id number]. Madison Barnhart MANUAL DIFF REQ NO Normal [facility] Comment on above: Performed By: #### C BC ####[facility] [address] [place] [phone]. Madison Barnhart MCH (RBC) [Entitic mass] 30.7 pg Normal 26.7-34.0 [facility] Comment on above: Performed By: #### C BC ####[facility] [address] [place], [place] [address]Dr. Madison Barnhart MCHC (RBC) [Mass/Vol] 33.0 g/dL Normal 29.9-35.2 [facility] Comment on above: Performed By: #### C BC ####[facility] [address] [place], [place] [address]Dr. Madison Obey MCV (RBC) [Entitic vol] 92.9 fL Normal 81.0-99.0 [facility] Comment on above: Performed By: #### C BC ####[facility] [address] [place] [address]Dr. Madison Barnhart MONO # 0.8 103/ul Normal 0.3-0.8 [facility] Comment on above: Performed By: #### C BC ####[facility] [address] [place] [address]Dr. Lamarhilario Barnhart Monocytes/100 WBC (Bld) 13.1 % Critically high 1.7-12.0 [facility] Comment on above: Performed By: #### C BC ####[facility] [address] [place], [place] [address]Dr. Madison Barnhart NEUT # 4.6 103/ul Normal 1.4-6.5 [facility] Comment on above: Performed By: #### C BC ####[facility] T[address] [place], [place] [address]Dr. Lamarhilario Barnhart Neutrophils/100 WBC (Bld) 75.8 % Critically high 43.0-75.0 [facility] Comment on above: Performed By: #### C BC ####[facility] [address] [place], [place] [address]Gc. Madison Barnhart Platelet mean volume (Bld) [Entitic vol] 9.4 fL Critically low 9.5-13.5 [facility] Comment on above: Performed By: #### C BC ####[facility] [address] [place], [place] [address]Mw. Madison Barnhart PLT 237 103/ul Normal 150-450 [facility] Comment on above: Performed By: #### C BC ####[facility] [address] [place], [place] [address]To. Madison Barnhart RBC 4.53 106/ul Normal 4.20-5.40 [facility] Comment on above: Performed By: #### C BC ####[facility] [address] [place], [place] [address]Xm. Madison Barnhart WBC 6.0 103/ul Normal 4.0-11.0 [facility] Comment on above: Performed By: #### C BC ####[facility] [address] [place], [place] [address]Sp. [address] CHEST W CONon 04-29-2023 [...] by: TL GARDINERU Date: 2023-04-29 14:57 Normal [facility] D-Dimer High Sensitivityon 0 04-29-2023 D-Dimer High Sensitivity < 200 Normal 0-243 [facility] Comment on above: Result Comment: The [...] patients due to co-morbid conditions. PERFORMED BY: [place] [address] PATHOLOGIST WORK TICKET DISTRIBUTOR HOWIE BARKER M.D. Performed By: #### D DIMER #### [address] No Panel InformationOrdered By: Payal Franco on 04-29-2023 D-Dimer Quantitative (PE/DVT) < 200 ng/mL 0-243 [facility] Comment on above: The reference range [...] Comment on above: Performed By: #### B CHAIRMAN PRESIDENT AND CHIEF EXECUTIVE OFFICER, CMP, CMADM ####[facility] [address] [place] [address]Dr. Lamarhilario Obey Albumin/Globulin [Mass ratio] 1.1 {ratio} Normal [facility] Comment on above: Performed By: #### B CHAIRMAN PRESIDENT AND CHIEF EXECUTIVE OFFICER, CMP, CMADM ####[facility] [address] [place] [address]Dr. Lamarhilario Obey ALP [Catalytic activity/Vol] 119 U/L Critically high 46-116 [facility] Comment on above: Performed By: #### B CHAIRMAN PRESIDENT AND CHIEF EXECUTIVE OFFICER, CMP, CMADM ####[facility] [address] [place], [place] [address]Dr. Madison Barnhart ALT [Catalytic activity/Vol] 32 U/L Normal 14-59 [facility] Comment on above: Performed By: #### B CHAIRMAN PRESIDENT AND CHIEF EXECUTIVE OFFICER, CMP, CMADM ####[facility] [address] [place], [place] [address]Dr. Madison Barnhart Anion gap [Moles/Vol] 10.4 mmol/L Normal [facility] Comment on above: Performed By: #### B CHAIRMAN PRESIDENT AND CHIEF EXECUTIVE OFFICER, CMP, CMADM ####[facility] [address] [place], [place] [address]Dr. Madison Barnhart AST [Catalytic activity/Vol] 21 U/L Normal 15-37 [facility] Comment on above: Performed By: #### B CHAIRMAN PRESIDENT AND CHIEF EXECUTIVE OFFICER, CMP, CMADM ####[facility] [address] [place], [place] [address]Dr. Madison Barnhart Bilirubin [Mass/Vol] 0.6 mg/dL Normal 0.2-1.0 [facility] Comment on above: Performed By: #### B CHAIRMAN PRESIDENT AND CHIEF EXECUTIVE OFFICER, CMP, CMADM ####[facility] [address] [place], [place] [address]Dr. Madison Barnhart Calcium [Mass/Vol] 8.2 mg/dL Critically low 8.5-10.1 [facility] Comment on above: Performed By: #### B CHAIRMAN PRESIDENT AND CHIEF EXECUTIVE OFFICER, CMP, CMADM ####[facility] [address] [place] [address]Dr. Madison Barnhart Chloride [Moles/Vol] 107 mmol/L Normal 98-107 [facility] Comment on above: Performed By: #### B CHAIRMAN PRESIDENT AND CHIEF EXECUTIVE OFFICER, CMP, CMADM ####[facility] [address] [place] [address]Dr. Madison Barnhart CO2 [Moles/Vol] 27.7 mmol/L Normal 21.0-32.0 [facility] Comment on above: Performed By: #### B CHAIRMAN PRESIDENT AND CHIEF EXECUTIVE OFFICER, CMP, CMADM ####[facility] [address] [place], [place] [address]Dr. Madison Barnhart Creatinine [Mass/Vol] 1.19 mg/dL Critically high 0.55-1.02 [facility] Comment on above: Performed By: #### B CHAIRMAN PRESIDENT AND CHIEF EXECUTIVE OFFICER, CMP, CMADM ####[facility] [address] [place], [place] [address]Dr. Madison Obey EGFR-AF GREEK 56 mL/min/1.73m2 Critically low >=60 [facility] Comment on above: Performed By: #### B CHAIRMAN PRESIDENT AND CHIEF EXECUTIVE OFFICER, CMP, CMADM ####[facility] [address] [place], [place] [address]Dr. Madison Obey EGFR-NON AF GREEK 46 mL/min/1.73m2 Critically low >=60 [facility] Comment on above: Performed By: #### B CHAIRMAN PRESIDENT AND CHIEF EXECUTIVE OFFICER, CMP, CMADM ####[facility] [address] [place], [place] [address]Dr. Madison Obey Globulin (S) [Mass/Vol] 3.0 g/dL Normal [facility] Comment on above: Performed By: #### B CHAIRMAN PRESIDENT AND CHIEF EXECUTIVE OFFICER, CMP, CMADM ####[facility] [address] [place], [place] [address]Dr. Madison Obey Glucose [Mass/Vol] 122 mg/dL Critically high 74-106 [facility] Comment on above: Performed By: #### B CHAIRMAN PRESIDENT AND CHIEF EXECUTIVE OFFICER, CMP, CMADM ####[facility] [address] [place] [address]Dr. Lamarhilario Barnhart Potassium [Moles/Vol] 4.1 mmol/L Normal 3.5-5.1 [facility] Comment on above: Performed By: #### B CHAIRMAN PRESIDENT AND CHIEF EXECUTIVE OFFICER, CMP, CMADM ####[facility] [address] [place] [address]Dr. Madison Barnhart Protein [Mass/Vol] 6.2 g/dL Critically low 6.4-8.2 [facility] Comment on above: Performed By: #### B CHAIRMAN PRESIDENT AND CHIEF EXECUTIVE OFFICER, CMP, CMADM ####[facility] [address] [place] [address]Dr. Madison Barnhart Sodium [Moles/Vol] 141 mmol/L Normal 136-145 [facility] Comment on above: Performed By: #### B CHAIRMAN PRESIDENT AND CHIEF EXECUTIVE OFFICER, CMP, CMADM ####[facility] [address] [place] [address]Dr. Madison Barnhart Urea nitrogen [Mass/Vol] 16.0 mg/dL Normal 7.0-18.0 [facility] Comment on above: Performed By: #### B CHAIRMAN PRESIDENT AND CHIEF EXECUTIVE OFFICER, CMP, CMADM ####[facility] [address] [place] [address]Dr. Madison Barnhart Urea nitrogen/Creatinine [Mass ratio] 13.4 mg/mg Normal [facility] Comment on above: Performed By: #### B CHAIRMAN PRESIDENT AND CHIEF EXECUTIVE OFFICER, CMP, CMADM ####[facility] [address] [place] [address]Dr. Madison Barnhart TROPONIN, HIGH SENSITIVITYon 04-29-2023 HSTROP 5.2 pg/mL Normal 4.0-51.3 [facility] Comment on above: Result Comment: CUT- OFF POINTS HAVE BEEN ESTABLISHED BASED ON THE FOURTH UNIVERSAL DEFINITIONS OF MYOCARDIAL INFARCTION. THE UPPER REFERENCE LIMIT (URL) OF TROPONIN, DEFINED THE 99TH PERCENTILE OF cTnI DISTRIBUTION IN A REFERENCE POPULATION, HAS BEEN CONFIRMED THE DECISION THRESHOLD FOR SC DIAGNOSIS. Performed By: #### H STROPN #### [facility] [address] [place] [address] [address] Madison Barnhart XR CHEST 1 Von [...] LEEROY VILLA Date: 2023-04-29 11:45 Normal [facility] CREATININE CLEARon 2 CREA CLEARANCE 79.62 ml/min Normal 75.00-115.00 [facility] Comment on above: Result Comment: Prev iously reported as: 1.74 On 06/11/2022 10:36 By [email or web address] Performed By: #### C REACL #### [facility] [address] [place] [address] Dr. Madison Barnhart CREA, 24 HR UR 1359.90 mg/24 hr Normal 800.00-1, 800. 00 [facility] Comment on above: Performed By: #### C REACL #### [facility] [address] [place] [address] Dr. Madison Barnhart Creatinine [Mass/Vol] 1.08 mg/dL Critically high 0.55-1.02 [facility] Comment on above: Result Comment: repe ated Previously reported as: 49.42 On 06/11/2022 10:36 By [email or web address] Performed By: #### C REACL #### [facility] [address] [place] [address] Dr. Madison Barnhart UR TOT VOL 3000 ml/24 HR Normal [facility] Comment on above: Performed By: #### C REACL #### [facility] [address] [place] [address] Dr. Madison Barnhart URINE CREAT 45.33 mg/dL Normal 20.00-300.00 [facility] Comment on above: Performed By: #### C REACL #### [facility] [address] [place] [address] Dr. Madison Barnhart ECHOCARDIO M/2D COMPLETEon 0 06-11-2022 ECHOCARDIO M/2D COMPLETE Patient: LILIANA VÁZQUEZ Exam Date: 06/11/2022 : 1960 Gender:F Ordering : DR DEDE MICHAELS . Admission #: [id number] Family : Order #: [id number] CLICK HERE TO VIEW EXAM ECHOCARDIOGRAM REPORT [...] M.D. on 06/11/2022 at 16:26 Normal [facility] PROTEIN 24HR URINEon 022 T PROT, 24 HR UR 123.0 mg/24 hr Normal <=149.1 [facility] Comment on above: Performed By: #### P ROT24U ####[facility] [address] [place], [place] [address]CwStefania Barnhart UR PROT 4.1 mg/dL Normal <=11.9 [facility] Comment on above: Performed By: #### P ROT24U ####[facility] [address] [place] [address]Dr. Madison Barnhart UR TOT VOL 3000 ml/24 HR Normal [facility] Comment on above: Performed By: #### P ROT24U ####[facility] [address] [place] [address]DrStefania Barnhart INSULINon 06-05-2022 Insulin 10.2 uIU/mL Normal 2.6-24.9 [facility] Comment on above: Performed By: #### I NSULIN ####[facility] [address] [place] [address]Dr. Madison Barnhart BNPon 06-02-2022 Natriuretic peptide B (Bld) [Mass/Vol] 215.0 pg/mL Normal <=900.0 [facility] Comment on above: Performed By: #### L IPID, T7, TSH, BNP, CMP #### [facility] [address] [address] [address] Madison Barnhart CBC AUTO DIFFon 06-02-2022 BASO # 0.0 103/ul Normal 0.0-0.1 [facility] Comment on above: Performed By: #### C BC ####[facility] [address] [place] [address]DrStefania Barnhart Basophils/100 WBC (Bld) 0.7 % Normal 0.2-2.0 [facility] Comment on above: Performed By: #### C BC ####[facility] [address] [place], [place] [address]DrStefania Barnhart EO # 0.1 103/ul Normal 0.0-0.7 [facility] Comment on above: Performed By: #### C BC ####[facility] [address] [place], [place] [address]DrStefania Barnhart Eosinophils/100 WBC (Bld) 1.5 % Normal 0.9-7.0 [facility] Comment on above: Performed By: #### C BC ####[facility] [address] [place], [place] [address]DrStefania Barnhart Erythrocyte distribution width (RBC) [Ratio] 13.2 % Normal 11.0-15.0 [facility] Comment on above: Performed By: #### C BC ####[facility] [address] [place] [address]Dr. Madison Barnhart Hematocrit (Bld) [Volume fraction] 42.2 % Normal 36.0-48.0 [facility] Comment on above: Performed By: #### C BC ####[facility] [address] [place], [place] [address]Dr. Madison Barnhart Hemoglobin (Bld) [Mass/Vol] 13.7 g/dL Normal 12.0-16.0 [facility] Comment on above: Performed By: #### C BC ####[facility] [address] [place], [place] [address]Dr. Madison Barnhart IG # 0.04 10e3/ul Critically high 0.00-0.03 [facility] Comment on above: Performed By: #### C BC ####[facility] [address] [place], [place] [address]Dr. Madison Barnhart IG % 0.7 % Critically high 0.0-0.5 [facility] Comment on above: Performed By: #### C BC ####[facility] [address] [place], [place] [address]Dr. Madison Barnhart LYMPH # 1.3 103/ul Normal 1.2-3.8 [facility] Comment on above: Performed By: #### C BC ####[facility] [address] [place], [place] [address]Dr. Madison Barnhart Lymphocytes/100 WBC (Bld) 23.3 % Normal 20.5-60.0 [facility] Comment on above: Performed By: #### C BC ####[facility] [address] [place], [place] [address]Dr. Madison Barnhart MANUAL DIFF REQ NO Normal [facility] Comment on above: Performed By: #### C BC ####[facility] [address]ts[address] [place], [place] [address]Dr. Madison Obey MCH (RBC) [Entitic mass] 30.6 pg Normal 26.7-34.0 [facility] Comment on above: Performed By: #### C BC ####[facility] [address] [place] [address]Dr. Madison Barnhart MCHC (RBC) [Mass/Vol] 32.5 g/dL Normal 29.9-35.2 [facility] Comment on above: Performed By: #### C BC ####[facility] [address] [place], [place] [address]Dr. Madison Obey MCV (RBC) [Entitic vol] 94.2 fL Normal 81.0-99.0 [facility] Comment on above: Performed By: #### C BC ####[facility] [address] [place], [place] [address]Dr. Madison Barnhart MONO # 0.5 103/ul Normal 0.3-0.8 [facility] Comment on above: Performed By: #### C BC ####[facility] [address] [place], [place] [address]Dr. Madison Barnhart Monocytes/100 WBC (Bld) 8.8 % Normal 1.7-12.0 [facility] Comment on above: Performed By: #### C BC ####[facility] [address] [place], [place] [address]Dr. Lamarhilario Obey NEUT # 3.5 103/ul Normal 1.4-6.5 [facility] Comment on above: Performed By: #### C BC ####[facility] [address] [place], [place] [address]Dr. Madison Barnhart Neutrophils/100 WBC (Bld) 65.0 % Normal 43.0-75.0 [facility] Comment on above: Performed By: #### C BC ####[facility] [address] [place], [place] [address]Dr. Madison Barnhart Platelet mean volume (Bld) [Entitic vol] 9.0 fL Critically low 9.5-13.5 [facility] Comment on above: Performed By: #### C BC ####[facility] [address] [id number]. Madison Barnhart PLT 245 103/ul Normal 150-450 [facility] Comment on above: Performed By: #### C BC ####[facility] [address] [address]Dr. Madison Barnhart RBC 4.48 106/ul Normal 4.20-5.40 [facility] Comment on above: Performed By: #### C BC ####[facility] [address] [id number]. Madison Barnhart WBC 5.4 103/ul Normal 4.0-11.0 [facility] Comment on above: Performed By: #### C BC ####[facility] [address] [address]Dr. Madison Barnhart FREE THYROXINE INDEX T7on FTI 2.26 Normal 1.30-4.50 [facility] Comment on above: Performed By: #### L IPID, T7, TSH, BNP, CMP #### [facility] [address] [address] [address] Madison Barnhart T3U 31.0 % Normal 30.0-39.0 [facility] Comment on above: Performed By: #### L IPID, T7, TSH, BNP, CMP #### [facility] [address] [address] [address] Madison Barnhart T4 [Mass/Vol] 7.30 ug/dL Normal 4.80-13.90 [facility] Comment on above: Performed By: #### L IPID, T7, TSH, BNP, CMP #### [facility] [address] [address] [address] Madison Barnhart GLYCOHEMOGLOBIN A1Con 2021 ADA RECOMMENDATION SEE BELOW Normal [facility] Comment on above: Result Comment: ADA RECOMMENDED LIMIT 4.0 - 6.0 ADA THERAPEUTIC TARGET < 7.0 ACTION SUGGESTED > 7.0 Performed By: #### A 1C ####[facility] [address] [address]Dr. Madison Barnhart Glucose [Mass/Vol] 117 mg/dL Normal [facility] Comment on above: Performed By: #### A 1C ####[facility] [address] [place], [place] [address]UrDr. Madison Barnhart HbA1c (Bld) [Mass fraction] 5.7 % Normal 4.5-6.2 [facility] Comment on above: Performed By: #### A 1C ####[facility] [address] [place], [place] [address]MuDr. Madison Barnhart IRONon 06-02-2022 Iron [Mass/Vol] 85.0 ug/dL Normal 50.0-170.0 [facility] Comment on above: Performed By: #### I JACK ####[facility] [address] [id number] Barnhart LIPID PROFILEon 06-02-2022 CHOL-HDL RATIO NORM SEE BELOW Normal [facility] Comment on above: Result Comment: 3.3 - 4.4 LOW RISK 4.4 - 7.1 AVERAGE RISK 7.1 - 11.0 MODERATE RISK >11.0 HIGH RISK Performed By: #### L IPID, T7, TSH, BNP, CMP #### [facility] [address] [address] [address] Madison Barnhart Cholesterol [Mass/Vol] 238 mg/dL Critically high <=200 [facility] Comment on above: Performed By: #### L IPID, T7, TSH, BNP, CMP #### [facility] [address] [address] [address] Madison Barnhart Cholesterol in HDL [Mass/Vol] 90 mg/dL Critically high 40-60 [facility] Comment on above: Performed By: #### L IPID, T7, TSH, BNP, CMP #### [facility] [address] [address] [address] Madison Barnhart Cholesterol in LDL [Mass/Vol] 132.4 mg/dL Normal [facility] Comment on above: Performed By: #### L IPID, T7, TSH, BNP, CMP #### [facility] [address] [address] [address] Madison Barnhart Cholesterol.total/Chol esterol in HDL [Mass ratio] 2.6 {ratio} Normal [facility] Comment on above: Performed By: #### L IPID, T7, TSH, BNP, CMP #### [facility] [address] [place] [address] Dr. Madison Barnhart HDL NORMAL > or = 60 mg/dl - LO W CARDIOVASCULAR RISK <40 mg/dl - HIGH CARDIOVASCULAR RISK Normal [facility] Comment on above: Performed By: #### L IPID, T7, TSH, BNP, CMP #### [facility] [address] [place] [address] Dr. Madison Barnhart LDL CALC NORMAL SEE BELOW Normal [facility] Comment on above: Result Comment: <100 mg/dl OPTIMAL 100 - 129 mg/dl NEAR OR ABOVE OPTIMAL 130 - 159 mg/dl BORDERLINE HIGH 160 - 189 mg/dl HIGH >190 mg/dl VERY HIGH Performed By: #### L IPID, T7, TSH, BNP, CMP #### [facility] [address] [place] [address] Dr. Madison Barnhart Triglyceride [Mass/Vol] 78 mg/dL Normal <=150 [facility] Comment on above: Performed By: #### L IPID, T7, TSH, BNP, CMP #### [facility] [address] [place] [address] Dr. Madison Barnhart VLDL CALC 15.6 mg/dL Normal [facility] Comment on above: Performed By: #### L IPID, T7, TSH, BNP, CMP #### [facility] [address] [place] [address] Dr. Madison Barnhart PROF 14(COMP METB)on 022 Albumin [Mass/Vol] 3.5 g/dL Normal 3.4-5.0 [facility] Comment on above: Performed By: #### L IPID, T7, TSH, BNP, CMP #### [facility] [address] [place] [address] Dr. Madison Barnhart Albumin/Globulin [Mass ratio] 1.1 {ratio} Normal [facility] Comment on above: Performed By: #### L IPID, T7, TSH, BNP, CMP #### [facility] [address] [place] [address] Dr. Madison Barnhart ALP [Catalytic activity/Vol] 92 U/L Normal 46-116 [facility] Comment on above: Performed By: #### L IPID, T7, TSH, BNP, CMP #### [facility] [address] [place] [address] Dr. Madison Barnhart ALT [Catalytic activity/Vol] 28 U/L Normal 14-59 [facility] Comment on above: Performed By: #### L IPID, T7, TSH, BNP, CMP #### [facility] [address] [place] [address] Dr. Madison Barnhart Anion gap [Moles/Vol] 10.6 mmol/L Normal [facility] Comment on above: Performed By: #### L IPID, T7, TSH, BNP, CMP #### [facility] [address] [place] [address] Dr. Madison Barnhart AST [Catalytic activity/Vol] 17 U/L Normal 15-37 [facility] Comment on above: Performed By: #### L IPID, T7, TSH, BNP, CMP #### [facility] [address] [place] [address] Dr. Madison Barnhart Bilirubin [Mass/Vol] 0.5 mg/dL Normal 0.2-1.0 [facility] Comment on above: Performed By: #### L IPID, T7, TSH, BNP, CMP #### [facility] [address] [place] [address] Dr. Madison Barnhart Calcium [Mass/Vol] 8.4 mg/dL Critically low 8.5-10.1 [facility] Comment on above: Performed By: #### L IPID, T7, TSH, BNP, CMP #### [facility] [address] [place] [address] Dr. Madison Barnhart Chloride [Moles/Vol] 105 mmol/L Normal 98-107 [facility] Comment on above: Performed By: #### L IPID, T7, TSH, BNP, CMP #### [facility] [address] [place] [address] Dr. Madison Barnhart CO2 [Moles/Vol] 28.3 mmol/L Normal 21.0-32.0 [facility] Comment on above: Performed By: #### L IPID, T7, TSH, BNP, CMP #### [facility] [address] [address] [address] Madison Barnhart Creatinine [Mass/Vol] 1.08 mg/dL Critically high 0.55-1.02 [facility] Comment on above: Performed By: #### L IPID, T7, TSH, BNP, CMP #### [facility] [address] [address] [address] Madison Barnhart EGFR-AF GREEK >60 Normal >=60 [facility] Comment on above: Performed By: #### L IPID, T7, TSH, BNP, CMP #### [facility] [address] [address] [address] Madison Barnhart EGFR-NON AF GREEK 52 mL/min/1.73m2 Critically low >=60 [facility] Comment on above: Performed By: #### L IPID, T7, TSH, BNP, CMP #### [facility] [address] [address] [address] Madison Barnhart Globulin (S) [Mass/Vol] 3.3 g/dL Normal [facility] Comment on above: Performed By: #### L IPID, T7, TSH, BNP, CMP #### [facility] [address] [address] [address] Madison Barnhart Glucose [Mass/Vol] 99 mg/dL Normal 74-106 [facility] Comment on above: Performed By: #### L IPID, T7, TSH, BNP, CMP #### [facility] [address] [address] [address] Madison Barnhart Potassium [Moles/Vol] 3.9 mmol/L Normal 3.5-5.1 [facility] Comment on above: Performed By: #### L IPID, T7, TSH, BNP, CMP #### [facility] [address] [address] [address] Madison Barnhart Protein [Mass/Vol] 6.8 g/dL Normal 6.4-8.2 [facility] Comment on above: Performed By: #### L IPID, T7, TSH, BNP, CMP #### [facility] [address] [address] [address] Madison Barnhart Sodium [Moles/Vol] 140 mmol/L Normal 136-145 [facility] Comment on above: Performed By: #### L IPID, T7, TSH, BNP, CMP #### [facility] [address] [address] [address] Madison Barnhart Urea nitrogen [Mass/Vol] 22.0 mg/dL Critically high 7.0-18.0 [facility] Comment on above: Performed By: #### L IPID, T7, TSH, BNP, CMP #### [facility] [address] [place] [address] Dr. Madison Barnhart Urea nitrogen/Creatinine [Mass ratio] 20.4 mg/mg Normal [facility] Comment on above: Performed By: #### L IPID, T7, TSH, BNP, CMP #### [facility] [address] [address] [address] Madison Barnhart TSHon 06-02-2022 TSH 1.046 uIU/mL Normal 0.358-3.740 [facility] Comment on above: Performed By: #### L IPID, T7, TSH, BNP, CMP #### [facility] [address] [place] [address] Dr. Madison Barnhart Ambulatory Clinical Summaryo n 08-09-2020 Ambulatory Clinical Summary {[id number] Normal [facility] Coding Summary.on 10-27-2019 Coding Summary. CODING DATE: 10/27/2019 FINAL [facility] STATUS: Home (Routine DC) PAYOR: Ivana [...] Christa Marcus Date Saved: 10/27/2019 03:40 pm [facility] Vital Signs Date Time Vital Sign Value Performing Clinician Facility 08-16-2023 14:00-0400 Body height 172.72 cm Markell Odell Other [employer] [facility] Other 08-16-2023 14:00-0400 Body mass index (BMI) [Ratio] 25.39 kg/m2 Markell Odell Other [facility] Other 08-16-2023 14:00-0400 Body weight 75.75 kg Markell Odell Other [facility] Other 08-16-2023 14:00-0400 Diastolic blood pressure 78 mm[Hg] Markell Odell Other [facility] Other 08-16-2023 14:00-0400 Systolic blood pressure 138 mm[Hg] Markell Odell Other [facility] Other 07-09-2023 14:02-0400 Diastolic blood pressure 67 mm[Hg] MD Dede Michaels Work Phone: [facility] 07-09-2023 14:02-0400 Heart rate 55 /min MD Dede Michaels Work Phone: [facility] 07-09-2023 14:02-0400 Respiratory rate 16 /min MD Dede Michaels Work Phone: [facility] 07-09-2023 14:02-0400 SaO2% (BldA) [Mass fraction] 98 % MD Dede Michaels Work Phone: [facility] 07-09-2023 14:02-0400 Systolic blood pressure 128 mm[Hg] MD Dede Michaels Work Phone: [facility] 07-09-2023 12:16040 Body height 172.72 cm MD Dede Michaels Work Phone: [facility] 07-09-2023 12:16040 Body temperature 97.8 [degF] MD Dede Michaels Work Phone: [facility] 07-09-2023 12:16040 Body weight 77.11 kg MD Dede Michaels Work Phone: [facility] Encounters Encounter Date Encounter Type Care Provider Facility Start: 12-20-2023 End: 12-20-2023 ambulatory [facility] Start: 08-20-2023 End: 08-20-2023 ambulatory Markell Odell Other [facility] Other Start: 08-20-2023 Telephone encounter [facility]ell Valerio [facility] Start: 08-16-2023 End: 08-16-2023 ambulatory Markell Odell Other [facility] Other Start: 08-16-2023 Office outpatient visit 15 minutes [facility]ell [facility] Start: 08-09-2023 End: 08-12-2023 ambulatory [facility] Start: 07-09-2023 End: 07-09-2023 ambulatory Oziel Whalen Facility:[facility] Start: 07-09-2023 End: 07-09-2023 Admission to same day surgery center MD Dede Michaels Work Phone: [facility] Work Phone: Start: 07-09-2023 End: 07-09-2023 ambulatory MD Dede Michaels Work Phone: [facility] Work Phone: Start: 06-25-2023 End: 06-25-2023 ambulatory [facility] Start: 06-07-2023 End: 06-07-2023 ambulatory [facility] Start: 04-29-2023 End: 04-29-2023 ambulatory PAYAL FRANCO . [facility] Work Phone: Start: 04-29-2023 End: 04-29-2023 Departed Referred MD aPyal Franco Work Phone: [facility] [place] Work Phone: Start: 06-11-2022 End: 06-12-[address] DEDE MICHAELS . Facility: Start: 06-02-2022 End: 06-03-[address] DEDE MICHAELS . Facility: Procedures Date Procedure Procedure Detail Performing Clinician Start: 07-09-2023 Esophagogastroduodenoscopy MD Dede Michaels Work Phone: Plan of Treatment Date Care Activity Detail Author Start: 07-09-2023 [facility] Patient Education Hiatal Hernia (DC) [facility] Work Phone: Payers Date Payer Category Payer Self-pay [id number] [id number] [facility] [id number] 1960 Unknown [id number] 2.16.84 [id number] 1960 Unknown [id number] 2.16.84 [id number] 1960 Unknown [id number] 2.16.84 [id number] 1958 Unknown [id number] Unknown [place] [employer] [id number] Unknown [id number] 2.16.8 [id number] Unknown [id number] 2.16.8 [id number] Social History Date Type Detail Facility Tobacco smoking status NHIS Unknown if ever smoked [facility] [place] Work Phone: Start: 1960 Sex Assigned At Female F [facility] Start: 07-09-2023 Tobacco smoking status NHIS Never smoked tobacco (finding) [facility] Sex Assigned At Sex Assigned At Bir th [employer] Other Goals Date Patient Goal Desired Activity /State Clinical Notes 06-05-2022 to 12-20-2023 Note Date & Type Note Facility 12-20-2023 Note Patient being seen v ia telemedicine for bradycardia s/p thyroidectomy. Last night HR was running 47-49. Review of Systems All other systems reviewed and are negative. [facility] 08-20-2023 Evaluation note Encounter Date Diagnosis Assessment Notes Aug, Hiatal hernia (ICD-10 - K44.9) [facility] Other 09-15-2023 Evaluation note* Encounter Date Diagnosis [...] her bed at night RTO 3 months [facility] Other 09-08-2023 NoteCardiology Clinic Note Chief Complaint: [...] fibrillation ([facility] Surgical History She has no past surgical [...] Patient verbalizes understanding (more content not included)... [facility]09-08-2023 NotePatient here for 2 mo follow up. She started Eliquis. Metoprolol was decreased at last visit. She is doing well, denies chest pain and palpitations. Denies bleeding on Eliquis.[facility]08-08-2023 Procedure note [facility]07-25-2023 NoteCardiology Clinic Note Chief Complaint: follow [...] was previously not anticoagulated because of low WQB4XQ6-THMs score. However, after further review of her chart, it appears that Years ago, she had an episode that was concerning for CVA versus TIA. MRI did not demonstrate definite evidence of infarct. As such, her SYM0HS1-RATz score is actually 4. I discussed with patient need for anticoagulation. She preferred to proceed with 30-day event monitor. Patient has not had a documented atrial fibrillation on ai (more content not included)...[facility]07-25-2023 NotePatient here to discuss abnormal stress test. Had normal echo, and is still wearing 30 day event monitor.[facility]07-07-2023 Note New patient here to re-establish care. She recently presented to [facility] ED for chest pressure and SOB. She was treated for bronchitis at that time. SUMMERS and palpitations have been worsening lately. Review of Systems Cardiovascular: Positive for chest pain (pressure type), dyspnea on exertion and palpitations. All other systems reviewed and are negative.[facility] 06-07-2023 NoteCardiology Clinic Note Chief Complaint: new [...] was previously not anticoagulated because of low JTO7GQ1-RVCh score. However, after further review of her chart, it appears that Years ago, she had an episode that was concerning for CVA versus TIA. MRI did not demonstrate definite evidence of infarct. As such, her [id number]-[id number] score is actually 4. I discussed with [...] plan. -Patient was educat (more content not included)...[facility]07-05-2022 NoteEXAMINATION: CTA CHEST WO W CON HISTORY: [...] Electronically authenticated by: ANDREW RODRIGUEZ Date: 2022-06-05 07:54[facility] HospitalEvaluation noteNo assessment information availableKing'S [facility] [place] Work Phone: History and physical note Author Oziel Whalen [facility] July 09, 2023 1:21pm Note Date/Time July 09, 2023 1:2 1pm [facility] [address] [place] [address] Gastroenterology H&P Signed Patient: Liliana Vázquez MR# : [id number] : 1960 Acct:[id number] Age/Sex: 63 / F Adm Date: 3 Loc: Room: Type: [facility] Attending Dr: Oziel Whalen MD Copies [...] signed by Oziel Whalen MD> 07/09/23 1321 [facility] [place] Work Phone: History general Narrative - Reported* Type Description Date Medical History Hyperthyroidism Medical History high blood pressure Medical History Atrial fibrillation [facility] Other Hospital Discharge instructions Additional Instructions DISCHARGE [...] problems. -Follow up with PCP. -Office number [phone].[facility] [place] Work Phone: Summary Purpose Family History No [...] section and content) DATE CREATED AUTHOR 08/08/2020 [facility] DATE CREATED AUTHOR AUTHOR'S ORGANIZ ATION 05/11/2023 [facility] DATE CREATED AUTHOR AUTHOR'S ORGANIZ ATION 07/14/2023 [facility] DATE CREATED AUTHOR AUTHOR'S ORGANIZ ATION 12/21/2023 [facility] Care Teams (unrecognized sec tion and [...] BE BASED ON THE PRIMARY CLINICAL RECORDS. [employer] [facility]. provides no warranty or guarantee of the accuracy or completeness of information in this document.
[2024-01-27 12:33] LABS: Free T3 2.55 pg/mL (2.18-3.98); Thyroid Stimulating Hormone 0.326 uIU/mL (0.358-3.740)
== END 2024-01-27 11:38 | disposition home or self-care (01) ==
LOC: LAB 11:38
PROVIDERS: PCP Family Medicine; Visit Provider Family Medicine
DX: E05.90 Thyrotoxicosis, unspecified without thyrotoxic crisis or storm (principal)
CPT/HCPCS: 36415; 84436; 84443; 84481

== ENCOUNTER 2024-02-13 09:07 | Outpatient (OUT) | payer OTHER, SELFPAY ==
--- OUTSIDE RECORDS SUMMARY | 2024-02-13 09:12 | XMS_ITS | CCD ---
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 Name Role Phone MD Payal Franco Attending [...] Unavailable MD Dede Michaels Primary Care Provider [phone] MD Oziel Whalen Attending Provider [phone] Oziel Whalen Admitting Unavailable Oziel Whalen Attending [...] source) bee venom Drug allergy (disorder) [facility] Repository (2 sources) venom-honey bee; Translations: [venom-honey bee] Allergy to substance 07-08-20 Anaphylaxis [facility] (2 sources) Sulfamethoxazole / Trimethoprim Drug Allergy upset stomach [employer] Other Medications Current Medications Medication Drug Class(es) Dates Sig (Normalized) Sig (Original) [id number] 200 actuat albuterol 0.09 mg/actuat metered dose [...] 06-13-2022 Chronic Other aftercare (1 source) Other assisted (current) drug therapy; 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] Onset: 04-30-2023 Episodic Other [...] Value Interpretation Reference Range Facility Office Visiton 02-07-2024 Follow-up visit [id number] Liliana Vázquez 1960 F Date Provider Department Center 02/07/2024 ANGELLA GRIER Family History Problem Relation Age of Onset Stroke Mother Stroke Father Stroke Sister Family Status - Relation Status Age at Mother Father Sister Level of Service:98678 [place] OFFICE/OUTPATIENT ESTABLISHED LOW MDM 20 MIN Normal [facility] Telemedicineon 12-20-2023 Telemedicine [id number] Liliana Vázquez S 1960 F Date Provider Department Center 12/20/2023 ANGELLA GRIER Family History Problem Relation Age of Onset Stroke Mother Stroke Father Stroke Sister Family Status - Relation Status Age at Mother Father Sister Level of Service:91088 [place] OFFICE/OUTPATIENT ESTABLISHED MOD MDM 30 MIN Normal [facility] Office Visiton 08-09-2023 Follow-up visit [id number] Liliana Vázquez 1960 Date Provider Department Center 08/09/2023 ANGELLA GRIER Family History Problem Relation Age of Onset Stroke Mother Stroke Father Stroke Sister Family Status - Relation Status Age at Mother Father Sister Level of Service:07027 [place] OFFICE/OUTPATIENT ESTABLISHED MOD MDM 30-39 MIN Normal [facility] Neeraj 07-09-2023 L - -------- Specimen: [id number] Received: 07/09/23 Status: MITCHELL Antoine Num: [id number] Spec Type: Surgical Subm Dr: Oziel Whalen MD Tissues: A Esophagus Biopsy (ESOPHAGUS BX) Procedures: VERONICA, Gross/Micro L4 -------- Age/ Patient Sex Location Account Attending Physician -------- Liliana Vázquez 63/F [id number] Oziel Whalen MD -------- SPEC NUM: [id number] RECD: 07/09/23 STATUS: MITCHELL ANTOINE NUM: [id number] RUSTY: 07/09/23- [facility] DR: Oziel Whalen MD ENTERED: 07/09/23 LUIS DANIEL BARRON: SPEC TYPE: Surgical DEPT: S ORDERED: TUSHAR/Ivelisse, Gross/Micro L4 ORDERED: VERONICA, Gross/Micro L4 Pathological Diagnosis Esophagus, biopsy: - [...] microscopic examination confirms the diagnosis. -------- Specimen: [id number] Received: 07/09/23 Status: MITCHELL Antoine Num: [id number] Spec Type: Surgical Subm Dr: Oziel Whalen MD Tissues: A Esophagus Biopsy (ESOPHAGUS BX) Procedures: TUSHARIvelisse, Gross/Micro L4 -------- Patient: GurpreetLiliana [id number] (Continued) -------- Specimen: [id number] Received: 07/09/23 (Continued) Signed (signature on file) Jaylen Sauceda MD 07/11/23 1157 -------- Specimen: [id number] Received: 07/09/23 Status: MITCHELL Antoine Num: [id number] Spec Type: Surgical Subm Dr: Oziel Whalen MD Tissues: A Esophagus Biopsy (ESOPHAGUS BX) Procedures: HE/Ivelisse, Gross/Micro L4 -------- Patient: Liliana Vázquez [id number] (Continued) -------- Specimen: [id number] Received: 07/09/23 (Continued) CPT Codes 82001 -------- -------- Specimen: [id number] Received: 07/09/23 Status: MITCHELL Antoine Num: [id number] Spec Type: Surgical Subm Dr: Oziel Whalen MD Tissues: A Esophagus Biopsy (ESOPHAGUS BX) Procedures: HE/2, Gross/Micro L4 -------- Patient: Liliana Vázquez [id number] (Continued) -------- Signed (signature on file) Jaylen Sauceda MD 07/11/23 1157 [facility] 36on 07-02-2023 36 Patient's event monitor showed 19 mins of afib this morning. Strip was emailed to Dr. Ji who recommended she start Eliquis 5mg bid. I then spoke with patient who agreed to start it. Rx was sent to her pharmacy. [facility] Office Visiton 06-25-2023 Follow-up visit [id number] Liliana Vázquez 1960 F Date Provider Department Center 06/25/2023 DeyaniraANGELLA CORONEL [facility] No family history on file Level of Service:42795 [place] OFFICE/OUTPATIENT ESTABLISHED MOD MDM 30-39 MIN Normal [facility] Office Visiton 06-07-2023 Follow-up visit [id number] Liliana Vázquez 1960 F Date Provider Department [facility] No family history on file Level of Service:53581 [place] OFFICE/OUTPATIENT NEW MODERATE MDM 45-59 MINUTES Normal [facility] BNPon 04-29-2023 Natriuretic peptide B (Bld) [Mass/Vol] 181.0 pg/mL Normal <=900.0 [facility] Comment on above: Performed By: #### B LOG RAFTER, CMP, CMADM ####[facility] [address] [place] [address]Dr. Madison Barnhart CARDIAC NAVA ADMITon 023 CK [Catalytic activity/Vol] 78 U/L Normal 26-192 [facility] Comment on above: Performed By: #### B LOG RAFTER, CMP, CMADM ####[facility] [address] [place] [address]Dr. Madison Barnhart CK.MB [Mass/Vol] ng/mL Normal <=3.60 [facility] Comment on above: Performed By: #### B LOG RAFTER, CMP, CMADM ####[facility] [address] [place] [address]Dr. Madison Barnhart HSTROP 5.2 pg/mL Normal 4.0-51.3 [facility] Comment on above: Result Comment: CUT- OFF POINTS HAVE BEEN ESTABLISHED BASED ON THE FOURTH UNIVERSAL DEFINITIONS OF MYOCARDIAL INFARCTION. THE UPPER REFERENCE LIMIT (URL) OF TROPONIN, DEFINED THE 99TH PERCENTILE OF cTnI DISTRIBUTION IN A REFERENCE POPULATION, HAS BEEN CONFIRMED THE DECISION THRESHOLD FOR HI DIAGNOSIS. Performed By: #### B LOG RAFTER, CMP, CMADM ####[facility] [address] [place] [address]Dr. Madison Barnhart KG 72 ng/mL Normal 9-82 [facility] Comment on above: Performed By: #### B LOG RAFTER, CMP, CMADM ####[facility] [address] [place] [address]Dr. Madison Barnhart CBC AUTO DIFFon 04-29-2023 BASO # 0.0 103/ul Normal 0.0-0.1 [facility] Comment on above: Performed By: #### C BC ####[facility] [address] [place], [place] [address]Dr. Madison Barnhart Basophils/100 WBC (Bld) 0.3 % Normal 0.2-2.0 [facility] Comment on above: Performed By: #### C BC ####[facility] [address] [place], [place] [address]Dr. Madison Barnhart EO # 0.1 103/ul Normal 0.0-0.7 [facility] Comment on above: Performed By: #### C BC ####[facility] [address] [place], [place] [address]Dr. Madison Barnhart Eosinophils/100 WBC (Bld) 2.2 % Normal 0.9-7.0 [facility] Comment on above: Performed By: #### C BC ####[facility] [address] [place], [place] [address]Dr. Madison Barnhart Erythrocyte distribution width (RBC) [Ratio] 13.1 % Normal 11.0-15.0 [facility] Comment on above: Performed By: #### C BC ####[facility] [address] [place], [place] [address]Dr. Madison Barnhart Hematocrit (Bld) [Volume fraction] 42.1 % Normal 36.0-48.0 [facility] Comment on above: Performed By: #### C BC ####[facility] [address] [place], [place] [address]Dr. Madison Barnhart Hemoglobin (Bld) [Mass/Vol] 13.9 g/dL Normal 12.0-16.0 [facility] Comment on above: Performed By: #### C BC ####[facility] [address] [place], [place] [address]DrStefania Barnhart IG # 0.04 10e3/ul Critically high 0.00-0.03 [facility] Comment on above: Performed By: #### C BC ####[facility] [address] [place] [address]DrStefania Barnhart IG % 0.7 % Critically high 0.0-0.5 [facility] Comment on above: Performed By: #### C BC ####[facility] [address] [place] [address]DrStefania Barnhart LYMPH # 0.5 103/ul Critically low 1.2-3.8 [facility] Comment on above: Performed By: #### C BC ####[facility] On[address] [place], [place] [address]DrStefania Barnhart Lymphocytes/100 WBC (Bld) 7.9 % Critically low 20.5-60.0 [facility] Comment on above: Performed By: #### C BC ####[facility] [address] [place], [place] [address]DrStefania Barnhart MANUAL DIFF REQ NO Normal [facility] Comment on above: Performed By: #### C BC ####[facility] [address] [place], [place] [address]DrStefania Barnhart MCH (RBC) [Entitic mass] 30.7 pg Normal 26.7-34.0 [facility] Comment on above: Performed By: #### C BC ####[facility] [address] [place], [place] [address]DrStefania Barnhart MCHC (RBC) [Mass/Vol] 33.0 g/dL Normal 29.9-35.2 [facility] Comment on above: Performed By: #### C BC ####[facility] [address] [place], [place] [address]DrStefania Barnhart MCV (RBC) [Entitic vol] 92.9 fL Normal 81.0-99.0 [facility] Comment on above: Performed By: #### C BC ####[facility] [address] [place], [place] [address]Dr. Madison Barnhart MONO # 0.8 103/ul Normal 0.3-0.8 [facility] Comment on above: Performed By: #### C BC ####[facility] [address] [place] [id number]. Madison Barnhart Monocytes/100 WBC (Bld) 13.1 % Critically high 1.7-12.0 [facility] Comment on above: Performed By: #### C BC ####[facility] [address] [place] [id number]. Madison Barnhart NEUT # 4.6 103/ul Normal 1.4-6.5 [facility] Comment on above: Performed By: #### C BC ####[facility] [address] [place] [address]Dr. Madison Barnhart Neutrophils/100 WBC (Bld) 75.8 % Critically high 43.0-75.0 [facility] Comment on above: Performed By: #### C BC ####[facility] [address] [place], [place] [address]Dr. Madison Barnhart Platelet mean volume (Bld) [Entitic vol] 9.4 fL Critically low 9.5-13.5 [facility] Comment on above: Performed By: #### C BC ####[facility] [address] [place] [id number]. Madison Barnhart PLT 237 103/ul Normal 150-450 [facility] Comment on above: Performed By: #### C BC ####[facility] [address] [place] [id number]. Madison Barnhart RBC 4.53 106/ul Normal 4.20-5.40 [facility] Comment on above: Performed By: #### C BC ####[facility] [address] [place] [phone]. Madison Barnhart WBC 6.0 103/ul Normal 4.0-11.0 [facility] Comment on above: Performed By: #### C BC ####[facility] [address] [place], [place] [address]Dr. Madison Barnhart CT CHEST W CONon 04-29-2023 [...] by: TL UNLU Date: 2023-04-29 14:57 Normal [facility] D-Dimer High Sensitivityon 0 04-29-2023 D-Dimer High Sensitivity < 200 Normal 0-243 [facility] Comment on above: Result Comment: The [...] patients due to co-morbid conditions. PERFORMED BY: [facility] [address] [place] [address] PATHOLOGIST COSTUMING SUPERVISOR HOWIE BARKER M.D. Performed By: #### D DIMER #### [facility] [address] No Panel InformationOrdered By: Payal Franco on 04-29-2023 D-Dimer Quantitative (PE/DVT) < 200 ng/mL 0-243 [facility] Comment on above: The reference range [...] Albumin [Mass/Vol] 3.2 g/dL Critically low 3.4-5.0 [facility] Comment on above: Performed By: #### B LOG RAFTER, CMP, CMADM ####[facility] [address] [place] [address]Dr. Madison Barnhart Albumin/Globulin [Mass ratio] 1.1 {ratio} Normal [facility] Comment on above: Performed By: #### B LOG RAFTER, CMP, CMADM ####[facility] [address] [place] [address]Dr. Madison Barnhart ALP [Catalytic activity/Vol] 119 U/L Critically high 46-116 [facility] Comment on above: Performed By: #### B LOG RAFTER, CMP, CMADM ####[facility] [address] [place] [phone]. Madison Barnhart ALT [Catalytic activity/Vol] 32 U/L Normal 14-59 [facility] Comment on above: Performed By: #### B LOG RAFTER, CMP, CMADM ####[facility] [address] [place] [phone]. Madison Barnhart Anion gap [Moles/Vol] 10.4 mmol/L Normal [facility] Comment on above: Performed By: #### B LOG RAFTER, CMP, CMADM ####[facility] [address] [place] [address]Dr. Madison Barnhart AST [Catalytic activity/Vol] 21 U/L Normal 15-37 [facility] Comment on above: Performed By: #### B LOG RAFTER, CMP, CMADM ####[facility] [address] [place] [address]Dr. Madison Barnhart Bilirubin [Mass/Vol] 0.6 mg/dL Normal 0.2-1.0 [facility] Comment on above: Performed By: #### B LOG RAFTER, CMP, CMADM ####[facility] [address] [place] [address]Dr. Madison Barnhart Calcium [Mass/Vol] 8.2 mg/dL Critically low 8.5-10.1 [facility] Comment on above: Performed By: #### B LOG RAFTER, CMP, CMADM ####[facility] [address] [place], [place] [address]Dr. Madison Barnhart Chloride [Moles/Vol] 107 mmol/L Normal 98-107 [facility] Comment on above: Performed By: #### B LOG RAFTER, CMP, CMADM ####[facility] [address] [place], [place] [address]Dr. Madison Barnhart CO2 [Moles/Vol] 27.7 mmol/L Normal 21.0-32.0 [facility] Comment on above: Performed By: #### B LOG RAFTER, CMP, CMADM ####[facility] [address] [place], [place] [address]Dr. Madison Barnhart Creatinine [Mass/Vol] 1.19 mg/dL Critically high 0.55-1.02 [facility] Comment on above: Performed By: #### B LOG RAFTER, CMP, CMADM ####[facility] [address] [place], [place] [address]Dr. Madison Barnhart EGFR-AF TAJIK 56 mL/min/1.73m2 Critically low >=60 [facility] Comment on above: Performed By: #### B LOG RAFTER, CMP, CMADM ####[facility] [address] [place], [place] [address]Dr. Madison Barnhart EGFR-NON AF TAJIK 46 mL/min/1.73m2 Critically low >=60 [facility] Comment on above: Performed By: #### B LOG RAFTER, CMP, CMADM ####[facility] [address] [place] [address]Dr. Madison Barnhart Globulin (S) [Mass/Vol] 3.0 g/dL Normal [facility] Comment on above: Performed By: #### B LOG RAFTER, CMP, CMADM ####[facility] [address] [place] [address]Dr. Madison Barnhart Glucose [Mass/Vol] 122 mg/dL Critically high 74-106 [facility] Comment on above: Performed By: #### B LOG RAFTER, CMP, CMADM ####[facility] [address] [place] [address]Dr. Madison Barnhart Potassium [Moles/Vol] 4.1 mmol/L Normal 3.5-5.1 [facility] Comment on above: Performed By: #### B LOG RAFTER, CMP, CMADM ####[facility] [address] [place] [address]Dr. Madison Barnhart Protein [Mass/Vol] 6.2 g/dL Critically low 6.4-8.2 [facility] Comment on above: Performed By: #### B LOG RAFTER, CMP, CMADM ####[facility] [address] [place] [address]Dr. Madison Barnhart Sodium [Moles/Vol] 141 mmol/L Normal 136-145 [facility] Comment on above: Performed By: #### B LOG RAFTER, CMP, CMADM ####[facility] [address] [place] [address]Dr. Madison Barnhart Urea nitrogen [Mass/Vol] 16.0 mg/dL Normal 7.0-18.0 [facility] Comment on above: Performed By: #### B LOG RAFTER, CMP, CMADM ####[facility] [address] [place] [address]Dr. Madison Barnhart Urea nitrogen/Creatinine [Mass ratio] 13.4 mg/mg Normal [facility] Comment on above: Performed By: #### B LOG RAFTER, CMP, CMADM ####[facility] [address] [place], [place] [address]Dr. Madison Barnhart TROPONIN, HIGH SENSITIVITYon 04-29-2023 HSTROP 5.2 pg/mL Normal 4.0-51.3 [facility] Comment on above: Result Comment: CUT- OFF POINTS HAVE BEEN ESTABLISHED BASED ON THE FOURTH UNIVERSAL DEFINITIONS OF MYOCARDIAL INFARCTION. THE UPPER REFERENCE LIMIT (URL) OF TROPONIN, DEFINED THE 99TH PERCENTILE OF cTnI DISTRIBUTION IN A REFERENCE POPULATION, HAS BEEN CONFIRMED THE DECISION THRESHOLD FOR HI DIAGNOSIS. Performed By: #### H STROPN #### [facility] [address] [address] [address] Madison Barnhart XR CHEST 1 Von [...] LEEROY VILLA Date: 2023-04-29 11:45 Normal [facility] CREATININE CLEARon 2 CREA CLEARANCE 79.62 ml/min Normal 75.00-115.00 [facility] Comment on above: Result Comment: Prev iously reported as: 1.74 On 06/11/2022 10:36 By [email or web address] Performed By: #### C REACL #### [facility] [address] [address] [address] Madison Barnhart CREA, 24 HR UR 1359.90 mg/24 hr Normal 800.00-1, 800. 00 [facility] Comment on above: Performed By: #### C REACL #### [facility] [address] [address] [address] Madison Barnhart Creatinine [Mass/Vol] 1.08 mg/dL Critically high 0.55-1.02 [facility] Comment on above: Result Comment: repe ated Previously reported as: 49.42 On 06/11/2022 10:36 By [email or web address] Performed By: #### C REACL #### [facility] [address] [address] [address] Madison Barnhart UR TOT VOL 3000 ml/24 HR Normal [facility] Comment on above: Performed By: #### C REACL #### [facility] [address] [address] [address] Madison Barnhart URINE CREAT 45.33 mg/dL Normal 20.00-300.00 [facility] Comment on above: Performed By: #### C REACL #### [facility] [address] [address] [address] Madison Barnhart ECHOCARDIO M/2D COMPLETEon 0 06-11-2022 ECHOCARDIO M/2D COMPLETE Patient: LILIANA VÁZQUEZ Exam Date: 06/11/2022 : 1960 Gender:F Ordering : DR DEDE MICHAELS . Admission #: [id number] Family : Order #: [id number] CLICK HERE TO VIEW EXAM ECHOCARDIOGRAM REPORT [...] Thomas M.D. on 06/11/2022 at 16:26 Normal [facility] PROTEIN 24HR URINEon 022 T PROT, 24 HR UR 123.0 mg/24 hr Normal <=149.1 [facility] Comment on above: Performed By: #### P ROT24U ####[facility] [address] [place] [address]DrStefania Barnhart UR PROT 4.1 mg/dL Normal <=11.9 [facility] Comment on above: Performed By: #### P ROT24U ####[facility] [address] [place] [address]Dr. Madison Barnhart UR TOT VOL 3000 ml/24 HR Normal [facility] Comment on above: Performed By: #### P ROT24U ####[facility] [address] [place] [address]DrStefania Barnhart INSULINon 06-05-2022 Insulin 10.2 uIU/mL Normal 2.6-24.9 [facility] Comment on above: Performed By: #### I NSULIN ####[facility] [address] [place] [address]Dr. Madison Barnhart BNPon 06-02-2022 Natriuretic peptide B (Bld) [Mass/Vol] 215.0 pg/mL Normal <=900.0 [facility] Comment on above: Performed By: #### L IPID, T7, TSH, BNP, CMP #### [facility] [address] [address] [address] Madison Barnhart CBC AUTO DIFFon 06-02-2022 BASO # 0.0 103/ul Normal 0.0-0.1 [facility] Comment on above: Performed By: #### C BC ####[facility] [address] [place] [id number]. Madison Barnhart Basophils/100 WBC (Bld) 0.7 % Normal 0.2-2.0 [facility] Comment on above: Performed By: #### C BC ####[facility] [address] [place] [phone]. Madison Barnhart EO # 0.1 103/ul Normal 0.0-0.7 [facility] Comment on above: Performed By: #### C BC ####[facility] [address] [place], [place] [address]Dr. Madison Barnhart Eosinophils/100 WBC (Bld) 1.5 % Normal 0.9-7.0 [facility] Comment on above: Performed By: #### C BC ####[facility] [address] [place], [place] [address]Dr. Madison Barnhart Erythrocyte distribution width (RBC) [Ratio] 13.2 % Normal 11.0-15.0 [facility] Comment on above: Performed By: #### C BC ####[facility] [address] [place], [place] [address]Dr. Madison Barnhart Hematocrit (Bld) [Volume fraction] 42.2 % Normal 36.0-48.0 [facility] Comment on above: Performed By: #### C BC ####[facility] [address] [place], [place] [address]Dr. Madison Barnhart Hemoglobin (Bld) [Mass/Vol] 13.7 g/dL Normal 12.0-16.0 [facility] Comment on above: Performed By: #### C BC ####[facility] [address] [place] [phone]. Madison Barnhart IG # 0.04 10e3/ul Critically high 0.00-0.03 [facility] Comment on above: Performed By: #### C BC ####[facility] [address] [place], [place] [address]Dr. Madison Barnhart IG % 0.7 % Critically high 0.0-0.5 [facility] Comment on above: Performed By: #### C BC ####[facility] [address] [place] [phone]. Madison Barnhart LYMPH # 1.3 103/ul Normal 1.2-3.8 [facility] Comment on above: Performed By: #### C BC ####[facility] [address] [place] [address]Dr. Madison Barnhart Lymphocytes/100 WBC (Bld) 23.3 % Normal 20.5-60.0 [facility] Comment on above: Performed By: #### C BC ####[facility] [address] [place] [address]Dr. Madison Barnhart MANUAL DIFF REQ NO Normal [facility] Comment on above: Performed By: #### C BC ####[facility] [address] [place] [address]Dr. Madison Barnhart MCH (RBC) [Entitic mass] 30.6 pg Normal 26.7-34.0 [facility] Comment on above: Performed By: #### C BC ####[facility] [address] [place] [phone]. Madison Barnhart MCHC (RBC) [Mass/Vol] 32.5 g/dL Normal 29.9-35.2 [facility] Comment on above: Performed By: #### C BC ####[facility] [address] [place] [phone]. Madison Barnhart MCV (RBC) [Entitic vol] 94.2 fL Normal 81.0-99.0 [facility] Comment on above: Performed By: #### C BC ####[facility] [address] [place] [address]Dr. Madison Barnhart MONO # 0.5 103/ul Normal 0.3-0.8 [facility] Comment on above: Performed By: #### C BC ####[facility] [address] [place] [phone]. Madison Barnhart Monocytes/100 WBC (Bld) 8.8 % Normal 1.7-12.0 [facility] Comment on above: Performed By: #### C BC ####[facility] [address] [place], [place] [address]BjStefania Barnhart NEUT # 3.5 103/ul Normal 1.4-6.5 [facility] Comment on above: Performed By: #### C BC ####[facility] [address] [place], [place] [address]IhStefania Barnhart Neutrophils/100 WBC (Bld) 65.0 % Normal 43.0-75.0 [facility] Comment on above: Performed By: #### C BC ####[facility] [address] [place] [id number] Barnhart Platelet mean volume (Bld) [Entitic vol] 9.0 fL Critically low 9.5-13.5 [facility] Comment on above: Performed By: #### C BC ####[facility] [address] [place] [id number] Barnhart PLT 245 103/ul Normal 150-450 [facility] Comment on above: Performed By: #### C BC ####[facility] [address] [place], [place] [address]BnStefania Barnhart RBC 4.48 106/ul Normal 4.20-5.40 [facility] Comment on above: Performed By: #### C BC ####[facility] [address] [place] [id number] Barnhart WBC 5.4 103/ul Normal 4.0-11.0 [facility] Comment on above: Performed By: #### C BC ####[facility] [address] [place], [place] [address]PoDr. Madison Barnhart FREE THYROXINE INDEX T7on FTI 2.26 Normal 1.30-4.50 [facility] Comment on above: Performed By: #### L IPID, T7, TSH, BNP, CMP #### [facility] [address] [place], [place] [address] Dr. Madison Barnhart T3U 31.0 % Normal 30.0-39.0 [facility] Comment on above: Performed By: #### L IPID, T7, TSH, BNP, CMP #### [facility] [address] [place] [address] [address] Madison Barnhart T4 [Mass/Vol] 7.30 ug/dL Normal 4.80-13.90 [facility] Comment on above: Performed By: #### L IPID, T7, TSH, BNP, CMP #### [facility] [address] [place] [address] [address] Madison Barnhart GLYCOHEMOGLOBIN A1Con 2021 ADA RECOMMENDATION SEE BELOW Normal [facility] Comment on above: Result Comment: ADA RECOMMENDED LIMIT 4.0 - 6.0 ADA THERAPEUTIC TARGET < 7.0 ACTION SUGGESTED > 7.0 Performed By: #### A 1C ####[facility] [address] [place] [address]Dr. Madison Barnhart Glucose [Mass/Vol] 117 mg/dL Normal [facility] Comment on above: Performed By: #### A 1C ####[facility] [address] [place] [address]Dr. Madison Barnhart HbA1c (Bld) [Mass fraction] 5.7 % Normal 4.5-6.2 [facility] Comment on above: Performed By: #### A 1C ####[facility] [address] [place] [id number]. Madison Barnhart IRONon 06-02-2022 Iron [Mass/Vol] 85.0 ug/dL Normal 50.0-170.0 [facility] Comment on above: Performed By: #### I JACK ####[facility] [address] [place] [address]DrStefania Barnhart LIPID PROFILEon 06-02-2022 CHOL-HDL RATIO NORM SEE BELOW Normal [facility] Comment on above: Result Comment: 3.3 - 4.4 LOW RISK 4.4 - 7.1 AVERAGE RISK 7.1 - 11.0 MODERATE RISK >11.0 HIGH RISK Performed By: #### L IPID, T7, TSH, BNP, CMP #### [facility] [address] [address] [address] Madison Barnhart Cholesterol [Mass/Vol] 238 mg/dL Critically high <=200 [facility] Comment on above: Performed By: #### L IPID, T7, TSH, BNP, CMP #### [facility] [address] [address] [address] Madison Barnhart Cholesterol in HDL [Mass/Vol] 90 mg/dL Critically high 40-60 [facility] Comment on above: Performed By: #### L IPID, T7, TSH, BNP, CMP #### [facility] [address] [place] [address] [address] Madison Barnhart Cholesterol in LDL [Mass/Vol] 132.4 mg/dL Normal [facility] Comment on above: Performed By: #### L IPID, T7, TSH, BNP, CMP #### [facility] [address] [place] [address] [address] Madison Barnhart Cholesterol.total/Chol esterol in HDL [Mass ratio] 2.6 {ratio} Normal [facility] Comment on above: Performed By: #### L IPID, T7, TSH, BNP, CMP #### [facility] [address] [place] [address] [address] Madison Barnhart HDL NORMAL > or = 60 mg/dl - LO W CARDIOVASCULAR RISK <40 mg/dl - HIGH CARDIOVASCULAR RISK Normal [facility] Comment on above: Performed By: #### L IPID, T7, TSH, BNP, CMP #### [facility] [address] [address] [address] Madison Barnhart LDL CALC NORMAL SEE BELOW Normal [facility] Comment on above: Result Comment: <100 mg/dl OPTIMAL 100 - 129 mg/dl NEAR OR ABOVE OPTIMAL 130 - 159 mg/dl BORDERLINE HIGH 160 - 189 mg/dl HIGH >190 mg/dl VERY HIGH Performed By: #### L IPID, T7, TSH, BNP, CMP #### [facility] [address] [address] [address] Madison Barnhart Triglyceride [Mass/Vol] 78 mg/dL Normal <=150 [facility] Comment on above: Performed By: #### L IPID, T7, TSH, BNP, CMP #### [facility] [address] [place] [address] Dr. Madison aBrnhart VLDL CALC 15.6 mg/dL Normal [facility] Comment on above: Performed By: #### L IPID, T7, TSH, BNP, CMP #### [facility] [address] [place] [address] Dr. Madison Barnhart PROF 14(COMP METB)on 022 Albumin [Mass/Vol] 3.5 g/dL Normal 3.4-5.0 [facility] Comment on above: Performed By: #### L IPID, T7, TSH, BNP, CMP #### [facility] [address] [place] [address] Dr. Madison Barnhart Albumin/Globulin [Mass ratio] 1.1 {ratio} Normal [facility] Comment on above: Performed By: #### L IPID, T7, TSH, BNP, CMP #### [facility] [address] [place] [address] Dr. Madison Barnhart ALP [Catalytic activity/Vol] 92 U/L Normal 46-116 [facility] Comment on above: Performed By: #### L IPID, T7, TSH, BNP, CMP #### [facility] [address] [place] [address] Dr. Madison Barnhart ALT [Catalytic activity/Vol] 28 U/L Normal 14-59 [facility] Comment on above: Performed By: #### L IPID, T7, TSH, BNP, CMP #### [facility] [address] [place] [address] Dr. Madison Barnhart Anion gap [Moles/Vol] 10.6 mmol/L Normal [facility] Comment on above: Performed By: #### L IPID, T7, TSH, BNP, CMP #### [facility] [address] [place] [address] Dr. Madison Barnhart AST [Catalytic activity/Vol] 17 U/L Normal 15-37 [facility] Comment on above: Performed By: #### L IPID, T7, TSH, BNP, CMP #### [facility] [address] [place] [address] Dr. Madison Barnhart Bilirubin [Mass/Vol] 0.5 mg/dL Normal 0.2-1.0 [facility] Comment on above: Performed By: #### L IPID, T7, TSH, BNP, CMP #### [facility] [address] [place] [address] Dr. Madison Barnhart Calcium [Mass/Vol] 8.4 mg/dL Critically low 8.5-10.1 [facility] Comment on above: Performed By: #### L IPID, T7, TSH, BNP, CMP #### [facility] [address] [address] [address] Madison Barnhart Chloride [Moles/Vol] 105 mmol/L Normal 98-107 [facility] Comment on above: Performed By: #### L IPID, T7, TSH, BNP, CMP #### [facility] [address] [place] [address] Dr. Madison Barnhart CO2 [Moles/Vol] 28.3 mmol/L Normal 21.0-32.0 [facility] Comment on above: Performed By: #### L IPID, T7, TSH, BNP, CMP #### [facility] [address] [place] [address] Dr. Madison Barnhart Creatinine [Mass/Vol] 1.08 mg/dL Critically high 0.55-1.02 [facility] Comment on above: Performed By: #### L IPID, T7, TSH, BNP, CMP #### [facility] [address] [place] [address] Dr. Madison Barnhart EGFR-AF TAJIK >60 Normal >=60 [facility] Comment on above: Performed By: #### L IPID, T7, TSH, BNP, CMP #### [facility] [address] [place] [address] Dr. Madison Barnhart EGFR-NON AF TAJIK 52 mL/min/1.73m2 Critically low >=60 [facility] Comment on above: Performed By: #### L IPID, T7, TSH, BNP, CMP #### [facility] [address] [place] [address] Dr. Madison Barnhart Globulin (S) [Mass/Vol] 3.3 g/dL Normal [facility] Comment on above: Performed By: #### L IPID, T7, TSH, BNP, CMP #### [facility] [address] [address] [address] Madison Barnhart Glucose [Mass/Vol] 99 mg/dL Normal 74-106 [facility] Comment on above: Performed By: #### L IPID, T7, TSH, BNP, CMP #### [facility] [address] [address] [address] Madison Barnhart Potassium [Moles/Vol] 3.9 mmol/L Normal 3.5-5.1 [facility] Comment on above: Performed By: #### L IPID, T7, TSH, BNP, CMP #### [facility] [address] [place] [address] Dr. Madison Barnhart Protein [Mass/Vol] 6.8 g/dL Normal 6.4-8.2 [facility] Comment on above: Performed By: #### L IPID, T7, TSH, BNP, CMP #### [facility] [address] [place] [address] Dr. Madison Barnhart Sodium [Moles/Vol] 140 mmol/L Normal 136-145 [facility] Comment on above: Performed By: #### L IPID, T7, TSH, BNP, CMP #### [facility] [address] [place] [address] Dr. Madison Barnhart Urea nitrogen [Mass/Vol] 22.0 mg/dL Critically high 7.0-18.0 [facility] Comment on above: Performed By: #### L IPID, T7, TSH, BNP, CMP #### [facility] [address] [address] [address] Madison Barnhart Urea nitrogen/Creatinine [Mass ratio] 20.4 mg/mg Normal [facility] Comment on above: Performed By: #### L IPID, T7, TSH, BNP, CMP #### [facility] [address] [address] [address] Madison Barnhart TSHon 06-02-2022 TSH 1.046 uIU/mL Normal 0.358-3.740 [facility] Comment on above: Performed By: #### L IPID, T7, TSH, BNP, CMP #### [facility] [address] [address] [address] Madison Barnhart Ambulatory Clinical Summaryo n 08-09-2020 Ambulatory Clinical Summary {[id number] Normal [facility] Coding Summary.on 10-27-2019 Coding Summary. CODING DATE: 10/27/2019 FINAL [facility] STATUS: Home (Routine DC) PAYOR: Ivana [...] Christa Marcus Date Saved: 10/27/2019 03:[address] [facility] Vital Signs Date Time Vital Sign Value Performing Clinician Facility 08-16-2023 14:00-0400 Body height 172.72 cm Markell Odell Other [employer] Other 08-16-2023 14:00-0400 Body mass index (BMI) [Ratio] 25.39 kg/m2 Markell Odell Other [employer] Other 08-16-2023 14:00-0400 Body weight 75.75 kg Markell Odell Other [employer] Other 08-16-2023 14:00-0400 Diastolic blood pressure 78 mm[Hg] Markell Odell Other [employer] Other 08-16-2023 14:00-0400 Systolic blood pressure 138 mm[Hg] Markell Odell Other [employer] Other 07-09-2023 14:02-0400 Diastolic blood pressure 67 mm[Hg] MD Dede Michaels Work Phone: [facility] 07-09-2023 14:02-0400 Heart rate 55 /min MD Dede Michaels Work Phone: [facility] 07-09-2023 14:02-0400 Respiratory rate 16 /min MD Dede Michaels Work Phone: [facility] 07-09-2023 14:02-0400 SaO2% (BldA) [Mass fraction] 98 % MD Dede Michaels Work Phone: [facility] 07-09-2023 14:02-0400 Systolic blood pressure 128 mm[Hg] MD Dede Michaels Work Phone: [facility] 07-09-2023 12:16-0400 Body height 172.72 cm MD Dede Michaels Work Phone: [facility] 07-09-2023 12:16-0400 Body temperature 97.8 [degF] MD Dede Michaels Work Phone: [facility] 07-09-2023 12:16-0400 Body weight 77.11 kg MD Dede Michaels Work Phone: [facility] Encounters Encounter Date Encounter Type Care Provider Facility Start: 02-07-2024 End: 02-07-2024 ambulatory [facility] Start: 12-20-2023 End: 12-20-2023 ambulatory [facility] Start: 08-20-2023 End: 08-20-2023 ambulatory Markell Odell Other [employer] [facility] [employer] Other Start: 08-20-2023 Telephone encounter Markell Valerio [facility] Start: 08-16-2023 End: 08-16-2023 ambulatory Markell Odell Other [facility] [employer] Other Start: 08-16-2023 Office outpatient visit 15 minutes Markell RE[facility] Start: 08-09-2023 End: 08-12-2023 ambulatory [facility] Start: 07-09-2023 End: 07-09-2023 ambulatory Oziel Whalen Facility:[facility] Start: 07-09-2023 End: 07-09-2023 Admission to same day surgery center MD Dede Michaels Work Phone: [facility] Work Phone: Start: 07-09-2023 End: 07-09-2023 ambulatory MD Dede Michaels Work Phone: [facility] Work Phone: Start: 06-25-2023 End: 06-25-2023 ambulatory [facility] Start: 06-07-2023 End: 06-07-2023 ambulatory [facility] Start: 04-29-2023 End: 04-29-2023 ambulatory PAYAL FRANCO . [facility] Work Phone: Start: 04-29-2023 End: 04-29-2023 Departed Referred MD Payal Franco Work Phone: [facility] [place] Work Phone: Start: 06-11-2022 End: 06-12-[address] DEDE MICHAELS . Facility: Start: 06-02-2022 End: 06-03-[address] DEDE MICHAELS . Facility: Procedures Date Procedure Procedure Detail Performing Clinician Start: 07-09-2023 Esophagogastroduodenoscopy MD Dede Michaels Work Phone: Plan of Treatment Date Care Activity Detail Author Start: 07-09-2023 [facility] Patient Education Hiatal Hernia (DC) [facility] Work Phone: Payers Date Payer Category Payer Self-pay [id number] 2023 Unknown [id number] [id number] 1960 Unknown [id number] [id number] [id number] 1960 Unknown [id number] 2.16.84 [id number] 1960 Unknown [id number] 2.16.84 [id number] 1958 Unknown [id number] Unknown [employer]/BS [id number] Unknown [id number] 2.16.8 [id number] Unknown [id number] 2.16.8 [id number] Social History Date Type Detail Facility Tobacco smoking status WYIS Unknown if ever smoked [facility] Work Phone: Start: 1960 Sex Assigned At Female F [facility] Start: 07-09-2023 Tobacco smoking status NHIS Never smoked tobacco (finding) [facility] Sex Assigned At Sex Assigned At Bir th [employer] Other Goals Date Patient Goal Desired Activity /State Clinical Notes 06-05-2022 to 02-07-2024 Note Date & Type Note Facility 02-07-2024 Note Cardiology Clinic No te Chief Complaint: follow up HPI: Liliana Vázquez is a 64 y.o. female with a past medical history [...] No significant valvular dysfunction was noted. Patient wore a monitor which demonstrated atrial fibrillation. She was started on Eliquis. Patient presents today for follow-up. She states that she has been doing well. She denies any chest pain. She reports some shortness of breath at rest, but states that it goes away with exertion. She denies any lower extremity edema, orthopnea, or paroxysmal nocturnal dyspnea. She self discontinued metoprolol because her heart rate was rate. She has noticed several episodes of Atrial fibrillation over the past few months, which were self-limiting. She is denies any additional complaints or concerns at the present time. Cardiology ROS: GENERAL: Denies fever, chills, night [...] of Abnormal ECG, Arrhythmia, and Atrial fibrillation ([facility]). Surgical History She has no past [...] EVERY 4 HOURS NEEDED FOR 30 DAYS apixaban (Eliquis) 5 mg tablet Take 1 tablet (5 mg) by mouth in the morning and at bedtime. 180 tablet 3 cholecalciferol (D3-5) 5,000 Units tablet Take 1 tablet by mouth in the morning. FLUoxetine (PROzac) 20 mg capsule Take 1 tablet by mouth in the morning. levothyroxine (Synthroid, Levoxyl) 100 mcg tablet 1 (one) time each day at the same time. liothyronine (Cytomel) 5 mcg tablet TAKE 1 TABLET BY MOUTH EVERY DAY ON EMPTY STOMACH FOR 30 DAYS omeprazole (PriLOSEC) [address] capsule TAKE 1 CAPSULE BY MOUTH 30 MINUTES BEFORE MORNING MEAL EVERY DAY FOR 30 DAYS for 30 [DISCONTINUED] aspirin 81 mg EC tablet Take 81 mg by mouth in the morning. metoprolol succinate XL (Toprol-XL) 25 mg 24 hr tablet Take 12.5 tablets by mouth in the morning. [DISCONTINUED] methIMAzole (Tapazole) 5 mg tablet Take 1 tablet by mouth in the morning. No current facility-administered medications on file prior to visit. Allergies Patient has no known allergies. Physical Exam VITAL SIGNS: BP 140/86 (BP Location: Left arm, Patient Position: Sitting) Pulse 80 Ht 1.727 m (5' 8 ) Wt 72.6 kg (160 lb) SpO2 98% BMI 24.33 kg/m??? Constitutional: Well developed, Well nourished, No [...] Judgment normal, Mood normal. Impression: -Chest pain, non cardiac in nature. No recurrence -Afib with documented afib on event monitor -HTN, well controlled at home per patient report -Shortness of breath at rest, improves with exertion, likely non cardiac Plan: -Patient self discontinue (more content not included)... [facility] 02-07-2024 Note Patient here for 2 m o follow up PAF. She has stopped metoprolol and has only had 1 afib recently. She stopped after her HR went down to the 40's. Denies chest pain, palpitations, lightheadedness/syncope, and bleeding on Eliquis. Does feel like she can't get a deep breath and wants to see pulmonary. Review of Systems Cardiovascular: Positive for dyspnea on exertion. Respiratory: Positive for shortness of breath. All other systems reviewed and are negative. [facility] 12-20-2023 Note Patient being seen v ia telemedicine for bradycardia s/p thyroidectomy. Last night HR was running 47-49. Review of Systems All other systems reviewed and are negative. [facility] 12-20-2023 Note Cardiology Clinic No te Chief Complaint: follow up HPI: Liliana Vázquez is a 64 y.o. female with a past medical history [...] significant valvular dysfunction was noted. Patient presents for telemedicine visit for follow up. Date of Telehealth Visit: 12/20/2023 The patient was notified that using 3rd constitution party telecommunication application (e.g., [employer]) is not HIPPA compliant and may carry some privacy risks. Yes The visit was conducted [id number] with the use of audio and video technology Face Time between patient and provider for a virtual visit. Verbal consent to provide and bill this service was obtained on 12/20/2023 . No signature was obtained due to the COVID-19 pandemic. Patient Location: [facility]patient [facility] Patient states that she recently had her thyroidectomy. She states that since that time, she has noticed that her heart rate has been slower. In the past 24 hours, she felt that her heart rate was racing, but her heart rate monitor showed a heart rate in the 40s to 50s. She denies any additional complaints or concerns. She denies any chest pain or shortness of breath. She denies any lower extremity edema, orthopnea, or paroxysmal nocturnal dyspnea. Cardiology ROS: GENERAL: Denies fever, chills, night [...] of Abnormal ECG, Arrhythmia, and Atrial fibrillation ([facility]). Surgical History She has no past [...] Prior to Visit Medication Sig Dispense Refill apixaban (Eliquis) 5 mg tablet Take 1 tablet (5 mg) by mouth in the morning and at bedtime. 180 tablet 3 cholecalciferol (D3-5) 5,000 Units tablet Take 1 tablet by mouth in the morning. FLUoxetine (PROzac) 20 mg capsule Take 1 tablet by mouth in the morning. levothyroxine (Synthroid, Levoxyl) 100 mcg tablet 1 (one) time each day at the same time. metoprolol succinate XL (Toprol-XL) 25 mg 24 hr tablet Take 12.5 tablets by mouth in the morning. omeprazole (PriLOSEC) [address] capsule TAKE 1 CAPSULE BY MOUTH 30 MINUTES BEFORE MORNING MEAL EVERY DAY FOR 30 DAYS for 30 albuterol 90 mcg/actuation inhaler INHALE 2 PUFFS INTO THE LUNGS EVERY 4 HOURS NEEDED FOR 30 DAYS aspirin 81 mg EC tablet Take 81 mg by mouth in the morning. methIMAzole (Tapazole) 5 mg tablet Take 1 tablet by mouth in the morning. No current facility-administered medications on file prior to visit. Allergies Patient has no known allergies. Physical Exam VITAL SIGNS: There were no vitals taken for this visit. Constitutional: Well developed, Well nourished, No acute [...] Judgment normal, Mood normal. Impression: -Chest pain, non cardiac in nature. No recurrence -Afib with documented afib on event mo (more content not included)... [facility] 08-20-2023 Evaluation note Encounter Date Diagnosis Assessment Notes Aug, Hiatal hernia (ICD-10 - K44.9) [employer] Other 09-15-2023 Evaluation note* Encounter Date Diagnosis [...] her bed at night RTO 3 months [employer] Other 09-08-2023 NoteCardiology Clinic Note Chief Complaint: [...] of Abnormal ECG, Arrhythmia, and Atrial fibrillation ([facility]). Surgical History She has no past [...] Patient verbalizes understanding (more content not included)... [facility]09-08-2023 NotePatient here for 2 mo follow up. She started Eliquis. Metoprolol was decreased at last visit. She is doing well, denies chest pain and palpitations. Denies bleeding on Eliquis.[facility]08-08-2023 Procedure note [facility]07-25-2023 NoteCardiology Clinic Note Chief Complaint: follow [...] of Abnormal ECG, Arrhythmia, and Atrial fibrillation ([facility]). Surgical History She has no past [...] was previously not anticoagulated because of low CHI0RA1-PJCd score. However, after further review of her chart, it appears that Years ago, she had an episode that was concerning for CVA versus TIA. MRI did not demonstrate definite evidence of infarct. As such, her [id number] score is actually 4. I discussed with patient need for anticoagulation. She preferred to proceed with 30-day event monitor. Patient has not had a documented atrial fibrillation on ai (more content not included)...[facility]07-25-2023 NotePatient here to discuss abnormal stress test. Had normal echo, and is still wearing 30 day event monitor.[facility]07-07-2023 Note New patient here to re-establish care. She recently presented to [facility] ED for chest pressure and SOB. She was treated for bronchitis at that time. SUMMERS and palpitations have been worsening lately. Review of Systems Cardiovascular: Positive for chest pain (pressure type), dyspnea on exertion and palpitations. All other systems reviewed and are negative.[facility] 06-07-2023 NoteCardiology Clinic Note Chief Complaint: [...] of Abnormal ECG, Arrhythmia, and Atrial fibrillation ([facility]). Surgical History She has no past [...] was previously not anticoagulated because of low [id number]-[id number] score. However, after further review of her chart, it appears that Years ago, she had an episode that was concerning for CVA versus TIA. MRI did not demonstrate definite evidence of infarct. As such, her [id number] score is actually 4. I discussed with [...] plan. -Patient was educat (more content not included)...[facility]07-05-2022 NoteEXAMINATION: CTA CHEST WO W CON [...] Electronically authenticated by: ANDREW RODRIGUEZ Date: 2022-06-05 07:54[facility] noteNo assessment information availableMckitrick Hospital Work Phone: History and physical note Author Oziel Whalen [facility] July 09, 2023 1:21pm Note Date/Time July 09, 2023 1:2 1pm [facility] [address] [place], [place] [id number] Gastroenterology H&P Signed Patient: Liliana Vázquez MR# : [id number] : 1960 Acct:[id number] Age/Sex: 63 / F Adm Date: 3 Loc: Room: Type: [facility] Attending Dr: Oziel Whalen MD Copies [...] signed by Oziel Whalen MD> 07/09/23 1321 [facility] Work Phone: History general Narrative - Reported* Type Description Date Medical History Hyperthyroidism Medical History high blood pressure Medical History Atrial fibrillation [employer] Other Hospital Discharge instructions Additional Instructions DISCHARGE [...] problems. -Follow up with PCP. -Office number [phone].[facility] Work Phone: Summary Purpose Family History No [...] section and content) DATE CREATED AUTHOR 08/08/2020 [facility] DATE CREATED AUTHOR AUTHOR'S ORGANIZ ATION 05/11/2023 [facility] DATE CREATED AUTHOR AUTHOR'S ORGANIZ ATION 07/14/2023 [facility] DATE CREATED AUTHOR AUTHOR'S ORGANIZ ATION 02/08/2024 [facility] Care Teams (unrecognized sec tion and [...] BE BASED ON THE PRIMARY CLINICAL RECORDS. [employer] provides no warranty or guarantee of the accuracy or completeness of information in this document.
[2024-02-13 09:18] LABS: Hemoglobin 13.4 g/dL (12.0-16.0)
--- NOTE | 2024-02-13 10:21 | RT_ITS ---
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 Findings were considered accurate and reproducible. Both pre- and post-bronchodilator values utilized for spirometry. Spirometry (based on pre-bronchodilator values): -FEV1/FVC: Reduced @ 44% -FEV1: Severely reduced @ 42% -FVC: Reduced @ 73% -MYE44-77%: Reduced @ 14% -There is a positive bronchodilator response in FEV1 and FVC. Lung volumes by plethysmography: -RV: Increased @ 141% -TLC: Normal @ 112% Diffusion capacity: -DLCO: Mild reduction @ 70% when corrected for Hb 13.4g/dL Flow-volume loop: -Severe obstructive pattern Impressions: -Spirometry consistent with severe obstruction with a positive bronchodilator response. An elevated RV suggests air trapping. Mild diffusion impairment. This may represent asthma-COPD overlap, COPD with a positive bronchodilator response, or asthma with another condition impairing DLCO such as cardiovascular disease or pulmonary hypertension. Clinical correlation required. Electronically Signed On 02-18-2024 7:35:33 EDT by Tad Cheatham
[2024-02-13] MEDS: ALBUTEROL SULFATE 2.5 MG/3 ML VIAL NEB IH (10:22)
== END 2024-02-13 09:08 | disposition home or self-care (01) ==
LOC: CARD 09:08
PROVIDERS: PCP Family Medicine; Visit Provider Internal Medicine Cardiovascular Disease
DX: R06.02 Shortness of breath (principal)
CPT/HCPCS: 36415; 85018; 94060; 94726; 94729

== ENCOUNTER 2024-02-19 09:57 | Outpatient (OUT) | payer OTHER, SELFPAY ==
--- OUTSIDE RECORDS SUMMARY | 2024-02-19 10:22 | XMS_ITS | CCD ---
Author Organization [facility] Care Team Providers Care Cafe Team Member Name Role Phone MD Payal Franco Attending [...] Unavailable HOY ., DR AGUAYO Consulting Unavailable MD Dede Michaels Primary Care Provider [phone] MD Oziel Whalen Attending Provider [phone] Oziel Whalen Admitting Unavailable Oziel Whalen Attending [...] source) bee venom Drug allergy (disorder) [facility] Rep[facility] (2 sources) venom-honey bee; Translations: [venom-honey bee] Allergy to substance 07-08-20 Anaphylaxis [facility] (2 sources) Sulfamethoxazole / Trimethoprim Drug Allergy upset stomach [employer] Other Medications Current Medications Medication Drug Class(es) Dates Sig (Normalized) Sig (Original) [id number] 200 actuat albuterol 0.09 mg/actuat metered dose [...] 06-13-2022 Chronic Other aftercare (1 source) Other warp dyeing vat tender (current) drug therapy; Translations: [OTH ASSISTED CURRENT DRUG THERAPY] Onset: 04-30-2023 Episodic Other [...] Range Facility Office Visiton 02-07-2024 Follow-up visit [id number] GurpreetLiliana 1960 F Date Provider Department Center 02/07/2024 ANGELLA GRIER Family History Problem Relation Age of Onset Stroke Mother Stroke Father Stroke Sister Family Status - Relation Status Age at Mother Father Sister Level of Service:66502 [place] OFFICE/OUTPATIENT ESTABLISHED LOW MDM 20 MIN Normal [facility] Telemedicineon 12-20-2023 Telemedicine [id number] Liliana Vázquez 1960 Provider Department Center 12/20/2023 ANGELLA GRIER Family History Problem Relation Age of Onset Stroke Mother Stroke Father Stroke Sister Family Status - Relation Status Age at Mother Father Sister Level of Service:77180 [place] OFFICE/OUTPATIENT ESTABLISHED MOD MDM 30 MIN Normal [facility] Office Visiton 08-09-2023 Follow-up visit [id number] GurpreetKatharine davisgamal Willis 1960 Provider Department Center 08/09/2023 ANGELLA GRIER Family History Problem Relation Age of Onset Stroke Mother Stroke Father Stroke Sister Family Status - Relation Status Age at Mother Father Sister Level of Service:77227 [place] OFFICE/OUTPATIENT ESTABLISHED MOD MDM 30-39 MIN Normal [facility] Neeraj 07-09-2023 L - -------- Specimen: [id number] Received: 07/09/23 Status: MITCHELL Antoine Num: [id number] Spec Type: Surgical Subm Dr: Oziel Whalen MD Tissues: A Esophagus Biopsy (ESOPHAGUS BX) Procedures: HE/2, Gross/Micro L4 -------- Age/ Patient Sex Location Account Attending Physician -------- Liliana Vázquez 63/F [id number] Oziel Whalen MD -------- SPEC NUM: [id number] RECD: 07/09/23 STATUS: MITCHELL ANTOINE NUM: [id number] RUSTY: 07/09/23- [facility] DR: Oziel Whalen MD ENTERED: 07/09/23 LUIS DANIEL BARRON: SPEC TYPE: Surgical DEPT: S ORDERED: HE/2, [...] microscopic examination confirms the diagnosis. -------- Specimen: [id number] Received: 07/09/23 Status: MITCHELL Antoine Num: [id number] Spec Type: Surgical Subm Dr: Ozeil Whalen MD Tissues: A Esophagus Biopsy (ESOPHAGUS BX) Procedures: HE/Ivelisse, Gross/Micro L4 -------- Patient: GurpreetLiliana davis [id number] (Continued) -------- Specimen: [id number] Received: 07/09/23 (Continued) Signed (signature on file) Jaylen Sauceda MD 07/11/23 1157 -------- Specimen: [id number] Received: 07/09/23 Status: MITCHELL Antoine Num: [id number] Spec Type: Surgical Subm Dr: Oziel Whalen MD Tissues: A Esophagus Biopsy (ESOPHAGUS BX) Procedures: HE/2, Gross/Micro L4 -------- Patient: Phil Vázquezqueline [id number] (Continued) -------- Specimen: [id number] Received: 07/09/23 (Continued) CPT Codes 51143 -------- -------- Specimen: [id number] Received: 07/09/23 Status: MITCHELL Antoine Num: [id number] Spec Type: Surgical Subm Dr: Oziel Whalen MD Tissues: A Esophagus Biopsy (ESOPHAGUS BX) Procedures: HE/2, Gross/Micro L4 -------- Patient: Liliana Vázquez [id number] (Continued) -------- Signed (signature on file) Jaylen Sauceda MD 07/11/23 1157 [facility] 36on 07-02-2023 36 Patient's event monitor showed 19 mins of afib this morning. Strip was emailed to Dr. Ji who recommended she start Eliquis 5mg bid. I then spoke with patient who agreed to start it. Rx was sent to her pharmacy. [facility] Office Visiton 06-25-2023 Follow-up visit [id number] Liliana Vázquez 1960 F Date Provider Department Center 06/25/2023 3848-ANGELLA JI ROM[facility] No family history on file Level of Service:36949 [place] OFFICE/OUTPATIENT ESTABLISHED MOD MDM 30-39 MIN Normal [facility] Office Visiton 06-07-2023 Follow-up visit [id number] Katharine Vázquezgamal Willis 1960 F Date Provider Department Center 06/07/2023 3848-ANGELLA JI [facility] No family history on file Level of Service:62674 [place] OFFICE/OUTPATIENT NEW MODERATE MDM 45-59 MINUTES Normal [facility] BNPon 04-29-2023 Natriuretic peptide B (Bld) [Mass/Vol] 181.0 pg/mL Normal <=900.0 [facility] Comment on above: Performed By: #### B TABLE LEVER OPERATOR, CMP, CMADM ####[facility] [address] [place] [address]Dr. Madison Barnhart CARDIAC NAVA ADMITon 023 CK [Catalytic activity/Vol] 78 U/L Normal 26-192 [facility] Comment on above: Performed By: #### B TABLE LEVER OPERATOR, CMP, CMADM ####[facility] [address] [place] [address]Dr. Madison Barnhart CK.MB [Mass/Vol] ng/mL Normal <=3.60 [facility] Comment on above: Performed By: #### B TABLE LEVER OPERATOR, CMP, CMADM ####[facility] [address] [place] [address]Dr. Madison Barnhart HSTROP 5.2 pg/mL Normal 4.0-51.3 [facility] Comment on above: Result Comment: CUT- OFF POINTS HAVE BEEN ESTABLISHED BASED ON THE FOURTH UNIVERSAL DEFINITIONS OF MYOCARDIAL INFARCTION. THE UPPER REFERENCE LIMIT (URL) OF TROPONIN, DEFINED THE 99TH PERCENTILE OF cTnI DISTRIBUTION IN A REFERENCE POPULATION, HAS BEEN CONFIRMED THE DECISION THRESHOLD FOR [place] DIAGNOSIS. Performed By: #### B TABLE LEVER OPERATOR, CMP, CMADM ####[facility] [address]cc[address]oc[address] [place] [address]Dr. Madison Barnhart KG 72 ng/mL Normal 9-82 [facility] Comment on above: Performed By: #### B TABLE LEVER OPERATOR, CMP, CMADM ####[facility] [address] [place] [id number]. Madison Obey CBC AUTO DIFFon 04-29-2023 BASO # 0.0 103/ul Normal 0.0-0.1 [facility] Comment on above: Performed By: #### C BC ####[facility] [address] [place], [place] [address]Dr. Madison Barnhart Basophils/100 WBC (Bld) 0.3 % Normal 0.2-2.0 [facility] Comment on above: Performed By: #### C BC ####[facility] [address] [place], [place] [address]Dr. Madison Barnhart EO # 0.1 103/ul Normal 0.0-0.7 [facility] Comment on above: Performed By: #### C BC ####[facility] [address] [place], [place] [address]Dr. Madison Barnhart Eosinophils/100 WBC (Bld) 2.2 % Normal 0.9-7.0 [facility] Comment on above: Performed By: #### C BC ####[facility] [address] [place], [place] [address]Dr. Madison Barnhart Erythrocyte distribution width (RBC) [Ratio] 13.1 % Normal 11.0-15.0 [facility] Comment on above: Performed By: #### C BC ####[facility] [address] [place], [place] [address]Dr. Madison Barnhart Hematocrit (Bld) [Volume fraction] 42.1 % Normal 36.0-48.0 [facility] Comment on above: Performed By: #### C BC ####[facility] [address] [place], [place] [address]Dr. Madison Barnhart Hemoglobin (Bld) [Mass/Vol] 13.9 g/dL Normal 12.0-16.0 [facility] Comment on above: Performed By: #### C BC ####[facility] [address] [place], [place] [address]Dr. Madison Barnhart IG # 0.04 10e3/ul Critically high 0.00-0.03 [facility] Comment on above: Performed By: #### C BC ####[facility] [address] [place] [id number]. Lamarhilario Barnhart IG % 0.7 % Critically high 0.0-0.5 [facility] Comment on above: Performed By: #### C BC ####[facility] [address] [place] [id number]. Madison Obey LYMPH # 0.5 103/ul Critically low 1.2-3.8 [facility] Comment on above: Performed By: #### C BC ####[facility] [address]aw[address] [place] [id number]. Lamarhilario Barnhart Lymphocytes/100 WBC (Bld) 7.9 % Critically low 20.5-60.0 [facility] Comment on above: Performed By: #### C BC ####[facility] [address] [place] [address]Dr. Madison Barnhart MANUAL DIFF REQ NO Normal [facility] Comment on above: Performed By: #### C BC ####[facility] [address] [place] [id number]. Madison Obey MCH (RBC) [Entitic mass] 30.7 pg Normal 26.7-34.0 [facility] Comment on above: Performed By: #### C BC ####[facility] X[address] [place] [id number]. Lamarhilario Barnhart MCHC (RBC) [Mass/Vol] 33.0 g/dL Normal 29.9-35.2 [facility] Comment on above: Performed By: #### C BC ####[facility] [address]fcpt[address] [place] [id number]. Lamarhilario Barnhart MCV (RBC) [Entitic vol] 92.9 fL Normal 81.0-99.0 [facility] Comment on above: Performed By: #### C BC ####[facility] [address] [place] [address]Dr. Madison Barnhart MONO # 0.8 103/ul Normal 0.3-0.8 [facility] Comment on above: Performed By: #### C BC ####[facility] [address] [place] [id number]. Madison Barnhart Monocytes/100 WBC (Bld) 13.1 % Critically high 1.7-12.0 [facility] Comment on above: Performed By: #### C BC ####[facility] [address] [place] [id number]. Madison Barnhart NEUT # 4.6 103/ul Normal 1.4-6.5 [facility] Comment on above: Performed By: #### C BC ####[facility] [address]po[address] [place] [id number]. Madison Barnhart Neutrophils/100 WBC (Bld) 75.8 % Critically high 43.0-75.0 [facility] Comment on above: Performed By: #### C BC ####[facility] [address] [place] [address]Dr. Madison Barnhart Platelet mean volume (Bld) [Entitic vol] 9.4 fL Critically low 9.5-13.5 [facility] Comment on above: Performed By: #### C BC ####[facility] [address] [place] [address]Dr. Madison Barnhart PLT 237 103/ul Normal 150-450 [facility] Comment on above: Performed By: #### C BC ####[facility] [address] [place] [id number]. Madison Barnhart RBC 4.53 106/ul Normal 4.20-5.40 [facility] Comment on above: Performed By: #### C BC ####[facility] [address] [place] [id number]. Madison Barnhart WBC 6.0 103/ul Normal 4.0-11.0 [facility] Comment on above: Performed By: #### C BC ####[facility] [address] [place], [place] [address]Dr. Madison Barnhart CT CHEST W CONon 04-29-2023 [...] by: TL UNLU Date: 2023-04-29 14:57 Normal [facility] D-Dimer High Sensitivityon 0 04-29-2023 D-Dimer High Sensitivity < 200 Normal 0-243 [facility] Comment on above: Result Comment: The reference [...] patients due to co-morbid conditions. PERFORMED BY: [place] [id number] PATHOLOGIST SPUD SORTER HOWIE BARKER M.D. Performed By: #### D DIMER #### [address] No Panel InformationOrdered By: Payal randhawa 04-29-2023 D-Dimer Quantitative (PE/DVT) < 200 ng/mL 0-243 [facility] Comment on above: The reference range for [...] Albumin [Mass/Vol] 3.2 g/dL Critically low 3.4-5.0 [facility] Comment on above: Performed By: #### B TABLE LEVER OPERATOR, CMP, CMADM ####[facility] [address] [place] [address]Dr. Madison Barnhart Albumin/Globulin [Mass ratio] 1.1 {ratio} Normal [facility] Comment on above: Performed By: #### B TABLE LEVER OPERATOR, CMP, CMADM ####[facility] [address] [place] [address]Dr. Madison Barnhart ALP [Catalytic activity/Vol] 119 U/L Critically high 46-116 [facility] Comment on above: Performed By: #### B TABLE LEVER OPERATOR, CMP, CMADM ####[facility] [address]fluqspe[address] [place] [address]Dr. Madison Barnhart ALT [Catalytic activity/Vol] 32 U/L Normal 14-59 [facility] Comment on above: Performed By: #### B TABLE LEVER OPERATOR, CMP, CMADM ####[facility] [address]uz[address] [place] [address]Dr. Madison Barnhart Anion gap [Moles/Vol] 10.4 mmol/L Normal [facility] Comment on above: Performed By: #### B TABLE LEVER OPERATOR, CMP, CMADM ####[facility] [address]rs[address] [place] [address]Dr. Madison Barnhart AST [Catalytic activity/Vol] 21 U/L Normal 15-37 [facility] Comment on above: Performed By: #### B TABLE LEVER OPERATOR, CMP, CMADM ####[facility] [address] [place] [address]Dr. Madison Barnhart Bilirubin [Mass/Vol] 0.6 mg/dL Normal 0.2-1.0 [facility] Comment on above: Performed By: #### B TABLE LEVER OPERATOR, CMP, CMADM ####[facility] [address]xi[address] [place] [address]Dr. Madison Barnhart Calcium [Mass/Vol] 8.2 mg/dL Critically low 8.5-10.1 [facility] Comment on above: Performed By: #### B TABLE LEVER OPERATOR, CMP, CMADM ####[facility] [address] [place] [address]Dr. Madison Barnhart Chloride [Moles/Vol] 107 mmol/L Normal 98-107 [facility] Comment on above: Performed By: #### B TABLE LEVER OPERATOR, CMP, CMADM ####[facility] [address] [place] [address]Dr. Madison Barnhart CO2 [Moles/Vol] 27.7 mmol/L Normal 21.0-32.0 [facility] Comment on above: Performed By: #### B TABLE LEVER OPERATOR, CMP, CMADM ####[facility] [address] [place] [address]Dr. Madison Barnhart Creatinine [Mass/Vol] 1.19 mg/dL Critically high 0.55-1.02 [facility] Comment on above: Performed By: #### B TABLE LEVER OPERATOR, CMP, CMADM ####[facility] [address] [place] [address]Dr. Madison Barnhart EGFR-AF COLOMBIAN 56 mL/min/1.73m2 Critically low >=60 [facility] Comment on above: Performed By: #### B TABLE LEVER OPERATOR, CMP, CMADM ####[facility] [address] [place] [address]Dr. Madison Barnhart EGFR-NON AF COLOMBIAN 46 mL/min/1.73m2 Critically low >=60 [facility] Comment on above: Performed By: #### B TABLE LEVER OPERATOR, CMP, CMADM ####[facility] [address]ef[address] [place] [address]Dr. Madison Barnhart Globulin (S) [Mass/Vol] 3.0 g/dL Normal [facility] Comment on above: Performed By: #### B TABLE LEVER OPERATOR, CMP, CMADM ####[facility] [address] [place] [address]Dr. Madison Barnhart Glucose [Mass/Vol] 122 mg/dL Critically high 74-106 [facility] Comment on above: Performed By: #### B TABLE LEVER OPERATOR, CMP, CMADM ####[facility] [address] [place] [address]Dr. Madison Barnhart Potassium [Moles/Vol] 4.1 mmol/L Normal 3.5-5.1 [facility] Comment on above: Performed By: #### B TABLE LEVER OPERATOR, CMP, CMADM ####[facility] [address] [place] [address]Dr. Madison Barnhart Protein [Mass/Vol] 6.2 g/dL Critically low 6.4-8.2 [facility] Comment on above: Performed By: #### B TABLE LEVER OPERATOR, CMP, CMADM ####[facility] [address] [place] [address]Dr. Madison Barnhart Sodium [Moles/Vol] 141 mmol/L Normal 136-145 [facility] Comment on above: Performed By: #### B TABLE LEVER OPERATOR, CMP, CMADM ####[facility] Hzjxsusure[address] [place] [address]Dr. Madison Barnhart Urea nitrogen [Mass/Vol] 16.0 mg/dL Normal 7.0-18.0 [facility] Comment on above: Performed By: #### B TABLE LEVER OPERATOR, CMP, CMADM ####[facility] [address]usu[address] [place] [address]Dr. Madison Barnhart Urea nitrogen/Creatinine [Mass ratio] 13.4 mg/mg Normal [facility] Comment on above: Performed By: #### B TABLE LEVER OPERATOR, CMP, CMADM ####[facility] [address] [place], [place] [address]Dr. Madison Barnhart TROPONIN, HIGH SENSITIVITYon 04-29-2023 HSTROP 5.2 pg/mL Normal 4.0-51.3 [facility] Comment on above: Result Comment: CUT- OFF POINTS HAVE BEEN ESTABLISHED BASED ON THE FOURTH UNIVERSAL DEFINITIONS OF MYOCARDIAL INFARCTION. THE UPPER REFERENCE LIMIT (URL) OF TROPONIN, DEFINED THE 99TH PERCENTILE OF cTnI DISTRIBUTION IN A REFERENCE POPULATION, HAS BEEN CONFIRMED THE DECISION THRESHOLD FOR [place] DIAGNOSIS. Performed By: #### H STROPN #### [facility] [address] [place] [address] Dr. Madison Barnhart XR CHEST 1 Von [...] by: LEEROY VILLA Date: 2023-04-29 11:45 Normal [facility] CREATININE CLEARon CREA CLEARANCE 79.62 ml/min Normal 75.00-115.00 [facility] Comment on above: Result Comment: Prev iously reported as: 1.74 On 06/11/2022 10:36 By [email or web address] Performed By: #### C REACL #### [facility] [address] [place] [address] [address] Madison Barnhart CREA, 24 HR UR 1359.90 mg/24 hr Normal 800.00-1, 800. 00 [facility] Comment on above: Performed By: #### C REACL #### [facility] [address] [place] [address] [address] Madison Barnhart Creatinine [Mass/Vol] 1.08 mg/dL Critically high 0.55-1.02 [facility] Comment on above: Result Comment: repe ated Previously reported as: 49.42 On 06/11/2022 10:36 By [email or web address] Performed By: #### C REACL #### [facility] [address] [place] [address] [address] Madison Barnhart UR TOT VOL 3000 ml/24 HR Normal [facility] Comment on above: Performed By: #### C REACL #### [facility] [address] [place] [address] [address] Madison Barnhart URINE CREAT 45.33 mg/dL Normal 20.00-300.00 [facility] Comment on above: Performed By: #### C REACL #### [facility] [address] [place] [address] [address] Madison Barnhart ECHOCARDIO M/2D COMPLETEon 0 06-11-2022 ECHOCARDIO M/2D COMPLETE Patient: LILIANA VÁZQUEZ Exam Date: 06/11/2022 : 1960 Gender:F Ordering : DR DEDE MICHAELS . Admission #: [id number] Family : Order #: [id number] CLICK HERE TO VIEW EXAM ECHOCARDIOGRAM REPORT [...] M.D. on 06/11/2022 at 16:26 Normal [facility] PROTEIN 24HR URINEon 022 T PROT, 24 HR UR 123.0 mg/24 hr Normal <=149.1 [facility] Comment on above: Performed By: #### P ROT24U ####[facility] [address] [place] [address]Dr. Madison Barnhart UR PROT 4.1 mg/dL Normal <=11.9 [facility] Comment on above: Performed By: #### P ROT24U ####[facility] [address] [place] [address]Dr. Madison Barnhart UR TOT VOL 3000 ml/24 HR Normal [facility] Comment on above: Performed By: #### P ROT24U ####[facility] [address]av[address] [place] [address]Dr. Madison Barnhart INSULINon 06-05-2022 Insulin 10.2 uIU/mL Normal 2.6-24.9 [facility] Comment on above: Performed By: #### I NSULIN ####[facility] [address] [place] [address]Dr. Madison Barnhart BNPon 06-02-2022 Natriuretic peptide B (Bld) [Mass/Vol] 215.0 pg/mL Normal <=900.0 [facility] Comment on above: Performed By: #### L IPID, T7, TSH, BNP, CMP #### [facility] [address] [place] [address] [address] Madison Barnhart CBC AUTO DIFFon 06-02-2022 BASO # 0.0 103/ul Normal 0.0-0.1 [facility] Comment on above: Performed By: #### C BC ####[facility] [address] [place], [place] [address]Dr. Madison Barnhart Basophils/100 WBC (Bld) 0.7 % Normal 0.2-2.0 [facility] Comment on above: Performed By: #### C BC ####[facility] [address] [place] [id number]. Madison Barnhart EO # 0.1 103/ul Normal 0.0-0.7 [facility] Comment on above: Performed By: #### C BC ####[facility] [address] [place] [address]Dr. Madison Barnhart Eosinophils/100 WBC (Bld) 1.5 % Normal 0.9-7.0 [facility] Comment on above: Performed By: #### C BC ####[facility] [address] [place] [address]Dr. Madison Barnhart Erythrocyte distribution width (RBC) [Ratio] 13.2 % Normal 11.0-15.0 [facility] Comment on above: Performed By: #### C BC ####[facility] [address] [place] [address]Dr. Madison Barnhart Hematocrit (Bld) [Volume fraction] 42.2 % Normal 36.0-48.0 [facility] Comment on above: Performed By: #### C BC ####[facility] [address] [place] [address]Dr. Madison Barnhart Hemoglobin (Bld) [Mass/Vol] 13.7 g/dL Normal 12.0-16.0 [facility] Comment on above: Performed By: #### C BC ####[facility] [address] [place] [address]Dr. Madison Barnhart IG # 0.04 10e3/ul Critically high 0.00-0.03 [facility] Comment on above: Performed By: #### C BC ####[facility] [address] [place] [address]Dr. Madison Barnhart IG % 0.7 % Critically high 0.0-0.5 [facility] Comment on above: Performed By: #### C BC ####[facility] [address] [place] [address]Dr. Madison Obey LYMPH # 1.3 103/ul Normal 1.2-3.8 [facility] Comment on above: Performed By: #### C BC ####[facility] [address]hb[address] [place] [id number]. Madison Obey Lymphocytes/100 WBC (Bld) 23.3 % Normal 20.5-60.0 [facility] Comment on above: Performed By: #### C BC ####[facility] [address] [place] [address]Dr. Lamarhilario Barnhart MANUAL DIFF REQ NO Normal [facility] Comment on above: Performed By: #### C BC ####[facility] [address] [place] [address]Dr. Madison Obey MCH (RBC) [Entitic mass] 30.6 pg Normal 26.7-34.0 [facility] Comment on above: Performed By: #### C BC ####[facility] [address] [place] [address]Dr. Madison Obey MCHC (RBC) [Mass/Vol] 32.5 g/dL Normal 29.9-35.2 [facility] Comment on above: Performed By: #### C BC ####[facility] [address]vmornmsg[address] [place] [address]Dr. Lamarhilario Barnhart MCV (RBC) [Entitic vol] 94.2 fL Normal 81.0-99.0 The [facility] Comment on above: Performed By: #### C BC ####[facility] [address] [place] [id number]. Lamarhilario Barnhart MONO # 0.5 103/ul Normal 0.3-0.8 [facility] Comment on above: Performed By: #### C BC ####[facility] [address] [place] [address]Dr. Lamarhilario Barnhart Monocytes/100 WBC (Bld) 8.8 % Normal 1.7-12.0 The [facility] Comment on above: Performed By: #### C BC ####[facility] [address] [place] [id number]. Lamarhilario Obey NEUT # 3.5 103/ul Normal 1.4-6.5 The [facility] Comment on above: Performed By: #### C BC ####[facility] [address] [place] [id number]. Madison Obey Neutrophils/100 WBC (Bld) 65.0 % Normal 43.0-75.0 The [facility] Comment on above: Performed By: #### C BC ####[facility] [address] [place] [address]Dr. Madison Barnhart Platelet mean volume (Bld) [Entitic vol] 9.0 fL Critically low 9.5-13.5 The [facility] Comment on above: Performed By: #### C BC ####[facility] [address] [place] [id number]. Madison Barnhart PLT 245 103/ul Normal 150-450 [facility] Comment on above: Performed By: #### C BC ####[facility] [address] [place] [address]Dr. Madison Barnhart RBC 4.48 106/ul Normal 4.20-5.40 [facility] Comment on above: Performed By: #### C BC ####[facility] [address] [place] [id number]. Madsion Barnhart WBC 5.4 103/ul Normal 4.0-11.0 The [facility] Comment on above: Performed By: #### C BC ####[facility] [address] [place] [id number] Barnhart FREE THYROXINE INDEX T7on FTI 2.26 Normal 1.30-4.50 The [facility] Comment on above: Performed By: #### L IPID, T7, TSH, BNP, CMP #### [facility] [address] [place], [place] [address] Dr. Madison Barnhart T3U 31.0 % Normal 30.0-39.0 The [facility] Comment on above: Performed By: #### L IPID, T7, TSH, BNP, CMP #### [facility] [address] [place] [address] [address] Madison Barnhart T4 [Mass/Vol] 7.30 ug/dL Normal 4.80-13.90 The [facility] Comment on above: Performed By: #### L IPID, T7, TSH, BNP, CMP #### [facility] [address] [place] [address] [address] Madison Barnhatr GLYCOHEMOGLOBIN A1Con 2021 ADA RECOMMENDATION SEE BELOW Normal The [facility] Comment on above: Result Comment: ADA RECOMMENDED LIMIT 4.0 - 6.0 ADA THERAPEUTIC TARGET < 7.0 ACTION SUGGESTED > 7.0 Performed By: #### A 1C ####[facility] [address] [place] [address]Dr. Madison Barnhart Glucose [Mass/Vol] 117 mg/dL Normal The [facility] Comment on above: Performed By: #### A 1C ####[facility] [address] [place] [address]Dr. Madison Barnhart HbA1c (Bld) [Mass fraction] 5.7 % Normal 4.5-6.2 [facility] Comment on above: Performed By: #### A 1C ####[facility] [address] [place] [address]Dr. Madison Barnhart IRONon 06-02-2022 Iron [Mass/Vol] 85.0 ug/dL Normal 50.0-170.0 [facility] Comment on above: Performed By: #### I JACK ####[facility] [address] [place] [address]Dr. Madison Barnhart LIPID PROFILEon 06-02-2022 CHOL-HDL RATIO NORM SEE BELOW Normal The [facility] Comment on above: Result Comment: 3.3 - 4.4 LOW RISK 4.4 - 7.1 AVERAGE RISK 7.1 - 11.0 MODERATE RISK >11.0 HIGH RISK Performed By: #### L IPID, T7, TSH, BNP, CMP #### [facility] [address] [place] [address] [address] Madison Barnhart Cholesterol [Mass/Vol] 238 mg/dL Critically high <=200 [facility] Comment on above: Performed By: #### L IPID, T7, TSH, BNP, CMP #### [facility] [address] [place] [address] [address] Madison Barnhart Cholesterol in HDL [Mass/Vol] 90 mg/dL Critically high 40-60 [facility] Comment on above: Performed By: #### L IPID, T7, TSH, BNP, CMP #### [facility] [address] [place] [address] [address] Madison Barnhart Cholesterol in LDL [Mass/Vol] 132.4 mg/dL Normal [facility] Comment on above: Performed By: #### L IPID, T7, TSH, BNP, CMP #### [facility] [address] [place] [address] Dr. Madison Barnhart Cholesterol.total/Chol esterol in HDL [Mass ratio] 2.6 {ratio} Normal [facility] Comment on above: Performed By: #### L IPID, T7, TSH, BNP, CMP #### [facility] [address] [place] [address] Dr. Madison Barnhart HDL NORMAL > or = 60 mg/dl - LO W CARDIOVASCULAR RISK <40 mg/dl - HIGH CARDIOVASCULAR RISK Normal [facility] Comment on above: Performed By: #### L IPID, T7, TSH, BNP, CMP #### [facility] [address] [place] [address] [address] Madison Barnhart LDL CALC NORMAL SEE BELOW Normal [facility] Comment on above: Result Comment: <100 mg/dl OPTIMAL 100 - 129 mg/dl NEAR OR ABOVE OPTIMAL 130 - 159 mg/dl BORDERLINE HIGH 160 - 189 mg/dl HIGH >190 mg/dl VERY HIGH Performed By: #### L IPID, T7, TSH, BNP, CMP #### [facility] [address] [place] [address] Dr. Madison Barnhart Triglyceride [Mass/Vol] 78 mg/dL Normal <=150 [facility] Comment on above: Performed By: #### L IPID, T7, TSH, BNP, CMP #### [facility] [address] [place] [address] Dr. Madison Barnhart VLDL CALC 15.6 mg/dL Normal [facility] Comment on above: Performed By: #### L IPID, T7, TSH, BNP, CMP #### [facility] [address] [place] [address] Dr. Madison Barnhart PROF 14(COMP METB)on 022 Albumin [Mass/Vol] 3.5 g/dL Normal 3.4-5.0 [facility] Comment on above: Performed By: #### L IPID, T7, TSH, BNP, CMP #### [facility] [address] [place] [address] Dr. Madison Barnhart Albumin/Globulin [Mass ratio] 1.1 {ratio} Normal [facility] Comment on above: Performed By: #### L IPID, T7, TSH, BNP, CMP #### [facility] [address] [place] [address] Dr. Madison Barnhart ALP [Catalytic activity/Vol] 92 U/L Normal 46-116 [facility] Comment on above: Performed By: #### L IPID, T7, TSH, BNP, CMP #### [facility] [address] [place] [address] Dr. Madison Barnhart ALT [Catalytic activity/Vol] 28 U/L Normal 14-59 [facility] Comment on above: Performed By: #### L IPID, T7, TSH, BNP, CMP #### [facility] [address] [place] [address] Dr. Madison Barnhart Anion gap [Moles/Vol] 10.6 mmol/L Normal [facility] Comment on above: Performed By: #### L IPID, T7, TSH, BNP, CMP #### [facility] [address] [place] [address] Dr. Madison Barnhart AST [Catalytic activity/Vol] 17 U/L Normal 15-37 [facility] Comment on above: Performed By: #### L IPID, T7, TSH, BNP, CMP #### [facility] [address] [place] [address] Dr. Madison Barnhart Bilirubin [Mass/Vol] 0.5 mg/dL Normal 0.2-1.0 [facility] Comment on above: Performed By: #### L IPID, T7, TSH, BNP, CMP #### [facility] [address] [place] [address] [address] Madison Barnhart Calcium [Mass/Vol] 8.4 mg/dL Critically low 8.5-10.1 Th e [facility] Comment on above: Performed By: #### L IPID, T7, TSH, BNP, CMP #### [facility] [address] [place] [address] [address] Madison Barnhart Chloride [Moles/Vol] 105 mmol/L Normal 98-107 [facility] Comment on above: Performed By: #### L IPID, T7, TSH, BNP, CMP #### [facility] [address] [place] [address] Dr. Madison Barnhart CO2 [Moles/Vol] 28.3 mmol/L Normal 21.0-32.0 [facility] Comment on above: Performed By: #### L IPID, T7, TSH, BNP, CMP #### [facility] [address] [place] [address] Dr. Madison Barnhart Creatinine [Mass/Vol] 1.08 mg/dL Critically high 0.55-1.02 [facility] Comment on above: Performed By: #### L IPID, T7, TSH, BNP, CMP #### [facility] [address] [place] [address] Dr. Madison Barnhart EGFR-AF COLOMBIAN >60 Normal >=60 [facility] Comment on above: Performed By: #### L IPID, T7, TSH, BNP, CMP #### [facility] [address] [place] [address] Dr. Madison Barnhart EGFR-NON AF COLOMBIAN 52 mL/min/1.73m2 Critically low >=60 [facility] Comment on above: Performed By: #### L IPID, T7, TSH, BNP, CMP #### [facility] [address] [place] [address] Dr. Madison Barnhart Globulin (S) [Mass/Vol] 3.3 g/dL Normal [facility] Comment on above: Performed By: #### L IPID, T7, TSH, BNP, CMP #### [facility] [address] [place] [address] [address] Madison Barnhart Glucose [Mass/Vol] 99 mg/dL Normal 74-106 [facility] Comment on above: Performed By: #### L IPID, T7, TSH, BNP, CMP #### [facility] [address] [place] [address] Dr. Madison Barnhart Potassium [Moles/Vol] 3.9 mmol/L Normal 3.5-5.1 [facility] Comment on above: Performed By: #### L IPID, T7, TSH, BNP, CMP #### [facility] [address] [place] [address] Dr. Madison Barnhart Protein [Mass/Vol] 6.8 g/dL Normal 6.4-8.2 [facility] Comment on above: Performed By: #### L IPID, T7, TSH, BNP, CMP #### [facility] [address] [place] [address] Dr. Madison Barnhart Sodium [Moles/Vol] 140 mmol/L Normal 136-145 [facility] Comment on above: Performed By: #### L IPID, T7, TSH, BNP, CMP #### [facility] [address] [place] [address] Dr. Madison Barnhart Urea nitrogen [Mass/Vol] 22.0 mg/dL Critically high 7.0-18.0 [facility] Comment on above: Performed By: #### L IPID, T7, TSH, BNP, CMP #### [facility] [address] [place] [address] Dr. Madison Barnhart Urea nitrogen/Creatinine [Mass ratio] 20.4 mg/mg Normal [facility] Comment on above: Performed By: #### L IPID, T7, TSH, BNP, CMP #### [facility] [address] [place] [address] Dr. Madison Barnhart TSHon 06-02-2022 TSH 1.046 uIU/mL Normal 0.358-3.740 [facility] Comment on above: Performed By: #### L IPID, T7, TSH, BNP, CMP #### [facility] [address] [place] [address] [address] Madison Barnhart Ambulatory Clinical Summaryo n 08-09-2020 Ambulatory Clinical Summary {[id number] Normal [facility] Coding Summary.on 10-27-2019 Coding Summary. CODING DATE: 10/27/2019 FINAL [facility] STATUS: Home (Routine DC) PAYOR: Ivana [...] Christa Marcus Date Saved: 10/27/2019 03:40 pm [facility] Vital Signs Date Time Vital Sign Value Performing Clinician Facility 08-16-2023 14:00-0400 Body height 172.72 cm Markell Odell Other [employer] Other 08-16-2023 14:00-0400 Body mass index (BMI) [Ratio] 25.39 kg/m2 Markell Odell Other [employer] Other 08-16-2023 14:00-0400 Body weight 75.75 kg Markell Odell Other [employer] Other 08-16-2023 14:00-0400 Diastolic blood pressure 78 mm[Hg] Markell Odell Other [employer] Other 08-16-2023 14:00-0400 Systolic blood pressure 138 mm[Hg] Markell Odell Other [facility] Other 07-09-2023 14:02-0400 Diastolic blood pressure 67 mm[Hg] MD Dede Michaels Work Phone: [facility] 07-09-2023 14:02-0400 Heart rate 55 /min MD Dede Michaels Work Phone: [facility] 07-09-2023 14:02-0400 Respiratory rate 16 /min MD Dede Michaels Work Phone: [facility] 07-09-2023 14:02-0400 SaO2% (BldA) [Mass fraction] 98 % MD Dede Michaels Work Phone: [facility] 07-09-2023 14:02-0400 Systolic blood pressure 128 mm[Hg] MD Dede Michaels Work Phone: [facility] 07-09-2023 12:16-0400 Body height 172.72 cm MD Dede Michaels Work Phone: [facility] 07-09-2023 12:16-0400 Body temperature 97.8 [degF] MD Dede Michaels Work Phone: [facility] 07-09-2023 12:16-0400 Body weight 77.11 kg MD Dede Michaels Work Phone: [facility] Encounters Encounter Date Encounter Type Care Provider Facility Start: 02-07-2024 End: 02-07-2024 ambulatory [facility] Start: 12-20-2023 End: 12-20-2023 ambulatory [facility] Start: 08-20-2023 End: 08-20-2023 ambulatory Markell Odell Other [facility] Other Start: 08-20-2023 Telephone encounter Markell Valer[facility] Start: 08-16-2023 End: 08-16-2023 ambulatory Markell Odell Other [facility] Other Start: 08-16-2023 Office outpatient visit 15 minutes Markell Odell [facility] Start: 08-09-2023 End: 08-12-2023 ambulatory [facility] Start: 07-09-2023 End: 07-09-2023 ambulatory Oziel Whalen Facility:[facility] Start: 07-09-2023 End: 07-09-2023 Admission to same day surgery center MD Dede Michaels Work Phone: [facility] Work Phone: Start: 07-09-2023 End: 07-09-2023 ambulatory MD Dede Michaels Work Phone: [facility] Work Phone: Start: 06-25-2023 End: 06-25-2023 ambulatory [facility] Start: 06-07-2023 End: 06-07-2023 ambulatory [facility] Start: 04-29-2023 End: 04-29-2023 ambulatory PAYAL FRANCO . [facility] Work Phone: Start: 04-29-2023 End: 04-29-2023 Departed Referred MD Payal Franco Work Phone: [facility] Work Phone: Start: 06-11-2022 End: 06-12-[address] DEDE MICHAELS . Facility:[facility] Start: 06-02-2022 End: 06-03-[address] DEDE MICHAELS . Facility:[facility] Procedures Date Procedure Procedure Detail Performing Clinician Start: 07-09-2023 Esophagogastroduodenoscopy MD Dede Michaels Work Phone: Plan of Treatment Date Care Activity Detail Author Start: 07-09-2023 [facility] Patient Education Hiatal Hernia (DC) [facility] Work Phone: Payers Date Payer Category Payer Self-pay [id number] 2023 Unknown [id number] [facility] [id number] 1960 Unknown [id number] 2.16.84 [id number] 1960 Unknown [id number] 2.16.84 [id number] 1960 Unknown [id number] 2.16.84 [id number] 1958 Unknown [id number] Unknown [place] BC/BS [id number] Unknown [id number] 2.16.8 [id number] Unknown [id number] 2.16.8 [id number] Social History Date Type Detail Facility Tobacco smoking status OHIS Unknown if ever smoked [facility] Work Phone: Start: 1960 Sex Assigned At Female F [facility] Start: 07-09-2023 Tobacco smoking status NHIS Never smoked tobacco (finding) [facility] Sex Assigned At Sex Assigned At Bir th [facility] Other Goals Date Patient Goal Desired Activity [...] -Patient self discontinue (more content not included)... [facility] 02-07-2024 Note Patient here for 2 [...] All other systems reviewed and are negative. [facility] 12-20-2023 Note Patient being seen v ia telemedicine for bradycardia s/p thyroidectomy. Last night HR was running 47-49. Review of Systems All other systems reviewed and are negative. [facility] 12-20-2023 Note Cardiology Clinic No te [...] The patient was notified that using 3rd democrat telecommunication application (e.g., [employer]) is not HIPPA compliant and may carry some privacy risks. Yes The visit was conducted [id number] with the use of audio and video [...] of Abnormal ECG, Arrhythmia, and Atrial fibrillation ([facility]). Surgical History She has no past surgical [...] on event mo (more content not included)... [facility] 08-20-2023 Evaluation note Encounter Date Diagnosis Assessment Notes Aug, Hiatal hernia (ICD-10 - K44.9) [employer] [facility] Other 09-15-2023 Evaluation note* Encounter Date [...] her bed at night RTO 3 months [employer] [facility] Other 09-08-2023 NoteCardiology Clinic Note Chief [...] of Abnormal ECG, Arrhythmia, and Atrial fibrillation ([facility]). Surgical History She has no past surgical [...] Patient verbalizes understanding (more content not included)... [facility]09-08-2023 NotePatient here for 2 mo follow up. She started Eliquis. Metoprolol was decreased at last visit. She is doing well, denies chest pain and palpitations. Denies bleeding on Eliquis.[facility]08-08-2023 Procedure note [facility]07-25-2023 NoteCardiology Clinic Note Chief Complaint: follow up [...] of Abnormal ECG, Arrhythmia, and Atrial fibrillation (CMS/[facility]). Surgical History She has no past surgical [...] was previously not anticoagulated because of low RHV3QO8-UAYm score. However, after further review of her chart, it appears that Years ago, she had an episode that was concerning for CVA versus TIA. MRI did not demonstrate definite evidence of infarct. As such, her REI9BS8-TDLa score is actually 4. I discussed with patient need for anticoagulation. She preferred to proceed with 30-day event monitor. Patient has not had a documented atrial fibrillation on ai (more content not included)...[facility]07-25-2023 NotePatient here to discuss abnormal stress test. Had normal echo, and is still wearing 30 day event monitor.[facility]07-07-2023 Note New patient here to re-establish care. She recently presented to [facility] ED for chest pressure and SOB. She was treated for bronchitis at that time. SUMMERS and palpitations have been worsening lately. Review of Systems Cardiovascular: Positive for chest pain (pressure type), dyspnea on exertion and palpitations. All other systems reviewed and are negative.[facility] 06-07-2023 NoteCardiology Clinic Note Chief Complaint: [...] of Abnormal ECG, Arrhythmia, and Atrial fibrillation ([facility]). Surgical History She has no past surgical [...] was previously not anticoagulated because of low GNQ4ZA7-OVCx score. However, after further review of her chart, it appears that Years ago, she had an episode that was concerning for CVA versus TIA. MRI did not demonstrate definite evidence of infarct. As such, her CXI0BO5-IYGd score is actually 4. I discussed with [...] plan. -Patient was educat (more content not included)...[facility]07-05-2022 NoteEXAMINATION: CTA CHEST WO W CON [...] Electronically authenticated by: ANDREW RODRIGUEZ Date: 2022-06-05 07:54[facility] noteNo assessment information availableK[facility] Work Phone: History and physical note Author Oziel Whalen [facility] July 09, 2023 1:21pm Note Date/Time July 09, 2023 1:2 1pm [facility] [address] [place] [address] Gastroenterology H&P Signed Patient: Liliana Vázquez MR# : [id number] : 1960 Acct:[id number] Age/Sex: 63 / F Adm Date: 3 Loc: Room: Type: [facility] Attending Dr: Oziel Whalen MD Copies to: [...] signed by Oziel Whalen MD> 07/09/23 1321 [facility] Work Phone: History general Narrative - Reported* Type Description Date Medical History Hyperthyroidism Medical History high blood pressure Medical History Atrial fibrillation [employer] Other Hospital Discharge instructions Additional Instructions [...] - Do NOT operate machinery such as [employer], [employer], snow blowers, sewing machines, etc. for 24 [...] problems. -Follow up with PCP. -Office number [phone].[facility] Work Phone: Summary Purpose Family History No [...] and content) DATE CREATED AUTHOR 08/08/2020 [facility] DATE CREATED AUTHOR AUTHOR'S ORGANIZ ATION 05/11/2023 Trey Winters [facility] DATE CREATED AUTHOR AUTHOR'S ORGANIZ ATION 07/14/2023 [facility] DATE CREATED AUTHOR AUTHOR'S ORGANIZ ATION 02/08/2024 [facility] Care Teams (unrecognized sec tion and content) Team Status: Inactive Member Role Status Dates Payal Franco MD Attending Provider Active Team Status: Active Member Role Status Dates Dede Michaels MD Primary Care Provider Active Team Status: Inactive Member Role Status Dates Payal Franco MD Attending Provider Active Dede Michaels MD Primary Care Provider Active Team Status: Inactive Member Role Status Dates Dede M MD [place] Primary Care Provider Active Oziel Whalen MD [...] BE BASED ON THE PRIMARY CLINICAL RECORDS. [facility]. provides no warranty or guarantee of the accuracy or completeness of information in this document.
--- NOTE | 2024-02-19 10:27 | XR_ITS ---
The [address] [address] Patient Name: KAMAR DE LA TORRE MRN: [id number] date: 1960 Sex: F Assigned Patient Location: LAB Current Patient Location: LAB Accession/Order Number: [id number] Exam Date: 02/19/2024 10:34 Report Date: 02/19/2024 13:59 At the request of: TAQUERIA CAMACHO Procedure: XR chest 2V EXAMINATION: XR chest 2V HISTORY: Severe Persistent asthma J45.50 COMPARISON: 04/29/2023 TECHNIQUE: PA and lateral FINDINGS: LUNGS: No significant pulmonary parenchymal abnormalities. VASCULATURE: No increased pulmonary vasculature. PLEURA: No pneumothorax, effusion, or pleural thickening. CARDIAC: No cardiomegaly or cardiac silhouette abnormality. MEDIASTINUM: No visible mass or adenopathy. BONES: No fracture or visible bone lesion. OTHER: Negative. XR/XR chest 2V IMPRESSION: No acute cardiopulmonary process Electronically authenticated by: GRAHAM HARPER Date: 02/19/2024 13:59
[2024-02-19 10:50] LABS: Basophils Percent Auto 0.5 % (0.2-2.0); Eosinophils Absolute Auto 0.1 10^3/uL (0.0-0.7); Eosinophils Percent Auto 1.8 % (0.9-7.0); Hematocrit 42.3 % (36.0-48.0); Hemoglobin 13.5 g/dL (12.0-16.0); Immature Granulocytes Abs Auto 0.01 10^3/uL (0.00-0.03); Immature Granulocytes Pct Auto 0.2 % (0.0-0.5); Lymphocytes Absolute Auto 0.9 10^3/uL (1.2-3.8); Lymphocytes Percent Auto 20.6 % (20.5-60.0); Mean Corpuscular HGB Conc 31.9 g/dL (29.9-35.2); Mean Corpuscular Hemoglobin 30.3 pg (26.7-34.0); Mean Corpuscular Volume 94.8 fL (81.0-99.0); Mean Platelet Volume 9.7 fL (9.5-13.5); Monocytes Absolute Auto 0.3 10^3/uL (0.3-0.8); Monocytes Percent Auto 6.8 % (1.7-12.0); Neutrophils Absolute Auto 3.1 10^3/uL (1.4-6.5); Neutrophils Percent Auto 70.1 % (43.0-75.0); Platelet Count 283 10^3/uL (150-450); Red Blood Count 4.46 10^6/uL (4.20-5.40); Red Cell Distribution Width 12.7 % (11.0-15.0); White Blood Count 4.4 10^3/uL (4.0-11.0)
[2024-02-19 11:12] LABS: Erythrocyte Sedimentation Rate 17 mm/hr (<=30)
[2024-02-20 06:09] LABS: Rheumatoid Factor (RF) <10.0 IU/mL (<14.0)
[2024-02-20 12:09] LABS: Anti-CCP Ab, IgG/IgA 1 units (0-19)
[2024-02-20 14:10] LABS: ANA Direct Negative (Negative); Angiotensin-Converting Enzyme 68 U/L (14-82); Antiscleroderma-70 Antibodies <0.2 AI (0.0-0.9)
[2024-02-20 20:07] LABS: Anti-MPO Antibodies <0.2 units (0.0-0.9); Anti-PR3 Antibodies <0.2 units (0.0-0.9); Cytoplasmic (C-ANCA) <1:20 titer (Neg:<1:20); Perinuclear (P-ANCA) <1:20 titer (Neg:<1:20)
[2024-02-25 10:13] LABS: Immunoglobulin E, Total 4 IU/mL (6-495)
== END 2024-02-19 09:58 | disposition home or self-care (01) ==
LOC: LAB 09:59
PROVIDERS: PCP Family Medicine; Visit Provider Internal Medicine
DX: R94.2 Abnormal results of pulmonary function studies (principal); R68.2 Dry mouth, unspecified; J45.50 Severe persistent asthma, uncomplicated
CPT/HCPCS: 36415; 71046; 82164; 82785; 83516; 85025; 85652; 86037; 86038; 86200; 86235; 86431

== ENCOUNTER 2024-02-21 10:48 | Outpatient (OUT) | payer OTHER, SELFPAY ==
--- OUTSIDE RECORDS SUMMARY | 2024-02-21 10:54 | XMS_ITS | CCD ---
Author Organization [facility] Care Team Providers Care Trust Administrative Assistant Name Role Phone MD Payal Franco Attending [...] Unavailable MD Dede Michaels Primary Care Provider [phone] MD Oziel Whalen Attending Provider Oziel Whalen [...] source) bee venom Drug allergy (disorder) [facility] Repository (2 sources) venom-honey bee; Translations: [venom-honey bee] Allergy to substance 07-08-20 Anaphylaxis [facility] (2 sources) Sulfamethoxazole / Trimethoprim Drug Allergy upset stomach Splash Other Medications Current Medications Medication Drug Class(es) Dates Sig (Normalized) Sig (Original) [id number] 200 actuat albuterol 0.09 mg/actuat metered dose [...] 06-13-2022 Chronic Other aftercare (1 source) Other rn long term care (current) drug therapy; Translations: [OTH RESIDENTIAL CURRENT DRUG THERAPY] Onset: 04-30-2023 Episodic Other [...] Range Facility Office Visiton 02-07-2024 Follow-up visit [id number] GurpreetLiliana 1960 F Date Provider Department Center 02/07/2024 ANGELLA GRIER Family History Problem Relation Age of Onset Stroke Mother Stroke Father Stroke Sister Family Status - Relation Status Age at Mother Father Sister Level of Service:16772 IN OFFICE/OUTPATIENT ESTABLISHED LOW MDM 20 MIN Normal [facility] Telemedicineon 12-20-2023 Telemedicine [id number] Liliana Vázquez 1960 Provider Department Center 12/20/2023 ANGELLA GRIER Family History Problem Relation Age of Onset Stroke Mother Stroke Father Stroke Sister Family Status - Relation Status Age at Mother Father Sister Level of Service:78325 IN OFFICE/OUTPATIENT ESTABLISHED MOD MDM 30 MIN Normal [facility] Office Visiton 08-09-2023 Follow-up visit [id number] GurpreetKatharine davisgamal Willis 1960 Provider Department Center 08/09/2023 ANGELLA GRIER Family History Problem Relation Age of Onset Stroke Mother Stroke Father Stroke Sister Family Status - Relation Status Age at Mother Father Sister Level of Service:25670 IN OFFICE/OUTPATIENT ESTABLISHED MOD MDM 30-39 MIN Normal [facility] Neeraj 07-09-2023 L - -------- Specimen: [id number] Received: 07/09/23 Status: MITCHELL Antoine Num: [id number] Spec Type: Surgical Subm Dr: Oziel Whalen MD Tissues: A Esophagus Biopsy (ESOPHAGUS BX) Procedures: HE/2, Gross/Micro L4 -------- Age/ Patient Sex Location Account Attending Physician -------- Liliana Vázquez 63/F [id number] Oziel Whalen MD -------- SPEC NUM: [id number] RECD: 07/09/23 STATUS: MITCHELL ANTOINE NUM: [id number] RUSTY: 07/09/23- [facility] DR: Oziel Whalen MD ENTERED: [...] microscopic examination confirms the diagnosis. -------- Specimen: [id number] Received: 07/09/23 Status: MITCHELL Antoine Num: [id number] Spec Type: Surgical Subm Dr: Oziel Whalen MD Tissues: A Esophagus Biopsy (ESOPHAGUS BX) Procedures: HE/Ivelisse, Gross/Micro L4 -------- Patient: GurpreetLiliana davis [id number] (Continued) -------- Specimen: [id number] Received: 07/09/23 (Continued) Signed (signature on file) Jaylen Sauceda MD 07/11/23 1157 -------- Specimen: [id number] Received: 07/09/23 Status: MITCHELL Antoine Num: [id number] Spec Type: Surgical Subm Dr: Oziel Whalen MD Tissues: A Esophagus Biopsy (ESOPHAGUS BX) Procedures: HE/2, Gross/Micro L4 -------- Patient: Phil Vázquezqueline [id number] (Continued) -------- Specimen: [id number] Received: 07/09/23 (Continued) CPT Codes 99334 -------- -------- Specimen: [id number] Received: 07/09/23 Status: MITCHELL Antoine Num: [id number] Spec Type: Surgical Subm Dr: Oziel Whalen MD Tissues: A Esophagus Biopsy (ESOPHAGUS BX) Procedures: HE/2, Gross/Micro L4 -------- Patient: Liliana Vázquez [id number] (Continued) -------- Signed (signature on file) Jaylen Sauceda MD 07/11/23 1157 [facility] 36on 07-02-2023 36 Patient's event monitor showed 19 mins of afib this morning. Strip was emailed to Dr. Ji who recommended she start Eliquis 5mg bid. I then spoke with patient who agreed to start it. Rx was sent to her pharmacy. [facility] Office Visiton 06-25-2023 Follow-up visit [id number] Liliana Vázquez 1960 F Date Provider Department Center 06/25/2023 3848-ANGELLA JI ROM[facility] No family history on file Level of Service:88247 IN OFFICE/OUTPATIENT ESTABLISHED MOD MDM 30-39 MIN Normal [facility] Office Visiton 06-07-2023 Follow-up visit [id number] Katharine Vázquezgamal iWllis 1960 F Date Provider Department Center 06/07/2023 3848-ANGELLA JI [facility] No family history on file Level of Service:19564 IN OFFICE/OUTPATIENT NEW MODERATE MDM 45-59 MINUTES Normal [facility] BNPon 04-29-2023 Natriuretic peptide B (Bld) [Mass/Vol] 181.0 pg/mL Normal <=900.[address] [facility] Comment on above: Performed By: #### B PATENT LEATHER SORTER, CMP, CMADM ####[facility] [address] [place] [address]Dr. Madison Barnhart CARDIAC NAVA ADMITon 023 CK [Catalytic activity/Vol] 78 U/L Normal 26-[address] [facility] Comment on above: Performed By: #### B PATENT LEATHER SORTER, CMP, CMADM ####[facility] [address] [place] [address]Dr. Madison Barnhart CK.MB [Mass/Vol] ng/mL Normal <=3.60 [facility] Comment on above: Performed By: #### B PATENT LEATHER SORTER, CMP, CMADM ####[facility] [address] [place] [address]Dr. Madison Barnhart HSTROP 5.2 pg/mL Normal 4.0-51.[address] [facility] Comment on above: Result Comment: CUT- OFF POINTS HAVE BEEN ESTABLISHED BASED ON THE FOURTH UNIVERSAL DEFINITIONS OF MYOCARDIAL INFARCTION. THE UPPER REFERENCE LIMIT (URL) OF TROPONIN, DEFINED THE 99TH PERCENTILE OF cTnI DISTRIBUTION IN A REFERENCE POPULATION, HAS BEEN CONFIRMED THE DECISION THRESHOLD FOR MT DIAGNOSIS. Performed By: #### B PATENT LEATHER SORTER, CMP, CMADM ####[facility] [address] [place] [address]Dr. Madison Barnhart KG 72 ng/mL Normal 9-[address] [facility] Comment on above: Performed By: #### B PATENT LEATHER SORTER, CMP, CMADM ####[facility] [address] [place] [id number]. Madison Obey CBC AUTO DIFFon 04-29-2023 BASO # 0.0 103/ul Normal 0.0-0.1 [facility] Comment on above: Performed By: #### C BC ####[facility] [address] [place], [place] [address]Dr. Madison Barnhart Basophils/100 WBC (Bld) 0.3 % Normal 0.2-2.[address] [facility] Comment on above: Performed By: #### C BC ####[facility] [address] [place], [place] [address]Dr. Madison Barnhart EO # 0.1 103/ul Normal 0.0-0.[address] [facility] Comment on above: Performed By: #### C BC ####[facility] [address] [place], [place] [address]Dr. Madison Barnhart Eosinophils/100 WBC (Bld) 2.2 % Normal 0.9-7.0 [facility] Comment on above: Performed By: #### C BC ####[facility] [address] [place], [place] [address]Dr. Madison Barnhart Erythrocyte distribution width (RBC) [Ratio] 13.1 % Normal 11.0-15.0 [facility] Comment on above: Performed By: #### C BC ####[facility] [address] [place], [place] [address]Dr. Madison Barnhart Hematocrit (Bld) [Volume fraction] 42.1 % Normal 36.0-48.0 [facility] Comment on above: Performed By: #### C BC ####[facility] [address] [place], [place] [address]Dr. Madison Barnhart Hemoglobin (Bld) [Mass/Vol] 13.9 g/dL Normal 12.0-16.[address] [facility] Comment on above: Performed By: #### C BC ####[facility] [address] [place], [place] [address]Dr. Madison Barnhart IG # 0.04 10e3/ul Critically high 0.00-0.03 [facility] Comment on above: Performed By: #### C BC ####[facility] [address] [place] [address]Dr. Lamarhilario Barnhart IG % 0.7 % Critically high 0.0-0.5 [facility] Comment on above: Performed By: #### C BC ####[facility] [address] [place] [address]Dr. Madison Obey LYMPH # 0.5 103/ul Critically low 1.2-3.8 [facility] Comment on above: Performed By: #### C BC ####[facility] [address] [place] [address]Dr. Lamarhilario Barnhart Lymphocytes/100 WBC (Bld) 7.9 % Critically low 20.5-60.0 [facility] Comment on above: Performed By: #### C BC ####[facility] [address] [place] [address]Dr. Madison Barnhart MANUAL DIFF REQ NO Normal [facility] Comment on above: Performed By: #### C BC ####[facility] [address] [place] [address]Dr. Madison Obey MCH (RBC) [Entitic mass] 30.7 pg Normal 26.7-34.0 [facility] Comment on above: Performed By: #### C BC ####[facility] [address]wsak[address] [place] [address]Dr. Lamarhilario Barnhart MCHC (RBC) [Mass/Vol] 33.0 g/dL Normal 29.9-35.[address] [facility] Comment on above: Performed By: #### C BC ####[facility] [address] [place] [address]Dr. Lamarhilario Barnhart MCV (RBC) [Entitic vol] 92.9 fL Normal 81.0-99.[address] [facility] Comment on above: Performed By: #### C BC ####[facility] [address] [place] [address]Dr. Madison Barnhart MONO # 0.8 103/ul Normal 0.3-0.8 [facility] Comment on above: Performed By: #### C BC ####[facility] [address]ef[address] [place] [address]Dr. Madison Barnhart Monocytes/100 WBC (Bld) 13.1 % Critically high 1.7-12.[address] [facility] Comment on above: Performed By: #### C BC ####[facility] [address]qzz[address] [place] [address]Dr. Madison Barnhart NEUT # 4.6 103/ul Normal 1.4-6.[address] [facility] Comment on above: Performed By: #### C BC ####[facility] [address]air[address] [place] [address]Dr. Madison Barnhart Neutrophils/100 WBC (Bld) 75.8 % Critically high 43.0-75.[address] [facility] Comment on above: Performed By: #### C BC ####[facility] [address] [place] [address]Dr. Madison Barnhart Platelet mean volume (Bld) [Entitic vol] 9.4 fL Critically low 9.5-13.5 [facility] Comment on above: Performed By: #### C BC ####[facility] [address] [place] [address]Dr. Madison Barnhart PLT 237 103/ul Normal 150-[address] [facility] Comment on above: Performed By: #### C BC ####[facility] [address] [place] [address]Dr. Madison Barnhart RBC 4.53 106/ul Normal 4.20-5.[address] [facility] Comment on above: Performed By: #### C BC ####[facility] [address] [place] [address]Dr. Madison Barnhart WBC 6.0 103/ul Normal 4.0-11.[address] [facility] Comment on above: Performed By: #### C BC ####[facility] [address] [place], [place] [address]Dr. Madison Barnhart CT CHEST W CONon 04-29-2023 [...] by: TL UNLU Date: 2023-04-29 14:57 Normal [facility] D-Dimer High Sensitivityon 0 04-29-2023 D-Dimer High Sensitivity < 200 Normal 0-243 [facility] Comment on above: Result Comment: The [...] patients due to co-morbid conditions. PERFORMED BY: [place] [address] PATHOLOGIST RESOURCE SPECIALIST TEACHER HOWIE BARKER M.D. Performed By: #### D DIMER #### [address] No Panel InformationOrdered By: Payal [email or web address] 04-29-2023 D-Dimer Quantitative (PE/DVT) < 200 ng/mL 0-243 [facility] Comment on above: The reference range [...] Albumin [Mass/Vol] 3.2 g/dL Critically low 3.4-5.0 [facility] Comment on above: Performed By: #### B PATENT LEATHER SORTER, CMP, CMADM ####[facility] [address] [place] [address]Dr. Madison Barnhart Albumin/Globulin [Mass ratio] 1.1 {ratio} Normal [facility] Comment on above: Performed By: #### B PATENT LEATHER SORTER, CMP, CMADM ####[facility] [address] [place] [address]Dr. Madison Barnhart ALP [Catalytic activity/Vol] 119 U/L Critically high 46-116 [facility] Comment on above: Performed By: #### B PATENT LEATHER SORTER, CMP, CMADM ####[facility] [address] [place] [address]Dr. Madison Barnhart ALT [Catalytic activity/Vol] 32 U/L Normal 14-59 [facility] Comment on above: Performed By: #### B PATENT LEATHER SORTER, CMP, CMADM ####[facility] [address] [place] [address]Dr. Madison Barnhart Anion gap [Moles/Vol] 10.4 mmol/L Normal [facility] Comment on above: Performed By: #### B PATENT LEATHER SORTER, CMP, CMADM ####[facility] [address] [place] [address]Dr. Madison Barnhart AST [Catalytic activity/Vol] 21 U/L Normal 15-[address] [facility] Comment on above: Performed By: #### B PATENT LEATHER SORTER, CMP, CMADM ####[facility] [address] [place] [address]Dr. Madison Barnhart Bilirubin [Mass/Vol] 0.6 mg/dL Normal 0.2-1.[address] [facility] Comment on above: Performed By: #### B PATENT LEATHER SORTER, CMP, CMADM ####[facility] [address] [place] [address]Dr. Madison Barnhart Calcium [Mass/Vol] 8.2 mg/dL Critically low 8.5-10.1 [facility] Comment on above: Performed By: #### B PATENT LEATHER SORTER, CMP, CMADM ####[facility] [address] [place] [address]Dr. Madison Barnhart Chloride [Moles/Vol] 107 mmol/L Normal 98-[address] [facility] Comment on above: Performed By: #### B PATENT LEATHER SORTER, CMP, CMADM ####[facility] [address] [place] [address]Dr. Madison Barnhart CO2 [Moles/Vol] 27.7 mmol/L Normal 21.0-32.0 [facility] Comment on above: Performed By: #### B PATENT LEATHER SORTER, CMP, CMADM ####[facility] [address] [place] [address]Dr. Madison Barnhart Creatinine [Mass/Vol] 1.19 mg/dL Critically high 0.55-1.02 [facility] Comment on above: Performed By: #### B PATENT LEATHER SORTER, CMP, CMADM ####[facility] [address] [place] [address]Dr. Madison Barnhart EGFR-AF BELIZEAN 56 mL/min/1.73m2 Critically low >=[address] [facility] Comment on above: Performed By: #### B PATENT LEATHER SORTER, CMP, CMADM ####[facility] [address] [place] [address]Dr. Madison Barnhart EGFR-NON AF BELIZEAN 46 mL/min/1.73m2 Critically low >=[address] [facility] Comment on above: Performed By: #### B PATENT LEATHER SORTER, CMP, CMADM ####[facility] [address] [place] [address]Dr. Madison Barnhart Globulin (S) [Mass/Vol] 3.0 g/dL Normal [facility] Comment on above: Performed By: #### B PATENT LEATHER SORTER, CMP, CMADM ####[facility] [address] [place] [address]Dr. Madison Barnhart Glucose [Mass/Vol] 122 mg/dL Critically high 74-106 [facility] Comment on above: Performed By: #### B PATENT LEATHER SORTER, CMP, CMADM ####[facility] [address] [place] [address]Dr. Madison Barnhart Potassium [Moles/Vol] 4.1 mmol/L Normal 3.5-5.1 [facility] Comment on above: Performed By: #### B PATENT LEATHER SORTER, CMP, CMADM ####[facility] [address] [place] [address]Dr. Madison Barnhart Protein [Mass/Vol] 6.2 g/dL Critically low 6.4-8.2 [facility] Comment on above: Performed By: #### B PATENT LEATHER SORTER, CMP, CMADM ####[facility] [address] [place] [address]Dr. Madison Barnhart Sodium [Moles/Vol] 141 mmol/L Normal 136-145 [facility] Comment on above: Performed By: #### B PATENT LEATHER SORTER, CMP, CMADM ####[facility] [address] [place] [address]Dr. aMdison Barnhart Urea nitrogen [Mass/Vol] 16.0 mg/dL Normal 7.0-18.0 [facility] Comment on above: Performed By: #### B PATENT LEATHER SORTER, CMP, CMADM ####[facility] [address] [place] [address]Dr. Madison Barnhart Urea nitrogen/Creatinine [Mass ratio] 13.4 mg/mg Normal [facility] Comment on above: Performed By: #### B PATENT LEATHER SORTER, CMP, CMADM ####[facility] [address] [place], [place] [address]Dr. Madison Barnhart TROPONIN, HIGH SENSITIVITYon 04-29-2023 HSTROP 5.2 pg/mL Normal 4.0-51.3 [facility] Comment on above: Result Comment: CUT- OFF POINTS HAVE BEEN ESTABLISHED BASED ON THE FOURTH UNIVERSAL DEFINITIONS OF MYOCARDIAL INFARCTION. THE UPPER REFERENCE LIMIT (URL) OF TROPONIN, DEFINED THE 99TH PERCENTILE OF cTnI DISTRIBUTION IN A REFERENCE POPULATION, HAS BEEN CONFIRMED THE DECISION THRESHOLD FOR MT DIAGNOSIS. Performed By: #### H STROPN #### [facility] [address] [place] [address] Dr. Madison Barnhart XR CHEST 1 Von [...] by: LEEROY VILLA Date: 2023-04-29 11:45 Normal [facility] CREATININE CLEARon CREA CLEARANCE 79.62 ml/min Normal 75.00-115.00 [facility] Comment on above: Result Comment: Prev iously reported as: 1.74 On 06/11/2022 10:36 By [email or web address] Performed By: #### C REACL #### [facility] [address] [place] [address] [address] Madison Barnhart CREA, 24 HR UR 1359.90 mg/24 hr Normal 800.00-1, 800. 00 [facility] Comment on above: Performed By: #### C REACL #### [facility] [address] [place] [address] [address] Madison Barnhart Creatinine [Mass/Vol] 1.08 mg/dL Critically high 0.55-1.02 [facility] Comment on above: Result Comment: repe ated Previously reported as: 49.42 On 06/11/2022 10:36 By [email or web address] Performed By: #### C REACL #### [facility] [address] [place] [address] [address] Madison Barnhart UR TOT VOL 3000 ml/24 HR Normal [facility] Comment on above: Performed By: #### C REACL #### [facility] [address] [place] [address] [address] Madison Barnhart URINE CREAT 45.33 mg/dL Normal 20.00-300.00 [facility] Comment on above: Performed By: #### C REACL #### [facility] [address] [place] [address] [address] Madison Barnhart ECHOCARDIO M/2D COMPLETEon 0 06-11-2022 ECHOCARDIO M/2D COMPLETE Patient: LILIANA VÁZQUEZ Exam Date: 06/11/2022 : 1960 Gender:F Ordering : DR DEDE MICHAELS . Admission #: [id number] Family : Order #: [id number] CLICK HERE TO VIEW EXAM ECHOCARDIOGRAM REPORT [...] M.D. on 06/11/2022 at 16:[address] [facility] PROTEIN 24HR URINEon 022 T PROT, 24 HR UR 123.0 mg/24 hr Normal <=149.[address] [facility] Comment on above: Performed By: #### P ROT24U ####[facility] [address] [place] [address]Dr. Madison Barnhart UR PROT 4.1 mg/dL Normal <=11.[address] [facility] Comment on above: Performed By: #### P ROT24U ####[facility] [address] [place] [address]Dr. Madison Barnhart UR TOT VOL 3000 ml/24 HR Normal [facility] Comment on above: Performed By: #### P ROT24U ####[facility] [address] [place] [address]Dr. Madison Barnhart INSULINon 06-05-2022 Insulin 10.2 uIU/mL Normal 2.6-24.[address] [facility] Comment on above: Performed By: #### I NSULIN ####[facility] [address] [place] [address]Dr. Madison Barnhart BNPon 06-02-2022 Natriuretic peptide B (Bld) [Mass/Vol] 215.0 pg/mL Normal <=900.[address] [facility] Comment on above: Performed By: #### L IPID, T7, TSH, BNP, CMP #### [facility] [address] [place] [address] [address] Madison Barnhart CBC AUTO DIFFon 06-02-2022 BASO # 0.0 103/ul Normal 0.0-0.1 [facility] Comment on above: Performed By: #### C BC ####[facility] [address] [place], [place] [address]Dr. Madison Barnhart Basophils/100 WBC (Bld) 0.7 % Normal 0.2-2.[address] [facility] Comment on above: Performed By: #### C BC ####[facility] [address] [place] [address]Dr. Madison Barnhart EO # 0.1 103/ul Normal 0.0-0.[address] [facility] Comment on above: Performed By: #### C BC ####[facility] [address] [place] [address]Dr. Madison Barnhart Eosinophils/100 WBC (Bld) 1.5 % Normal 0.9-7.[address] [facility] Comment on above: Performed By: #### C BC ####[facility] [address] [place] [address]Dr. Madison Barnhart Erythrocyte distribution width (RBC) [Ratio] 13.2 % Normal 11.0-15.[address] [facility] Comment on above: Performed By: #### C BC ####[facility] [address] [place] [address]Dr. Madison Barnhart Hematocrit (Bld) [Volume fraction] 42.2 % Normal 36.0-48.[address] [facility] Comment on above: Performed By: #### C BC ####[facility] [address] [place] [address]Dr. Madison Barnhart Hemoglobin (Bld) [Mass/Vol] 13.7 g/dL Normal 12.0-16.[address] [facility] Comment on above: Performed By: #### C BC ####[facility] [address]th[address] [place] [address]Dr. Madison Barnhart IG # 0.04 10e3/ul Critically high 0.00-0.03 [facility] Comment on above: Performed By: #### C BC ####[facility] [address] [place] [address]Dr. Madison Barnhart IG % 0.7 % Critically high 0.0-0.5 [facility] Comment on above: Performed By: #### C BC ####[facility] [address]cekw[address] [place] [address]Dr. Madison Obey LYMPH # 1.3 103/ul Normal 1.2-3.[address] [facility] Comment on above: Performed By: #### C BC ####[facility] [address] [place] [address]Dr. Madison Obey Lymphocytes/100 WBC (Bld) 23.3 % Normal 20.5-60.[address] [facility] Comment on above: Performed By: #### C BC ####[facility] [address] [place] [address]Dr. Lamarhilario Barnhart MANUAL DIFF REQ NO Normal [facility] Comment on above: Performed By: #### C BC ####[facility] [address] [place] [address]Dr. Madison Obey MCH (RBC) [Entitic mass] 30.6 pg Normal 26.7-34.[address] [facility] Comment on above: Performed By: #### C BC ####[facility] [address] [place] [address]Dr. Madison Obey MCHC (RBC) [Mass/Vol] 32.5 g/dL Normal 29.9-35.[address] [facility] Comment on above: Performed By: #### C BC ####[facility] [address] [place] [address]Dr. Lamarhilario Barnhart MCV (RBC) [Entitic vol] 94.2 fL Normal 81.0-99.[address] [facility] Comment on above: Performed By: #### C BC ####[facility] [address] [place] [address]Dr. Lamarhilario Barnhart MONO # 0.5 103/ul Normal 0.3-0.[address] [facility] Comment on above: Performed By: #### C BC ####[facility] [address] [place] [address]Dr. Lamarhilario Barnhart Monocytes/100 WBC (Bld) 8.8 % Normal 1.7-12.[address] [facility] Comment on above: Performed By: #### C BC ####[facility] [address] [place] [address]Dr. Lamarhilario Obey NEUT # 3.5 103/ul Normal 1.4-6.[address] [facility] Comment on above: Performed By: #### C BC ####[facility] [address] [place] [address]Dr. Madison Obey Neutrophils/100 WBC (Bld) 65.0 % Normal 43.0-75.[address] [facility] Comment on above: Performed By: #### C BC ####[facility] [address] [place] [address]Dr. Madison Barnhart Platelet mean volume (Bld) [Entitic vol] 9.0 fL Critically low 9.5-13.[address] [facility] Comment on above: Performed By: #### C BC ####[facility] [address] [place] [address]Dr. Madison Barnhart PLT 245 103/ul Normal 150-[address] [facility] Comment on above: Performed By: #### C BC ####[facility] [address] [place] [address]Dr. Madison Barnhart RBC 4.48 106/ul Normal 4.20-5.[address] [facility] Comment on above: Performed By: #### C BC ####[facility] [address] [place] [address]Dr. Madison Barnhart WBC 5.4 103/ul Normal 4.0-11.[address] [facility] Comment on above: Performed By: #### C BC ####[facility] [address] [place] [address]DrStefania Barnhart FREE THYROXINE INDEX T7on FTI 2.26 Normal 1.30-4.[address] [facility] Comment on above: Performed By: #### L IPID, T7, TSH, BNP, CMP #### [facility] [address] [place], [place] [address] Dr. Madison Barnhart T3U 31.0 % Normal 30.0-39.[address] [facility] Comment on above: Performed By: #### L IPID, T7, TSH, BNP, CMP #### [facility] [address] [address] [address] Madison Barnhart T4 [Mass/Vol] 7.30 ug/dL Normal 4.80-13.90 [facility] Comment on above: Performed By: #### L IPID, T7, TSH, BNP, CMP #### [facility] [address] [address] [address] Madison Barnhart GLYCOHEMOGLOBIN A1Con 2021 ADA RECOMMENDATION SEE BELOW Normal The [facility] Comment on above: Result Comment: ADA RECOMMENDED LIMIT 4.0 - 6.0 ADA THERAPEUTIC TARGET < 7.0 ACTION SUGGESTED > 7.0 Performed By: #### A 1C ####[facility] [address] [address]Dr[address] Madison Barnhart Glucose [Mass/Vol] 117 mg/dL Normal [facility] Comment on above: Performed By: #### A 1C ####[facility] [address] [address]Dr[address] Madison Barnhart HbA1c (Bld) [Mass fraction] 5.7 % Normal 4.5-6.2 [facility] Comment on above: Performed By: #### A 1C ####[facility] [address] [address]Dr. Madison Barnhart IRONon 06-02-2022 Iron [Mass/Vol] 85.0 ug/dL Normal 50.0-170.0 [facility] Comment on above: Performed By: #### I JACK ####[facility] [address] [address]. Madison Barnhart LIPID PROFILEon 06-02-2022 CHOL-HDL RATIO NORM SEE BELOW Normal The [facility] Comment on above: Result Comment: 3.3 - 4.4 LOW RISK 4.4 - 7.1 AVERAGE RISK 7.1 - 11.0 MODERATE RISK >11.0 HIGH RISK Performed By: #### L IPID, T7, TSH, BNP, CMP #### [facility] [address] [address] [address] Madison Barnhart Cholesterol [Mass/Vol] 238 mg/dL Critically high <=200 [facility] Comment on above: Performed By: #### L IPID, T7, TSH, BNP, CMP #### [facility] [address] [address] [address] Madison Barnhart Cholesterol in HDL [Mass/Vol] 90 mg/dL Critically high 40-60 [facility] Comment on above: Performed By: #### L IPID, T7, TSH, BNP, CMP #### [facility] [address] [address] [address] Madison Barnhart Cholesterol in LDL [Mass/Vol] 132.4 mg/dL Normal [facility] Comment on above: Performed By: #### L IPID, T7, TSH, BNP, CMP #### [facility] [address] [place] [address] Dr. Madison Barnhart Cholesterol.total/Chol esterol in HDL [Mass ratio] 2.6 {ratio} Normal [facility] Comment on above: Performed By: #### L IPID, T7, TSH, BNP, CMP #### [facility] [address] [place] [address] Dr. Madison Barnhart HDL NORMAL > or = 60 mg/dl - LO W CARDIOVASCULAR RISK <40 mg/dl - HIGH CARDIOVASCULAR RISK Normal [facility] Comment on above: Performed By: #### L IPID, T7, TSH, BNP, CMP #### [facility] [address] [address] [address] Madison Barnhart LDL CALC NORMAL SEE BELOW Normal [facility] Comment on above: Result Comment: <100 mg/dl OPTIMAL 100 - 129 mg/dl NEAR OR ABOVE OPTIMAL 130 - 159 mg/dl BORDERLINE HIGH 160 - 189 mg/dl HIGH >190 mg/dl VERY HIGH Performed By: #### L IPID, T7, TSH, BNP, CMP #### [facility] [address] [place] [address] Dr. Madison Barnhart Triglyceride [Mass/Vol] 78 mg/dL Normal <=150 [facility] Comment on above: Performed By: #### L IPID, T7, TSH, BNP, CMP #### [facility] [address] [place] [address] Dr. Madison Barnhart VLDL CALC 15.6 mg/dL Normal [facility] Comment on above: Performed By: #### L IPID, T7, TSH, BNP, CMP #### [facility] [address] [place] [address] Dr. Madison Barnhart PROF 14(COMP METB)on 022 Albumin [Mass/Vol] 3.5 g/dL Normal 3.4-5.0 [facility] Comment on above: Performed By: #### L IPID, T7, TSH, BNP, CMP #### [facility] [address] [place] [address] Dr. Madison Barnhart Albumin/Globulin [Mass ratio] 1.1 {ratio} Normal [facility] Comment on above: Performed By: #### L IPID, T7, TSH, BNP, CMP #### [facility] [address] [place] [address] Dr. Madison Barnhart ALP [Catalytic activity/Vol] 92 U/L Normal 46-116 [facility] Comment on above: Performed By: #### L IPID, T7, TSH, BNP, CMP #### [facility] [address] [place] [address] Dr. Madison Barnhart ALT [Catalytic activity/Vol] 28 U/L Normal 14-59 [facility] Comment on above: Performed By: #### L IPID, T7, TSH, BNP, CMP #### [facility] [address] [place] [address] Dr. Madison Barnhart Anion gap [Moles/Vol] 10.6 mmol/L Normal [facility] Comment on above: Performed By: #### L IPID, T7, TSH, BNP, CMP #### [facility] [address] [place] [address] Dr. Madison Barnhart AST [Catalytic activity/Vol] 17 U/L Normal 15-37 [facility] Comment on above: Performed By: #### L IPID, T7, TSH, BNP, CMP #### [facility] [address] [place] [address] Dr. Madison Barnhart Bilirubin [Mass/Vol] 0.5 mg/dL Normal 0.2-1.0 [facility] Comment on above: Performed By: #### L IPID, T7, TSH, BNP, CMP #### [facility] [address] [address] [address] Madison Barnhrat Calcium [Mass/Vol] 8.4 mg/dL Critically low 8.5-10.[address] [facility] Comment on above: Performed By: #### L IPID, T7, TSH, BNP, CMP #### [facility] [address] [address] [address] Madison Barnhart Chloride [Moles/Vol] 105 mmol/L Normal 98-[address] [facility] Comment on above: Performed By: #### L IPID, T7, TSH, BNP, CMP #### [facility] [address] [place] [address] Dr. Madison Barnhart CO2 [Moles/Vol] 28.3 mmol/L Normal 21.0-32.0 [facility] Comment on above: Performed By: #### L IPID, T7, TSH, BNP, CMP #### [facility] [address] [place] [address] Dr. Madison Barnhart Creatinine [Mass/Vol] 1.08 mg/dL Critically high 0.55-1.02 [facility] Comment on above: Performed By: #### L IPID, T7, TSH, BNP, CMP #### [facility] [address] [place] [address] Dr. Madison Barnhart EGFR-AF BELIZEAN >60 Normal >=60 [facility] Comment on above: Performed By: #### L IPID, T7, TSH, BNP, CMP #### [facility] [address] [place] [address] Dr. Madison Barnhart EGFR-NON AF BELIZEAN 52 mL/min/1.73m2 Critically low >=[address] [facility] Comment on above: Performed By: #### L IPID, T7, TSH, BNP, CMP #### [facility] [address] [place] [address] Dr. Madison Barnhart Globulin (S) [Mass/Vol] 3.3 g/dL Normal [facility] Comment on above: Performed By: #### L IPID, T7, TSH, BNP, CMP #### [facility] [address] [address] [address] Madison Barnhart Glucose [Mass/Vol] 99 mg/dL Normal 74-106 [facility] Comment on above: Performed By: #### L IPID, T7, TSH, BNP, CMP #### [facility] [address] [place] [address] Dr. Madison Barnhart Potassium [Moles/Vol] 3.9 mmol/L Normal 3.5-5.1 [facility] Comment on above: Performed By: #### L IPID, T7, TSH, BNP, CMP #### [facility] [address] [place] [address] Dr. Madison Barnhart Protein [Mass/Vol] 6.8 g/dL Normal 6.4-8.2 [facility] Comment on above: Performed By: #### L IPID, T7, TSH, BNP, CMP #### [facility] [address] [place] [address] Dr. Madison Barnhart Sodium [Moles/Vol] 140 mmol/L Normal 136-145 [facility] Comment on above: Performed By: #### L IPID, T7, TSH, BNP, CMP #### [facility] [address] [place] [address] Dr. Madison Barnhart Urea nitrogen [Mass/Vol] 22.0 mg/dL Critically high 7.0-18.0 [facility] Comment on above: Performed By: #### L IPID, T7, TSH, BNP, CMP #### [facility] [address] [place] [address] Dr. Madison Barnhart Urea nitrogen/Creatinine [Mass ratio] 20.4 mg/mg Normal [facility] Comment on above: Performed By: #### L IPID, T7, TSH, BNP, CMP #### [facility] [address] [place] [address] Dr. Madison Barnhart TSHon 06-02-2022 TSH 1.046 uIU/mL Normal 0.358-3.740 [facility] Comment on above: Performed By: #### L IPID, T7, TSH, BNP, CMP #### [facility] [address] [address] [address] Madison Barnhart Ambulatory Clinical Summaryo n 08-09-2020 Ambulatory Clinical Summary {[id number] Normal [facility] Coding Summary.on 10-27-2019 Coding Summary. CODING DATE: 10/27/2019 FINAL [facility] STATUS: Home (Routine DC) PAYOR: Ivana [...] Marcus Date Saved: 10/27/2019 03:40 pm [facility] Vital Signs Date Time Vital Sign Value Performing Clinician Facility 08-16-2023 14:00-0400 Body height 172.72 cm Markell Odell Other [facility] Other 08-16-2023 14:00-0400 Body mass index (BMI) [Ratio] 25.39 kg/m2 Markell Odell Other [facility] Other 08-16-2023 14:00-0400 Body weight 75.75 kg Markell Odell Other [facility] Other 08-16-2023 14:00-0400 Diastolic blood pressure 78 mm[Hg] Markell Odell Other [facility] Other 08-16-2023 14:00-0400 Systolic blood pressure 138 mm[Hg] Markell Odell Other [employer] [facility] [employer] Other 07-09-2023 14:02-0400 Diastolic blood pressure 67 mm[Hg] MD Dede Michaels Work Phone: [facility] 07-09-2023 14:02-0400 Heart rate 55 /min MD Dede Michaels Work Phone: [facility] 07-09-2023 14:02-0400 Respiratory rate 16 /min MD Dede Michaels Work Phone: [facility] 07-09-2023 14:02-0400 SaO2% (BldA) [Mass fraction] 98 % MD Dede Michaels Work Phone: [facility] 07-09-2023 14:02-0400 Systolic blood pressure 128 mm[Hg] MD Dede Michaels Work Phone: [facility] 07-09-2023 12:16-0400 Body height 172.72 cm MD Dede Michaels Work Phone: [facility] 07-09-2023 12:16-0400 Body temperature 97.8 [degF] MD Dede Michaels Work Phone: [facility] 07-09-2023 12:16-0400 Body weight 77.11 kg MD Dede Michaels Work Phone: [facility] Encounters Encounter Date Encounter Type Care Provider Facility Start: 02-07-2024 End: 02-07-2024 ambulatory [facility] Start: 12-20-2023 End: 12-20-2023 ambulatory [facility] Start: 08-20-2023 End: 08-20-2023 ambulatory Markell Odell Other [facility] [employer] Other Start: 08-20-2023 Telephone encounter [facility] Valer[facility] Start: 08-16-2023 End: 08-16-2023 ambulatory [address] Odell Other [facility] [employer] Other Start: 08-16-2023 Office outpatient visit 15 minutes Markell Odell [facility] Start: 08-09-2023 End: 08-12-2023 ambulatory [facility] Start: 07-09-2023 End: 07-09-2023 ambulatory Oziel Whalen Facility:[facility] Start: 07-09-2023 End: 07-09-2023 Admission to same day surgery center MD Deed Michaels Work Phone: [facility] Work Phone: Start: 07-09-2023 End: 07-09-2023 ambulatory MD Dede Michaels Work Phone: [facility] Work Phone: Start: 06-25-2023 End: 06-25-2023 ambulatory [facility] Start: 06-07-2023 End: 06-07-2023 ambulatory [facility] Start: 04-29-2023 End: 04-29-2023 ambulatory PAYAL FRANCO . [facility] Work Phone: Start: 04-29-2023 End: 04-29-2023 Departed Referred MD Payal Franco Work Phone: [facility] [place] Work Phone: Start: 06-11-2022 End: 06-12-[address] DEDE MICHAELS . Facility:[facility] Start: 06-02-2022 End: 06-03-[address] DEDE MICHAELS . Facility:[facility] Procedures Date Procedure Procedure Detail Performing Clinician Start: 07-09-2023 Esophagogastroduodenoscopy MD Dede Michaels Work Phone: Plan of Treatment Date Care Activity Detail Author Start: 07-09-2023 [facility] Patient Education Hiatal Hernia (DC) [facility] Work Phone: Payers Date Payer Category Payer Self-pay [id number] 2023 Unknown [id number] [facility] [id number] 1960 Unknown [id number] [id number] [id number] 1960 Unknown [id number] 2.16.84 [id number] 1960 Unknown [id number] 2.16.84 [id number] 1958 Unknown [id number] Unknown [place] BC/BS [id number] Unknown [id number] 2.16.8 [id number] Unknown [id number] 2.16.8 [id number] Social History Date Type Detail Facility Tobacco smoking status DEIS Unknown if ever smoked [facility] Work Phone: Start: 1960 Sex Assigned At Female F [facility] Start: 07-09-2023 Tobacco smoking status NHIS Never smoked tobacco (finding) [facility] Sex Assigned At Sex Assigned At Bir th [facility] [employer] Other Goals Date Patient Goal Desired Activity [...] -Patient self discontinue (more content not included)... [facility] 02-07-2024 Note Patient here for 2 m [...] All other systems reviewed and are negative. [facility] 12-20-2023 Note Patient being seen v ia telemedicine for bradycardia s/p thyroidectomy. Last night HR was running 47-49. Review of Systems All other systems reviewed and are negative. [facility] 12-20-2023 Note Cardiology Clinic No te Chief [...] using 3rd constitution party telecommunication application (e.g., [employer]) is not HIPPA compliant and may carry some privacy risks. Yes The visit was conducted [id number] with the use of audio and video [...] of Abnormal ECG, Arrhythmia, and Atrial fibrillation ([facility]). Surgical History She has no past [...] on event mo (more content not included)... [facility] 08-20-2023 Evaluation note Encounter Date Diagnosis Assessment Notes Aug, Hiatal hernia (ICD-10 - K44.9) [facility] Other 09-15-2023 Evaluation note* Encounter Date Diagnosis [...] her bed at night RTO 3 months [facility] Other 09-08-2023 NoteCardiology Clinic Note Chief Complaint: [...] of Abnormal ECG, Arrhythmia, and Atrial fibrillation ([facility]). Surgical History She has no past [...] Patient verbalizes understanding (more content not included)... [facility]09-08[facility] NotePatient here for 2 mo follow up. She started Eliquis. Metoprolol was decreased at last visit. She is doing well, denies chest pain and palpitations. Denies bleeding on Eliquis.[facility]08-08-2023 Procedure note [facility]07-25-2023 NoteCardiology Clinic Note Chief Complaint: follow [...] of Abnormal ECG, Arrhythmia, and Atrial fibrillation (CMS/[facility]). Surgical History She has no past [...] was previously not anticoagulated because of low [id number] score. However, after further review of her chart, it appears that Years ago, she had an episode that was concerning for CVA versus TIA. MRI did not demonstrate definite evidence of infarct. As such, her [id number] score is actually 4. I discussed with patient need for anticoagulation. She preferred to proceed with 30-day event monitor. Patient has not had a documented atrial fibrillation on ai (more content not included)...[facility]07-25-2023 NotePatient here to discuss abnormal stress test. Had normal echo, and is still wearing 30 day event monitor.[facility]07-07-2023 Note New patient here to re-establish care. She recently presented to [facility] ED for chest pressure and SOB. She was treated for bronchitis at that time. SUMMERS and palpitations have been worsening lately. Review of Systems Cardiovascular: Positive for chest pain (pressure type), dyspnea on exertion and palpitations. All other systems reviewed and are negative.[facility] 06-07-2023 NoteCardiology Clinic Note Chief Complaint: new [...] of Abnormal ECG, Arrhythmia, and Atrial fibrillation ([facility]). Surgical History She has no past [...] was previously not anticoagulated because of low [id number] score. However, after further review of her chart, it appears that Years ago, she had an episode that was concerning for CVA versus TIA. MRI did not demonstrate definite evidence of infarct. As such, her [id number] score is actually 4. I discussed with [...] plan. -Patient was educat (more content not included)...[facility]07-05-2022 NoteEXAMINATION: CTA CHEST WO W CON HISTORY: [...] Electronically authenticated by: ANDREW RODRIGUEZ Date: 2022-06-05 07:54[facility] noteNo assessment information availableBl[facility] Work Phone: History and physical note Author Oziel Whalen [facility] July 09, 2023 1:21pm Note Date/Time July 09, 2023 1:2 1pm [facility] [address] [place] [address] Gastroenterology H&P Signed Patient: Liliana Vázquez MR# : [id number] : 1960 Acct:[id number] Age/Sex: 63 / F Adm Date: 3 Loc: Room: Type: [facility] Attending Dr: Oziel Whalen MD Copies to: [...] signed by Oziel Whalen MD> 07/09/23 1321 [facility] Work Phone: History general Narrative - Reported* Type Description Date Medical History Hyperthyroidism Medical History high blood pressure Medical History Atrial fibrillation [facility] Other Hospital Discharge instructions Additional Instructions DISCHARGE [...] - Do NOT operate machinery such as [employer], [employer], snow blowers, sewing machines, etc. for 24 [...] problems. -Follow up with PCP. -Office number [phone].[facility] Work Phone: Summary Purpose Family History No [...] and content) DATE CREATED AUTHOR [facility]08/2020 [facility] DATE CREATED AUTHOR AUTHOR'S ORGANIZ ATION 05/11/2023 [facility] DATE CREATED AUTHOR AUTHOR'S ORGANIZ ATION 07/14/2023 [facility] DATE CREATED AUTHOR AUTHOR'S ORGANIZ ATION 02/08/2024 [facility] Care Teams (unrecognized sec tion and content) [...] Member Role Status Dates Dede M MD [place] Primary Care Provider Active Oziel Whalen MD [...] BE BASED ON THE PRIMARY CLINICAL RECORDS. [employer] [facility]. provides no warranty or guarantee of the accuracy or completeness of information in this document.
[2024-02-21 11:51] LABS: Alanine Aminotransferase 25 U/L (14-59); Albumin Level 3.3 g/dL (3.4-5.0); Alkaline Phosphatase 109 U/L (46-116); Anion Gap 14.1; Aspartate Amino Transferase 18 U/L (15-37); BUN Creatinine Ratio 24.5; Bilirubin Total 0.5 mg/dL (0.2-1.0); Calcium 8.7 mg/dL (8.5-10.1); Carbon Dioxide 28.3 mmol/L (21.0-32.0); Chloride 105 mmol/L (98-107); Estimated GFR (African America >60 (>=60); Estimated GFR (Non-African Ame 52 (>=60); Globulin 3.3 g/dL; Glucose 96 mg/dL (74-106); Potassium 4.4 mmol/L (3.5-5.1); Sodium 143 mmol/L (136-145); Total Protein 6.6 g/dL (6.4-8.2)
[2024-02-24 14:09] LABS: Deamidated Gliadin Abs, IgA 4 units (0-19); Deamidated Gliadin Abs, IgG 4 units (0-19); Endomysial Antibody IgA Negative (Negative); Immunoglobulin A, Qn, Serum 169 mg/dL (87-352); t-Transglutaminase (tTG) IgA <2 U/mL (0-3); t-Transglutaminase (tTG) IgG <2 U/mL (0-5)
[2024-02-27 10:08] LABS: F001-IgE Egg White <0.10 kU/L (Class 0); F002-IgE Milk <0.10 kU/L (Class 0); F003-IgE Codfish <0.10 kU/L (Class 0); F004-IgE Wheat <0.10 kU/L (Class 0); F010-IgE Sesame Seed <0.10 kU/L (Class 0); F013-IgE Peanut <0.10 kU/L (Class 0); F014-IgE Soybean <0.10 kU/L (Class 0); F024-IgE Shrimp <0.10 kU/L (Class 0); F256-IgE Walnut <0.10 kU/L (Class 0); F338-IgE Scallop <0.10 kU/L (Class 0)
== END 2024-02-21 10:49 | disposition home or self-care (01) ==
LOC: LAB 10:49
PROVIDERS: PCP Family Medicine; Visit Provider Family Medicine
DX: R10.9 Unspecified abdominal pain (principal)
CPT/HCPCS: 36415; 80053; 82784; 86003; 86231; 86258; 86364